=== PATIENT | female | born 1950 | race Caucasian/White ===

== ENCOUNTER 2016-11-25 11:16 | Inpatient (IN) | payer OTHER ==
[2016-11-25 11:36] VITALS: BMI 21.1
--- NOTE | 2016-11-25 13:55 | HP ---
CIWA Score - CIWA Score Nausea/Vomitin-Int. Nausea w/Dry Heave Muscle Tremors: 4-Moderate,w/Arms Extend Anxiety: 4-Mod. Anxious/Guarded Agitation: 3 Paroxysmal Sweats: 1-Minimal Palms Moist Orientation: 0-Oriented Tacttile Disturbances: 2-Mild Itch/Numbness/Burn Auditory Disturbances: 0-None Visual Disturbances: 0-None Headache: 0-None Present CIWA-Ar Total Score: 18 Admission ROS S - HPI Chief Complaint: DETOX TX FOR XANAX DEPENDENCE Allergies/Adverse Reactions: Allergies Allergy/AdvReac Type Severity Reaction Status Date / Time lamotrigine [From Lamictal] Allergy Severe Rash Verified 11/25/16 11:48 History of Present Illness: 66 Y/O FEMALE WITH A HX OF XANAX, COCAINE Exam Limitations: No Limitations - Ebola screening Have you traveled outside of the country in the last 21 days: No Have you had contact with anyone from an Ebola affected area: No Have you been sick,other than usual withdrawal symptoms: No Do you have a fever: No - Review of Systems Constitutional: Chills, Loss of Appetite, Night Sweats, Changes in sleep, Unintentional Wgt. Loss EENT: reports: Dental Problems (NO TEETH;LOST DENTURES SINCE 2005) Respiratory: reports: No Symptoms reported Cardiac: reports: Lightheadedness, Palpitations GI: reports: Constipated, Nausea, Poor Appetite, Vomiting : reports: No Symptoms Reported Musculoskeletal: reports: Back Pain (BACK SX 03/07/16--4 METAL PLATES IN LOWER BACK) Integumentary: reports: No Symptoms Reported Neuro: reports: Headache, Numbness, Seizure (DUE TO WITHDRAWAL SX), Tingling, Tremors, Unsteady Gait, Dizziness Endocrine: reports: No Symptoms Reported Hematology: reports: No Symptoms Reported Psychiatric: reports: Orientated x3, Anxious, Depressed Other Systems: Reviewed and Negative Patient History - Patient Medical History Hx Anemia: No Hx Asthma: No Hx Chronic Obstructive Pulmonary Disease (COPD): No Hx Cancer: No Hx Cardiac Disorders: No Hx Congestive Heart Failure: No Hx Hypertension: No Hx Hypercholesterolemia: No Hx Pacemaker: No HX Cerebrovascular Accident: No Hx Seizures: Yes (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 was in 08/2016) Hx Diabetes: No Hx Gastrointestinal Disorders: No Hx Liver Disease: No Hx Genitourinary Disorders: No Hx Sexually Transmitted Disorders: No Hx Renal Disease (ESRD): No Hx Thyroid Disease: No Hx Human Immunodeficiency Virus (HIV): Yes (since 2000;NORVIR, PREZISTA;TRUVADA) Hx Hepatitis C: Yes (1987) Hx Depression: Yes Hx Suicide Attempt: Yes (pill overdose in 02/2016;DENIES CURRENT S/H IDEATIONS.) Hx Bipolar Disorder: Yes Hx Schizophrenia: No - Patient Surgical History Past Surgical History: Yes Hx Neurologic Surgery: No Hx Cataract Extraction: No Hx Cardiac Surgery: No Hx Lung Surgery: No Hx Breast Surgery: No Hx Breast Biopsy: No Hx Abdominal Surgery: No Hx Appendectomy: No Hx Cholecystectomy: No Hx Genitourinary Surgery: No Hx Section: No Hx Orthopedic Surgery: Yes (LOWER BACK SX WITH 4 PLATES IN 03/07/2016) Other Surgical History: fx, both legs and right knee in 2002 Anesthesia Reaction: No - PPD History Previous Implant?: Yes Documented Results: Negative w/proof Implanted On Prior [facility] Admission?: Yes Date: 10/29/14 Results: 0 mm PPD to be Administered?: Yes - Reproductive History Patient is a Female of Child Bearing Age (11 -55 yrs old): Yes LMP comment: AT AGE 57 Patient : No - Smoking Cessation Smoking history: Current every day smoker Have you smoked in the past 12 months: Yes Aproximately how many cigarettes per day: 7 Cigars Per Day: 0 Hx Chewing Tobacco Use: No Initiated information on smoking cessation: Yes 'Breaking Loose' booklet given: 11/25/16 - Substance & Tx. History Hx Alcohol Use: No (DENIES) Hx Substance Use: Yes (COCAINE/XANAX) Substance Use Type: Cocaine, Tranquilizers Hx Substance Use Treatment: Yes (LAST TX AT [facility]-DETOX; PSYCH @ [facility] 3 MONTHS AGO.) - Substances Abused Crack Route: Smoking Frequency: 1-3 times last 30 days Amount used: $10-15 Age of first use: 37 Date of Last Use: 11/23/16 Xanax Route: Oral Frequency: Daily Amount used: 10 mg. Age of first use: 37 Date of Last Use: 11/24/16 Family Disease History - Family Disease History Family Disease History: Other: Brother (dsa), Sister (alcohol,dsa) Admission Physical Exam BHS - Vital Signs Vital Signs: Vital Signs - 24 hr 11/25/16 11:32 Temperature 98.1 F Pulse Rate 100 H Respiratory 18 Rate Blood Pressure 108/78 - Physical General Appearance: Yes: Appropriately Dressed, Mild Distress, Irritable, Anxious HEENTM: Yes: EOMI, Normocephalic, EMILY, Pharynx Normal Respiratory: Yes: Chest Non-Tender, Lungs Clear, Normal Breath Sounds, No Respiratory Distress Neck: Yes: No masses,lesions,Nodules, Supple, Trachea in good position Breast: Yes: Breast Exam Deferred Cardiology: Yes: Regular Rhythm, Regular Rate, S1, S2 Abdominal: Yes: Normal Bowel Sounds, Non Tender, Soft Genitourinary: Yes: Other (N/C) Back: Yes: Within Normal Limits Musculoskeletal: Yes: full range of Motion, Gait Steady Extremities: Yes: Normal Range of Motion, Non-Tender 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: 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: 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 NML intact, Fully Oriented, Alert Integumentary: Yes: Dry, Warm Lymphatic: Yes: Within Normal Limits - Diagnostic (1) Cocaine dependence Current Visit: Yes Status: Acute Qualifiers: Substance use status: uncomplicated Qualified Code(s): F14.20 - Cocaine dependence, uncomplicated (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 Current Visit: No Status: Resolved (3) Nicotine dependence Current Visit: Yes Status: Acute Qualifiers: Nicotine product type: cigarettes Substance use status: in withdrawal Qualified Code(s): F17.213 - Nicotine dependence, cigarettes, with withdrawal (4) Seizure Current Visit: No Status: Chronic (5) HIV disease Current Visit: Yes Status: Chronic (6) Hepatitis C Current Visit: Yes Status: Chronic Qualifiers: Viral hepatitis chronicity: chronic (7) Methadone maintenance therapy patient Current Visit: Yes Status: Chronic (8) Sedative, hypnotic or anxiolytic dependence with withdrawal, uncomplicated Current Visit: Yes Status: Acute Cleared for Admission S - Detox or Rehab S Level of Care: Medically Managed Detox Regimen/Protocol: Valium S Breath Alcohol Content Breath Alcohol Content: 0 Urine Pregancy Test - Result Urine Test Results: Negative- NO Line Present Urine Drug Screen - Results Drug Screen Negative: No Urine Drug Screen Results: YAZ-Cocaine, BZO-Benzodiazepines, MTD-Methadone, TCA- Tricyclic Antidepress
[2016-11-25] MEDS ORDERED: P-EPHED 60MG/TRIPROLIDI 2.5MG TABLET PO PRN (14:30)
[2016-11-25] MEDS ORDERED: MAG HYDROX/AL HYDROX/SIMETH 30 ML UNIT-DOSE CUP PO PRN (14:30)
[2016-11-25] MEDS ORDERED: hydrOXYzine PAMOATE 50 MG CAPSULE (FP) PO PRN (14:30)
[2016-11-25] MEDS ORDERED: MAGNESIUM CITRATE 300 ML BOTTLE PO PRN (14:30)
[2016-11-25] MEDS ORDERED: ACETAMINOPHEN 325 MG TABLET (FP) PO PRN (14:30)
[2016-11-25] MEDS ORDERED: IBUPROFEN 400 MG TABLET (FP) PO PRN (14:30)
[2016-11-25] MEDS ORDERED: guaiFENesin/D-METHORPHAN HB 10 ML UNIT-DOSE CUPS PO PRN (14:30)
[2016-11-25] MEDS ORDERED: MAGNESIUM HYDROX 2400MG/30ML ORAL SUSPENSION 30 ML CUP PO PRN (14:30)
[2016-11-25] MEDS ORDERED: MENTHOL/PHENOL 1 EACH UD MM PRN (14:30)
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
[2016-11-25] MEDS ORDERED: diazePAM 5 MG TABLET PO ONE (16:30)
[2016-11-25] MEDS: NICOTINE POLACRILEX 2 MG GUM BC PRN (16:42)
[2016-11-25] MEDS: NICOTINE 14 MG/24 HOURS TOPICAL PATCH TD SCH (16:45)
[2016-11-25 21:11] LABS: URINE APPEARANCE SLCLOUDY; URINE BILIRUBIN NEGATIVE (NEGATIVE); URINE BLOOD NEGATIVE (NEGATIVE); URINE COLOR AMBER; URINE GLUCOSE (UA) NEGATIVE (NEGATIVE); URINE KETONE NEGATIVE (NEGATIVE); URINE NITRITE NEGATIVE (NEGATIVE); URINE UROBILINOGEN 4.0 E.U/dl mg/dL (0.2-1.0)
[2016-11-25 21:18] LABS: URINE LEUK ESTERASE 1+ (NEGATIVE); URINE PROTEIN 1+ (NEGATIVE)
[2016-11-25 21:32] LABS: URINE MUCUS MANY; URINE RBC 2 /hpf (0-3); URINE WBC 13 /hpf (3-5)
[2016-11-25] MEDS: QUEtiapine FUMARATE 200 MG TABLET PO SCH (22:14)
[2016-11-25] MEDS: diazePAM 5 MG TABLET PO SCH (22:14)
[2016-11-25] MEDS: THIAMINE HCL 100 MG TABLET (FP) PO SCH (22:14)
[2016-11-26] MEDS: diazePAM 5 MG TABLET PO PRN ×5 (00:52→20:46)
[2016-11-26] MEDS ORDERED: METHADONE HCL 10 MG TABLET ONE (04:10)
[2016-11-26] MEDS ORDERED: METHADONE HCL 40 MG DISPERSABLE TABLET ONE (04:10)
[2016-11-26] MEDS ORDERED: METHADONE HCL 10 MG TABLET PO SCH (06:00)
[2016-11-26] MEDS: diazePAM 5 MG TABLET PO SCH ×3 (06:00→22:37)
[2016-11-26] MEDS: METHADONE 40 MG, METHADONE 30 MG PO SCH (06:00)
--- NOTE | 2016-11-26 09:31 | EKG ---
Test Reason : Blood Pressure : / mmHG Vent. Rate : 083 BPM Atrial Rate : 083 BPM P-R Int : 144 ms QRS Dur : 084 ms QT Int : 364 ms P-R-T Axes : 034 001 036 degrees QTc Int : 427 ms NORMAL SINUS RHYTHM NORMAL ECG NO PREVIOUS ECGS AVAILABLE Confirmed by MD DEE, WARREN ([id number]) on 11/26/2016 9:31:06 AM Referred By: Confirmed By:WARREN PRICE MD
[2016-11-26] MEDS ORDERED: DULoxetine HCL 60 MG CAPSULE.DR PO SCH (10:00)
[2016-11-26] MEDS: PRENATAL VITAMINS W/ FOLIC ACID TABLET (FP) PO SCH (10:40)
[2016-11-26] MEDS: NICOTINE POLACRILEX 2 MG GUM BC PRN (10:41)
[2016-11-26] MEDS: NICOTINE 14 MG/24 HOURS TOPICAL PATCH TD SCH (10:41)
[2016-11-26 10:59] LABS: MCH 32.3 pg (25.7-33.7); MCHC 33.1 g/dl (32.0-36.0); MEAN CELL VOLUME 97.7 fl (80-96); MEAN PLT VOLUME 10.6 fl (7.5-11.1); RDW 14.8 % (11.6-15.6); WHITE BLOOD COUNT 4.1 K/mm3 (4.0-10.0)
[2016-11-26 11:06] LABS: ALBUMIN 3.5 g/dl (3.4-5.0); ANION GAP 8 (8-16); CO2 29 mmol/L (21-32); GLUCOSE,RANDOM 100 mg/dL (74-106)
[2016-11-26 11:09] LABS: ALK PHOS 67 U/L (45-117); BILIRUBIN,TOTAL 0.4 mg/dL (0.2-1.0); CREATININE 0.8 mg/dL (0.55-1.02); SGOT/AST 23 U/L (15-37); SGPT/ALT 24 U/L (12-78); TOT PROT 6.9 g/dl (6.4-8.2)
[2016-11-26 12:09] LABS: PLATELET ESTIMATE DECREASED (NORMAL)
[2016-11-26 12:10] LABS: PLATELET COMMENT2 NO CLOTTING DETECTED
--- NOTE | 2016-11-26 13:01 | PN ---
S CIWA - CIWA Score Nausea/Vomitin Muscle Tremors: 2 Anxiety: 2 Agitation: 2 Paroxysmal Sweats: 2 Orientation: 0-Oriented Tacttile Disturbances: 1-Very Mild Itch/Numbness Auditory Disturbances: 0-None Visual Disturbances: 0-None Headache: 2-Mild CIWA-Ar Total Score: 13 BHS Progress Note (SOAP) Subjective: interrupted sleep, shakes, sweats Objective: 11/26/16 13:00 Vital Signs - 8 hr 11/26/16 11/26/16 06:53 10:00 Temperature 98.1 F 97.2 F L Pulse Rate 87 76 Respiratory 16 18 Rate Blood Pressure 92/55 102/59 Laboratory Last Values WBC 4.1 K/mm3 (4.0-10.0) D 11/26/16 06:00 RBC 3.94 M/mm3 (3.60-5.2) D 11/26/16 06:00 Hgb 12.7 GM/dL (10.7-15.3) D 11/26/16 06:00 Hct 38.5 % (32.4-45.2) D 11/26/16 06:00 MCV 97.7 fl (80-96) H 11/26/16 06:00 MCH 32.3 pg (25.7-33.7) 11/26/16 06:00 MCHC 33.1 g/dl (32.0-36.0) 11/26/16 06:00 RDW 14.8 % (11.6-15.6) 11/26/16 06:00 Plt Count No Result Required. 11/26/16 06:00 MPV 10.6 fl (7.5-11.1) 11/26/16 06:00 Platelet Estimate Decreased (NORMAL) 11/26/16 06:00 Platelet Comment Mod plt clumping 11/26/16 06:00 Platelet Comment No clotting detected 11/26/16 06:00 Sodium 142 mmol/L (136-145) 11/26/16 06:00 Potassium 3.8 mmol/L (3.5-5.1) 11/26/16 06:00 Chloride 105 mmol/L (98-107) 11/26/16 06:00 Carbon Dioxide 29 mmol/L (21-32) 11/26/16 06:00 Anion Gap 8 (8-16) 11/26/16 06:00 BUN 9 mg/dL (7-18) 11/26/16 06:00 Creatinine 0.8 mg/dL (0.55-1.02) D 11/26/16 06:00 Creat Clearance w eGFR > 60 (>60) 11/26/16 06:00 Random Glucose 100 mg/dL (74-106) 11/26/16 06:00 Calcium 9.0 mg/dL (8.5-10.1) 11/26/16 06:00 Total Bilirubin 0.4 mg/dL (0.2-1.0) D 11/26/16 06:00 AST 23 U/L (15-37) D 11/26/16 06:00 ALT 24 U/L (12-78) D 11/26/16 06:00 Alkaline Phosphatase 67 U/L (45-117) 11/26/16 06:00 Total Protein 6.9 g/dl (6.4-8.2) D 11/26/16 06:00 Albumin 3.5 g/dl (3.4-5.0) D 11/26/16 06:00 Urine Color Jade 11/25/16 20:00 Urine Appearance Slcloudy 11/25/16 20:00 Urine pH 5.0 (5.0-8.0) D 11/25/16 20:00 Ur Specific [place] >= 1.030 (1.005-1.025) H 11/25/16 20:00 Urine Protein 1+ (NEGATIVE) H 11/25/16 20:00 Urine Glucose (UA) Negative (NEGATIVE) 11/25/16 20:00 Urine Ketones Negative (NEGATIVE) 11/25/16 20:00 Urine Blood Negative (NEGATIVE) 11/25/16 20:00 Urine Nitrite Negative (NEGATIVE) 11/25/16 20:00 Urine Bilirubin Negative (NEGATIVE) 11/25/16 20:00 Urine Urobilinogen 4.0 e.u/dl mg/dL (0.2-1.0) H 11/25/16 20:00 Ur Leukocyte Esterase 1+ (NEGATIVE) H 11/25/16 20:00 Urine RBC 2 /hpf (0-3) 11/25/16 20:00 Urine WBC 13 /hpf (3-5) 11/25/16 20:00 Ur Epithelial Cells Few /hpf (FEW) 11/25/16 20:00 Urine Mucus Many 11/25/16 20:00 labs noted Assessment: 11/26/16 13:01 withdrawal sx Plan: continue detox
[2016-11-26] MEDS: QUEtiapine FUMARATE 200 MG TABLET PO SCH (22:37)
[2016-11-26] MEDS: THIAMINE HCL 100 MG TABLET (FP) PO SCH (22:37)
[2016-11-26] MEDS: diphenhydrAMINE HCL 50 MG CAPSULE PO PRN (22:37)
[2016-11-27] MEDS: diazePAM 5 MG TABLET PO PRN ×5 (04:17→21:10)
[2016-11-27] MEDS ORDERED: METHADONE HCL 40 MG DISPERSABLE TABLET ONE (05:00)
[2016-11-27] MEDS ORDERED: METHADONE HCL 10 MG TABLET ONE (05:01)
[2016-11-27] MEDS: TRIMETHOBENZAMIDE HCL 200MG/2ML INJ IM PRN (08:01)
[2016-11-27] MEDS: METHADONE 40 MG, METHADONE 30 MG PO SCH (08:49)
[2016-11-27] MEDS: diazePAM 5 MG TABLET PO SCH ×2 (10:15→22:30)
[2016-11-27] MEDS: PRENATAL VITAMINS W/ FOLIC ACID TABLET (FP) PO SCH (10:15)
[2016-11-27] MEDS: NICOTINE 14 MG/24 HOURS TOPICAL PATCH TD SCH (10:17)
[2016-11-27] MEDS: NICOTINE POLACRILEX 2 MG GUM BC PRN (10:17)
[2016-11-27] MEDS: DULoxetine HCL 30 MG CAPSULE.DR (FP) PO SCH (13:07)
--- NOTE | 2016-11-27 18:43 | PN ---
[facility] CIWA - CIWA Score Nausea/Vomitin-No Nausea/No Vomiting Muscle Tremors: 4-Moderate,w/Arms Extend Anxiety: 4-Mod. Anxious/Guarded Agitation: 4-Moderately Restless Paroxysmal Sweats: 3 Orientation: 0-Oriented Tacttile Disturbances: 1-Very Mild Itch/Numbness Auditory Disturbances: 0-None Visual Disturbances: 0-None Headache: 0-None Present CIWA-Ar Total Score: 16 BHS Progress Note (SOAP) Subjective: Anxiety,tremors,sweating,interrupted sleep,restless. Objective: 11/27/16 18:42 Vital Signs - 8 hr 11/27/16 11/27/16 15:08 17:42 Temperature 97.7 F 98.2 F Pulse Rate 91 H 91 H Respiratory 18 20 Rate Blood Pressure 100/65 102/66 Laboratory Last Values WBC 4.1 K/mm3 (4.0-10.0) D 11/26/16 06:00 RBC 3.94 M/mm3 (3.60-5.2) D 11/26/16 06:00 Hgb 12.7 GM/dL (10.7-15.3) D 11/26/16 06:00 Hct 38.5 % (32.4-45.2) D 11/26/16 06:00 MCV 97.7 fl (80-96) H 11/26/16 06:00 MCH 32.3 pg (25.7-33.7) 11/26/16 06:00 MCHC 33.1 g/dl (32.0-36.0) 11/26/16 06:00 RDW 14.8 % (11.6-15.6) 11/26/16 06:00 Plt Count No Result Required. 11/26/16 06:00 MPV 10.6 fl (7.5-11.1) 11/26/16 06:00 Platelet Estimate Decreased (NORMAL) 11/26/16 06:00 Platelet Comment Mod plt clumping 11/26/16 06:00 Platelet Comment No clotting detected 11/26/16 06:00 Sodium 142 mmol/L (136-145) 11/26/16 06:00 Potassium 3.8 mmol/L (3.5-5.1) 11/26/16 06:00 Chloride 105 mmol/L (98-107) 11/26/16 06:00 Carbon Dioxide 29 mmol/L (21-32) 11/26/16 06:00 Anion Gap 8 (8-16) 11/26/16 06:00 BUN 9 mg/dL (7-18) 11/26/16 06:00 Creatinine 0.8 mg/dL (0.55-1.02) D 11/26/16 06:00 Creat Clearance w eGFR > 60 (>60) 11/26/16 06:00 Random Glucose 100 mg/dL (74-106) 11/26/16 06:00 Calcium 9.0 mg/dL (8.5-10.1) 11/26/16 06:00 Total Bilirubin 0.4 mg/dL (0.2-1.0) D 11/26/16 06:00 AST 23 U/L (15-37) D 11/26/16 06:00 ALT 24 U/L (12-78) D 11/26/16 06:00 Alkaline Phosphatase 67 U/L (45-117) 11/26/16 06:00 Total Protein 6.9 g/dl (6.4-8.2) D 11/26/16 06:00 Albumin 3.5 g/dl (3.4-5.0) D 11/26/16 06:00 Urine Color Jade 11/25/16 20:00 Urine Appearance Slcloudy 11/25/16 20:00 Urine pH 5.0 (5.0-8.0) D 11/25/16 20:00 Ur Specific [place] >= 1.030 (1.005-1.025) H 11/25/16 20:00 Urine Protein 1+ (NEGATIVE) H 11/25/16 20:00 Urine Glucose (UA) Negative (NEGATIVE) 11/25/16 20:00 Urine Ketones Negative (NEGATIVE) 11/25/16 20:00 Urine Blood Negative (NEGATIVE) 11/25/16 20:00 Urine Nitrite Negative (NEGATIVE) 11/25/16 20:00 Urine Bilirubin Negative (NEGATIVE) 11/25/16 20:00 Urine Urobilinogen 4.0 e.u/dl mg/dL (0.2-1.0) H 11/25/16 20:00 Ur Leukocyte Esterase 1+ (NEGATIVE) H 11/25/16 20:00 Urine RBC 2 /hpf (0-3) 11/25/16 20:00 Urine WBC 13 /hpf (3-5) 11/25/16 20:00 Ur Epithelial Cells Few /hpf (FEW) 11/25/16 20:00 Urine Mucus Many 11/25/16 20:00 RPR Titer Nonreactive (NONREACTIVE) 11/26/16 06:00 labs noted Assessment: 11/27/16 18:43 Withdrawal sx. Plan: Continue detox
[2016-11-27] MEDS: LOPERAMIDE HCL 2 MG CAPSULE PO PRN (20:02)
[2016-11-27] MEDS: THIAMINE HCL 100 MG TABLET (FP) PO SCH (22:30)
[2016-11-27] MEDS: QUEtiapine FUMARATE 200 MG TABLET PO SCH (22:30)
[2016-11-27] MEDS: diphenhydrAMINE HCL 50 MG CAPSULE PO PRN (22:30)
[2016-11-28] MEDS: diazePAM 5 MG TABLET PO PRN ×3 (02:19→12:29)
[2016-11-28] MEDS: LOPERAMIDE HCL 2 MG CAPSULE PO PRN ×2 (02:20→15:48)
[2016-11-28] MEDS ORDERED: METHADONE HCL 10 MG TABLET ONE (04:58)
[2016-11-28] MEDS ORDERED: METHADONE HCL 40 MG DISPERSABLE TABLET ONE (04:58)
[2016-11-28] MEDS: METHADONE 40 MG, METHADONE 30 MG PO SCH (06:34)
[2016-11-28] MEDS: diazePAM 5 MG TABLET PO SCH ×2 (10:54→22:25)
[2016-11-28] MEDS: DULoxetine HCL 30 MG CAPSULE.DR (FP) PO SCH (10:54)
[2016-11-28] MEDS: PRENATAL VITAMINS W/ FOLIC ACID TABLET (FP) PO SCH (10:54)
[2016-11-28] MEDS: NICOTINE 14 MG/24 HOURS TOPICAL PATCH TD SCH (10:55)
--- NOTE | 2016-11-28 11:30 | PN ---
BHS Progress Note (SOAP) Subjective: sweats diarrhea Objective: 11/28/16 11:29 Vital Signs Temperature 95.7 F L 11/28/16 10:16 Pulse Rate 91 H 11/28/16 10:16 Respiratory Rate 18 11/28/16 10:16 Blood Pressure 108/71 11/28/16 10:16 O2 Sat by Pulse Oximetry (%) AAOx3 lying in bed no acute distress Assessment: 11/28/16 11:30 withdrawal sx Plan: continue detox increase fluids provide pt with pitcher d/c in am
[2016-11-28] MEDS: TRIMETHOBENZAMIDE HCL 200MG/2ML INJ IM PRN (15:54)
[2016-11-28] MEDS: QUEtiapine FUMARATE 200 MG TABLET PO SCH (22:25)
[2016-11-28] MEDS: THIAMINE HCL 100 MG TABLET (FP) PO SCH (22:25)
[2016-11-29] MEDS ORDERED: METHADONE HCL 40 MG DISPERSABLE TABLET ONE (04:50)
[2016-11-29] MEDS ORDERED: METHADONE HCL 10 MG TABLET ONE (04:50)
[2016-11-29] MEDS: METHADONE 40 MG, METHADONE 30 MG PO SCH (05:51)
[2016-11-29 07:07] VITALS: BP 116/71; PULSE 105; TEMP 97.3
--- NOTE | 2016-11-29 09:09 | DS ---
[facility] Detox Discharge Summary Admission Date: 11/25/16 Discharge Date: 11/29/16 - History Present History: Cocaine Dependence, Opioid Dependence Pertinent Past History: insomnia, anxiety, depression, bipolar do, nicotine dependence, was on MMTP in past - Physical Exam Results Vital Signs: Vital Signs Temperature 97.3 F L 11/29/16 07:04 Pulse Rate 105 H 11/29/16 07:04 Respiratory Rate 20 11/29/16 07:04 Blood Pressure 116/71 11/29/16 07:04 O2 Sat by Pulse Oximetry (%) Laboratory Tests 11/25/16 11/26/16 11/26/16 20:00 06:00 06:00 WBC 4.1 D RBC 3.94 D Hgb 12.7 D Hct 38.5 D MCV 97.7 H MCH 32.3 MCHC 33.1 RDW 14.8 Plt Count No Result Required. MPV 10.6 Platelet Estimate Decreased Platelet Comment No clotting detected Sodium 142 Potassium 3.8 Chloride 105 Carbon Dioxide 29 Anion Gap 8 BUN 9 Creatinine 0.8 D Creat Clearance w eGFR > 60 Random Glucose 100 Calcium 9.0 Total Bilirubin 0.4 D AST 23 D ALT 24 D Alkaline Phosphatase 67 Total Protein 6.9 D Albumin 3.5 D Urine Color Jade Urine Appearance Slcloudy Urine pH 5.0 D Ur Specific [place] >= 1.030 H Urine Protein 1+ H Urine Glucose (UA) Negative Urine Ketones Negative Urine Blood Negative Urine Nitrite Negative Urine Bilirubin Negative Urine Urobilinogen 4.0 e.u/dl H Ur Leukocyte Esterase 1+ H Urine RBC 2 Urine WBC 13 Ur Epithelial Cells Few Urine Mucus Many RPR Titer 11/26/16 06:00 WBC RBC Hgb Hct MCV MCH MCHC RDW Plt Count MPV Platelet Estimate Platelet Comment Sodium Potassium Chloride Carbon Dioxide Anion Gap BUN Creatinine Creat Clearance w eGFR Random Glucose Calcium Total Bilirubin AST ALT Alkaline Phosphatase Total Protein Albumin Urine Color Urine Appearance Urine pH Ur Specific [place] Urine Protein Urine Glucose (UA) Urine Ketones Urine Blood Urine Nitrite Urine Bilirubin Urine Urobilinogen Ur Leukocyte Esterase Urine RBC Urine WBC Ur Epithelial Cells Urine Mucus RPR Titer Nonreactive Pertinent Admission Physical Exam Findings: withdrawal sx - Treatment Hospital Course: Detox Protocol Followed, Detoxed Safely, Responded well, Discharged Condition Good, Rehab Referral Accepted - Medication Discharge Medications: Ambulatory Orders Quetiapine Fumarate [Seroquel -] 300 mg PO HS #30 tablet 08/11/15 Darunavir Ethanolate [Prezista -] 600 mg PO BID #60 tab 10/31/14 Emtricitabine/Tenofovir [Truvada -] 1 tab PO DAILY #30 tablet 10/31/14 Ritonavir [Norvir -] 100 mg PO BID #60 tab 10/31/14 Duloxetine HCl [Cymbalta -] 120 mg PO DAILY 11/25/16 - Diagnosis (1) Cocaine dependence Current Visit: Yes Status: Chronic Qualifiers: Substance use status: uncomplicated Qualified Code(s): F14.20 - Cocaine dependence, uncomplicated (2) Opioid dependence on agonist therapy Current Visit: Yes Status: Acute (3) Bipolar disorder Current Visit: Yes Status: Chronic (4) HIV disease Current Visit: Yes Status: Chronic (5) Hepatitis C Current Visit: Yes Status: Chronic Qualifiers: Viral hepatitis chronicity: chronic (6) Nicotine dependence Current Visit: Yes Status: Chronic Qualifiers: Nicotine product type: cigarettes Substance use status: in withdrawal Qualified Code(s): F17.213 - Nicotine dependence, cigarettes, with withdrawal (7) Sedative, hypnotic or anxiolytic dependence with withdrawal, uncomplicated Current Visit: Yes Status: Chronic (8) Bipolar II disorder Current Visit: Yes Status: Chronic (9) Seizure Current Visit: No Status: Inactive - AMA Did Patient Leave Against Medical Advice: No
[2016-11-29] MEDS ORDERED: ONDANSETRON *ODT* 4 MG TABLET SL ONE (09:32)
[2016-11-29] MEDS ORDERED: DIPHENOXYLATE 2.5/ATROPINE.025 1 COMBO TABLET PO ONE (09:39)
[2016-11-29] MEDS: PRENATAL VITAMINS W/ FOLIC ACID TABLET (FP) PO SCH (09:44)
[2016-11-29] MEDS: DULoxetine HCL 30 MG CAPSULE.DR (FP) PO SCH (09:44)
[2016-11-29] MEDS ORDERED: diazePAM 5 MG TABLET PO SCH (10:00)
== END 2016-11-29 09:52 | disposition home or self-care (01) | DRG 773 ==
LOC: YASAS 11:16 → Y6N 15:16
PROVIDERS: ADMIT Internal Medicine Addiction Medicine; ATTEND Internal Medicine Addiction Medicine
PROC: HZ2ZZZZ Detoxification Services for Substance Abuse Treatment (ICD-10-PCS; principal; 2016-11-25)
DX: F13.230 Sedative, hypnotic or anxiolytic dependence with withdrawal, uncomplicated (principal); F11.20 Opioid dependence, uncomplicated; F14.20 Cocaine dependence, uncomplicated; F17.210 Nicotine dependence, cigarettes, uncomplicated; F31.81 Bipolar II disorder; Z21 Asymptomatic human immunodeficiency virus [HIV] infection status; B18.2 Chronic viral hepatitis C; G47.00 Insomnia, unspecified; M54.5 Low back pain; L51.3 Stevens-Johnson syndrome-toxic epidermal necrolysis overlap syndrome; Z86.69 Personal history of other diseases of the nervous system and sense organs; Z88.8 Allergy status to other drugs, medicaments and biological substances; Z91.5 Personal history of self-harm
CPT/HCPCS: 36415; 80053; 81003; 81015; 85027; 86593; 93005; 93010

== ENCOUNTER 2016-12-28 10:33 | Inpatient (IN) | payer OTHER ==
[2016-12-28 12:13] VITALS: BMI 19.8
--- NOTE | 2016-12-28 14:21 | HP ---
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 Allergies/Adverse Reactions: Allergies Allergy/AdvReac Type Severity Reaction Status Date / Time lamotrigine [From Lamictal] Allergy Severe Rash Verified 12/28/16 12:59 History of Present Illness: 66 Y/O FEMALE WITH A HX OF XANAX AND KLONOPIN DEPENDENCE SEEKING DETOX TX. PT HAS AND EXTENSIVE HX OF DRUG TX. STATES LONGEST PERIOD OF SOBRIETY OF ELEVEN YEARS AT ONE STRETCH. - Ebola screening Have you traveled outside of the country in the last 21 days: No Have you had contact with anyone from an Ebola affected area: No Have you been sick,other than usual withdrawal symptoms: No Do you have a fever: No - Review of Systems Constitutional: Chills, Loss of Appetite, Night Sweats, Unintentional Wgt. Loss EENT: reports: Cataracts (CTARACTS, BOTH EYES-NO TREATMENT.), Dental Problems ( NO TEETH) Respiratory: reports: No Symptoms reported Cardiac: reports: Lightheadedness GI: reports: Constipated, Diarrhea, Nausea, Poor Appetite, Vomiting, Indigestion , Abdominal cramping : reports: No Symptoms Reported Musculoskeletal: reports: Back Pain (BACK SX LESS THAN A YEAR AGO--METAL JOHN IN BACK.), Muscle Pain Integumentary: reports: Bruising (N), Rash (PT STATES SLEPT IN A SUSPECTED LOCATION INFESTED WITH ROACHES AND MAYBE BEDBUGS. HIVES ON NECK AND ITCHY RASH/ ESCORIATIONS ON ARMS AND LEGS.) Neuro: reports: Headache, Seizure (BY HX RELATED TO DRUGS.), Tremors, Unsteady Gait, Dizziness Endocrine: reports: No Symptoms Reported Psychiatric: reports: Orientated x3, Anxious, Depressed Other Systems: Reviewed and Negative Patient History - Patient Medical History Hx Anemia: No Hx Asthma: No Hx Chronic Obstructive Pulmonary Disease (COPD): No Hx Cancer: No Hx Cardiac Disorders: No Hx Congestive Heart Failure: No Hx Hypertension: No Hx Hypercholesterolemia: No Hx Pacemaker: No HX Cerebrovascular Accident: No Hx Seizures: Yes (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 in 2011) Hx Diabetes: No Hx Gastrointestinal Disorders: No Hx Liver Disease: No Hx Genitourinary Disorders: No Hx Sexually Transmitted Disorders: No Hx Renal Disease (ESRD): No Hx Thyroid Disease: No Hx Human Immunodeficiency Virus (HIV): Yes (since 2000;NORVIR, PREZISTA;TRUVADA) Hx Hepatitis C: Yes (1987) Hx Depression: Yes Hx Suicide Attempt: Yes (pill overdose in 02/2016;DENIES CURRENT IDEATIONS) Hx Bipolar Disorder: Yes Hx Schizophrenia: No - Patient Surgical History Past Surgical History: Yes Hx Neurologic Surgery: No Hx Cataract Extraction: No Hx Cardiac Surgery: No Hx Lung Surgery: No Hx Breast Surgery: No Hx Breast Biopsy: No Hx Abdominal Surgery: No Hx Appendectomy: No Hx Cholecystectomy: No Hx Genitourinary Surgery: No Hx Section: No Hx Orthopedic Surgery: Yes (LOWER BACK SX WITH 4 PLATES IN 03/07/2016) Hx Hysterectomy: No Other Surgical History: fx, both legs and right knee in 2002 Anesthesia Reaction: No - PPD History Previous Implant?: Yes Documented Results: Negative w/proof Implanted On Prior R Admission?: Yes Date: 10/29/14 Results: 0 mm PPD to be Administered?: Yes - Reproductive History Patient is a Female of Child Bearing Age (11 -55 yrs old): No (POST MENOPAUSAL WOMAN) Patient : No - Smoking Cessation Smoking history: Current every day smoker Have you smoked in the past 12 months: Yes Aproximately how many cigarettes per day: 7 Cigars Per Day: 0 Hx Chewing Tobacco Use: No Initiated information on smoking cessation: Yes 'Breaking Loose' booklet given: 12/28/16 - Substance & Tx. History Hx Alcohol Use: No Hx Substance Use: Yes (XANAX/KLONOPIN/CRACK) Substance Use Type: Tranquilizers Hx Substance Use Treatment: Yes ([facility] - Substances Abused Crack Route: Smoking Frequency: 1-3 times last 30 days Amount used: $30-40 Age of first use: 32 Date of Last Use: 12/26/16 Xanax Route: Oral Frequency: Daily Amount used: 10 mg. Age of first use: 37 Date of Last Use: 12/27/16 Klonopin Route: Oral Frequency: 1-3 times last 30 days Amount used: 10 mg. Age of first use: 37 Date of Last Use: 12/18/16 Family Disease History - Family Disease History Family Disease History: Other: Brother (dsa), Sister (alcohol,dsa) Admission Physical Exam S - Vital Signs Vital Signs: Vital Signs - 24 hr 12/28/16 12:09 Temperature 98.2 F Pulse Rate 80 Respiratory 18 Rate Blood Pressure 108/73 - Physical General Appearance: Yes: Moderate Distress, Irritable, Anxious HEENTM: Yes: EOMI, Normocephalic, EMILY, Pharynx Normal Respiratory: Yes: Chest Non-Tender, Lungs Clear, Normal Breath Sounds, No Respiratory Distress Neck: Yes: No masses,lesions,Nodules, Supple, Trachea in good position Breast: Yes: Breast Exam Deferred Cardiology: Yes: Regular Rhythm, Regular Rate, S1, S2 Abdominal: Yes: Normal Bowel Sounds, Non Tender, Soft Genitourinary: Yes: Other Back: Yes: Within Normal Limits Musculoskeletal: Yes: full range of Motion, Gait Steady Extremities: Yes: Normal Range of Motion, Non-Tender 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: Yes: 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.) Lymphatic: Yes: Within Normal Limits - Diagnostic (1) Methadone maintenance therapy patient Current Visit: Yes Status: Chronic (2) Nicotine dependence Current Visit: Yes Status: Acute Qualifiers: Nicotine product type: cigarettes Substance use status: in withdrawal Qualified Code(s): F17.213 - Nicotine dependence, cigarettes, with withdrawal; F17.213 - Nicotine dependence, cigarettes, with withdrawal (3) Sedative, hypnotic or anxiolytic dependence with withdrawal, uncomplicated Current Visit: Yes Status: Acute (4) HIV (human immunodeficiency virus infection) Current Visit: Yes Status: Chronic (5) Cocaine dependence Current Visit: Yes Status: Acute Qualifiers: Substance use status: uncomplicated Qualified Code(s): F14.20 - Cocaine dependence, uncomplicated; F14.20 - Cocaine dependence, uncomplicated; F14.20 - Cocaine dependence, uncomplicated (6) Hepatitis C Current Visit: Yes Status: Chronic Qualifiers: Viral hepatitis chronicity: unspecified Hepatic coma status: without hepatic coma Qualified Code(s): B19.20 - Unspecified viral hepatitis C without hepatic coma; B19.20 - Unspecified viral hepatitis C without hepatic coma (7) Rash and nonspecific skin eruption Current Visit: Yes Status: Acute Cleared for Admission [facility] - Detox or Rehab [facility] Level of Care: Medically Managed Detox Regimen/Protocol: Valium [facility] Breath Alcohol Content Breath Alcohol Content: 0 Urine Pregancy Test - Result Urine Test Results: Negative- NO Line Present Urine Drug Screen - Results Drug Screen Negative: No Urine Drug Screen Results: YAZ-Cocaine, BZO-Benzodiazepines, MTD-Methadone
[2016-12-28] MEDS ORDERED: MENTHOL/PHENOL 1 EACH UD MM PRN (14:55)
[2016-12-28] MEDS ORDERED: diphenhydrAMINE HCL 50 MG CAPSULE PO PRN (14:55)
[2016-12-28] MEDS ORDERED: guaiFENesin/D-METHORPHAN HB 10 ML UNIT-DOSE CUPS PO PRN (14:55)
[2016-12-28] MEDS ORDERED: NICOTINE POLACRILEX 2 MG GUM BC PRN (14:55)
[2016-12-28] MEDS ORDERED: IBUPROFEN 400 MG TABLET (FP) PO PRN (14:55)
[2016-12-28] MEDS ORDERED: MAGNESIUM HYDROX 2400MG/30ML ORAL SUSPENSION 30 ML CUP PO PRN (14:55)
[2016-12-28] MEDS ORDERED: hydrOXYzine PAMOATE 50 MG CAPSULE (FP) PO PRN (14:55)
[2016-12-28] MEDS ORDERED: LOPERAMIDE HCL 2 MG CAPSULE PO PRN (14:55)
[2016-12-28] MEDS ORDERED: MAG HYDROX/AL HYDROX/SIMETH 30 ML UNIT-DOSE CUP PO PRN (14:55)
[2016-12-28] MEDS ORDERED: ACETAMINOPHEN 325 MG TABLET (FP) PO PRN (14:55)
[2016-12-28] MEDS ORDERED: MAGNESIUM CITRATE 300 ML BOTTLE PO PRN (14:55)
[2016-12-28] MEDS ORDERED: P-EPHED 60MG/TRIPROLIDI 2.5MG TABLET PO PRN (14:55)
[2016-12-28] MEDS ORDERED: PERMETHRIN 5% TOPICAL CREAM 60 GM TUBE TP ONE (15:03)
[2016-12-28] MEDS ORDERED: diazePAM 5 MG TABLET PO ONE (15:56)
[2016-12-28] MEDS: NICOTINE 14 MG/24 HOURS TOPICAL PATCH TD SCH (17:25)
[2016-12-28] MEDS ORDERED: HYDROCORTISONE 1% TOPICAL CREAM 30 GM TUBE TP SCH (18:00)
[2016-12-28] MEDS: EMTRICITABINE 200MG/TENOFOVIR 300MG PO SCH (18:00)
[2016-12-28 21:59] LABS: URINE APPEARANCE CLEAR; URINE BILIRUBIN NEGATIVE (NEGATIVE); URINE BLOOD NEGATIVE (NEGATIVE); URINE COLOR YELLOW; URINE GLUCOSE (UA) NEGATIVE (NEGATIVE); URINE KETONE NEGATIVE (NEGATIVE); URINE NITRITE NEGATIVE (NEGATIVE); URINE PROTEIN NEGATIVE (NEGATIVE)
[2016-12-28] MEDS: RITONAVIR 100 MG TABLET PO SCH (22:22)
[2016-12-28] MEDS: THIAMINE HCL 100 MG TABLET (FP) PO SCH (22:22)
[2016-12-28] MEDS: DARUNAVIR ETHANOLATE 600 MG TAB PO SCH (22:22)
[2016-12-28] MEDS: diazePAM 5 MG TABLET PO SCH (22:25)
[2016-12-29] MEDS: diazePAM 5 MG TABLET PO SCH ×3 (05:25→22:13)
[2016-12-29] MEDS: METHADONE HCL 40 MG DISPERSABLE TABLET PO SCH (06:16)
[2016-12-29] MEDS: diazePAM 5 MG TABLET PO PRN ×4 (07:30→20:22)
[2016-12-29 09:35] LABS: MCHC 32.1 g/dl (32.0-36.0); MEAN CELL VOLUME 96.7 fl (80-96); MEAN PLT VOLUME 10.8 fl (7.5-11.1); PLATELET COUNT 147 K/MM3 (134-434); RDW 14.3 % (11.6-15.6); WHITE BLOOD COUNT 4.2 K/mm3 (4.0-10.0)
[2016-12-29 10:07] LABS: ALBUMIN 3.2 g/dl (3.4-5.0); ALK PHOS 71 U/L (45-117); ANION GAP 5 (8-16); BILIRUBIN,TOTAL 0.7 mg/dL (0.2-1.0); CALCIUM 8.4 mg/dL (8.5-10.1); CO2 31 mmol/L (21-32); CREATININE 0.5 mg/dL (0.55-1.02); GLUCOSE,RANDOM 84 mg/dL (74-106); SGOT/AST 21 U/L (15-37); SGPT/ALT 18 U/L (12-78); TOT PROT 6.5 g/dl (6.4-8.2)
[2016-12-29] MEDS: NICOTINE 14 MG/24 HOURS TOPICAL PATCH TD SCH (10:19)
[2016-12-29] MEDS: EMTRICITABINE 200MG/TENOFOVIR 300MG PO SCH (10:19)
[2016-12-29] MEDS: RITONAVIR 100 MG TABLET PO SCH ×2 (10:19→22:14)
[2016-12-29] MEDS: PRENATAL VITAMINS W/ FOLIC ACID TABLET (FP) PO SCH (10:19)
[2016-12-29] MEDS: DARUNAVIR ETHANOLATE 600 MG TAB PO SCH ×2 (10:19→22:13)
[2016-12-29] MEDS: HYDROCORTISONE 1% TOPICAL CREAM 30 GM TUBE TP SCH ×4 (10:19→22:14)
--- NOTE | 2016-12-29 10:28 | PN ---
S CIWA - CIWA Score Nausea/Vomitin Muscle Tremors: 3 Anxiety: 3 Agitation: 3 Paroxysmal Sweats: 1-Minimal Palms Moist Orientation: 0-Oriented Tacttile Disturbances: 1-Very Mild Itch/Numbness Auditory Disturbances: 1-Very Mild Visual Disturbances: 0-None Headache: 2-Mild CIWA-Ar Total Score: 17 BHS Progress Note (SOAP) Subjective: alert,irritable,anxious,interrupted sleep,tremor Objective: 12/29/16 10:23 Vital Signs Temperature 97.7 F 12/29/16 06:00 Pulse Rate 67 12/29/16 06:00 Respiratory Rate 18 12/29/16 06:00 Blood Pressure 114/69 12/29/16 06:00 O2 Sat by Pulse Oximetry (%) ekg nsr.low voltage Laboratory Last Values WBC 4.2 K/mm3 (4.0-10.0) 12/29/16 07:00 RBC 4.16 M/mm3 (3.60-5.2) 12/29/16 07:00 Hgb 12.9 GM/dL (10.7-15.3) 12/29/16 07:00 Hct 40.2 % (32.4-45.2) 12/29/16 07:00 MCV 96.7 fl (80-96) H 12/29/16 07:00 MCH 31.0 pg (25.7-33.7) 12/29/16 07:00 MCHC 32.1 g/dl (32.0-36.0) 12/29/16 07:00 RDW 14.3 % (11.6-15.6) 12/29/16 07:00 Plt Count 147 K/MM3 (134-434) D 12/29/16 07:00 MPV 10.8 fl (7.5-11.1) 12/29/16 07:00 Urine Color Yellow 12/28/16 21:30 Urine Appearance Clear 12/28/16 21:30 Urine pH 7.0 (5.0-8.0) D 12/28/16 21:30 Urine Protein Negative (NEGATIVE) 12/28/16 21:30 Urine Glucose (UA) Negative (NEGATIVE) 12/28/16 21:30 Urine Ketones Negative (NEGATIVE) 12/28/16 21:30 Urine Blood Negative (NEGATIVE) 12/28/16 21:30 Urine Nitrite Negative (NEGATIVE) 12/28/16 21:30 Urine Bilirubin Negative (NEGATIVE) 12/28/16 21:30 Urine Urobilinogen 2.0 mg/dL (0.2-1.0) H 12/28/16 21:30 labs pending no chest pain,no sob,no dizziness Assessment: 12/29/16 10:27 withdrawal symptom Plan: continue detox
[2016-12-29 11:15] LABS: URINE LEUK ESTERASE 2+ (NEGATIVE)
[2016-12-29 11:17] LABS: URINE BACTERIA MODERATE /hpf (NEGATIVE); URINE RBC 0-3 /hpf (0-3)
--- NOTE | 2016-12-29 12:02 | EKG ---
Test Reason : Blood Pressure : / mmHG Vent. Rate : 062 BPM Atrial Rate : 062 BPM P-R Int : 150 ms QRS Dur : 080 ms QT Int : 410 ms P-R-T Axes : 028 -04 029 degrees QTc Int : 416 ms NORMAL SINUS RHYTHM LOW VOLTAGE QRS SEPTAL INFARCT , AGE UNDETERMINED ABNORMAL ECG WHEN COMPARED WITH ECG OF 25-NOV-2016 15:07, SEPTAL INFARCT IS NOW PRESENT Confirmed by MAGUE LOO, NUHA ([id number]) on 12/29/2016 12:02:12 PM Referred By: Confirmed By:NUHA BOWSER MD
--- NOTE | 2016-12-29 16:40 | CONSULT ---
[facility] Psychiatric Consult - Data Date of interview: 12/29/16 Admission source: [facility] Identifying data: Another admission to [facility] for this 66 y/o female seeking detox treatment on for opioid,cocaine and xanax dependence.Patient is single,a mother of one,domiciled ([place] setting),unemployed and supported on SSI benefits. Substance Abuse History: Discussed in this interview.Patient confirmed substance abuse described in this report. Smoking Cessation. Smoking history: Current every day smoker. Have you smoked in the past 12 months: Yes. Aproximately how many cigarettes per day: 7. Cigars Per Day: 0. Hx Chewing Tobacco Use: No. Initiated information on smoking cessation: Yes. 'Breaking Loose' booklet given: 12/28/16. - Substance & Tx. History. Hx Alcohol Use: No. Hx Substance Use: Yes (XANAX/KLONOPIN/CRACK). Substance Use Type: Tranquilizers. Hx Substance Use Treatment: Yes ([facility] - Substances Abused. Crack. Route: Smoking. Frequency: 1-3 times last 30 days. Amount used: $30-40. Age of first use: 32. Date of Last Use: 12/26/16. Xanax. Route: Oral. Frequency: Daily. Amount used: 10 mg. Age of first use: 37. Date of Last Use: 12/27/16. Klonopin. Route: Oral. Frequency: 1-3 times last 30 days. Amount used: 10 mg. Age of first use: 37. Date of Last Use: 12/18/16 Medical History: Medical co-morbidities : HIV infection since 2000 (on ART medications),hepatitis C,withdrawal-related seizures,lower back pain and a history of orthosurgery for fracture of both legs + right knee in 2002 ( consequence of a suicide attempt via jumping onto train tracks). Psychiatric History: No change in longitudinal psychiatric history.Heavy history of psychiatric hospitalizations (more than 10 admissions).Diagnosed with Bipolar Disorder.Known to [facility] and [facility].Ms Olivarez is still followed at the [facility] in [facility] (medical + psychiatric medications).Currently on cymbalta 120 mg/day + seroquel 300 mg/hs as per self- report (not able to verify/patient is not reliable).Patient is currently on methadone maintenance (80 mg/day) at the [facility].History of multiple suicide attempts (overdoses,self-mutilation,jumping onto train tracks). Physical/Sexual Abuse/Trauma History: No reported history of abuse. Additional Comment: Urine Drug Screen Results: YAZ-Cocaine, BZO-Benzodiazepines , MTD-Methadone.Noted. Mental Status Exam - Mental Status Exam Alert and Oriented to: Time, Place, Person Cognitive Function: Good Patient Appearance: Well Groomed Mood: Hopeful, Euthymic (calm) Affect: Appropriate, Normal Range Patient Behavior: Fatigued, Cooperative Speech Pattern: Clear Voice Loudness: Normal Thought Process: Intact, Goal Oriented Thought Disorder: Not Present Hallucinations: Denies Suicidal Ideation: Denies Homicidal Ideation: Denies Insight/Judgement: Poor Sleep: Poorly, Difficulty falling asleep Appetite: Good Muscle strength/Tone: Normal Gait/Station: Normal Psychiatric Findings - Problem List ([place] 1, 2,3) (1) Opioid dependence on agonist therapy Status: Acute (2) Sedative, hypnotic or anxiolytic dependence with withdrawal, uncomplicated Status: Acute (3) Cocaine dependence Status: Acute Qualifiers: Substance use status: uncomplicated Qualified Code(s): F14.20 - Cocaine dependence, uncomplicated; F14.20 - Cocaine dependence, uncomplicated; F14.20 - Cocaine dependence, uncomplicated (4) Nicotine dependence Status: Acute Qualifiers: Nicotine product type: cigarettes Substance use status: in withdrawal Qualified Code(s): F17.213 - Nicotine dependence, cigarettes, with withdrawal; F17.213 - Nicotine dependence, cigarettes, with withdrawal (5) Bipolar disorder Status: Chronic Comment: History.On medications. (6) HIV (human immunodeficiency virus infection) Status: Chronic (7) Hepatitis C Status: Chronic Qualifiers: Viral hepatitis chronicity: unspecified Hepatic coma status: without hepatic coma Qualified Code(s): B19.20 - Unspecified viral hepatitis C without hepatic coma; B19.20 - Unspecified viral hepatitis C without hepatic coma (8) Insomnia Status: Acute - Initial Treatment Plan Initial Treatment Plan: Psychoeducation.Detoxification.Medications : duloxetine 40 mg po daily + seroquel 100 mg po hs.Side effects/benefits discussed with the patient.She agrees with this careplan.Patient authorized contact with pharmacist at [phone] ([facility]) : seroquel 300 mg # 30 refillled on 11/25/16 but no refill for cymbalta since August 2016.Noted recent script for prozac 40 mg/day at another pharmacy.Patient is unreliable.Observation.Declines scripts at discharge.
[2016-12-29] MEDS: QUEtiapine FUMARATE 100 MG TABLET (FP) PO SCH (22:13)
[2016-12-29] MEDS: THIAMINE HCL 100 MG TABLET (FP) PO SCH (22:13)
[2016-12-30] MEDS: diazePAM 5 MG TABLET PO PRN ×4 (05:22→18:36)
[2016-12-30] MEDS: METHADONE HCL 40 MG DISPERSABLE TABLET PO SCH (06:13)
[2016-12-30] MEDS: PRENATAL VITAMINS W/ FOLIC ACID TABLET (FP) PO SCH (10:20)
[2016-12-30] MEDS: DARUNAVIR ETHANOLATE 600 MG TAB PO SCH ×2 (10:21→22:21)
[2016-12-30] MEDS: DULoxetine HCL 20 MG CAPSULE.DR (FP) PO SCH (10:21)
[2016-12-30] MEDS: RITONAVIR 100 MG TABLET PO SCH ×2 (10:21→22:22)
[2016-12-30] MEDS: diazePAM 5 MG TABLET PO SCH ×2 (10:22→22:22)
[2016-12-30] MEDS: EMTRICITABINE 200MG/TENOFOVIR 300MG PO SCH (10:22)
[2016-12-30] MEDS: HYDROCORTISONE 1% TOPICAL CREAM 30 GM TUBE TP SCH (10:22)
[2016-12-30] MEDS: NICOTINE 14 MG/24 HOURS TOPICAL PATCH TD SCH (10:22)
--- NOTE | 2016-12-30 10:42 | PN ---
S CIWA - CIWA Score Nausea/Vomitin Muscle Tremors: 3 Anxiety: 2 Agitation: 2 Paroxysmal Sweats: 1-Minimal Palms Moist Orientation: 0-Oriented Tacttile Disturbances: 1-Very Mild Itch/Numbness Auditory Disturbances: 1-Very Mild Visual Disturbances: 0-None Headache: 2-Mild CIWA-Ar Total Score: 15 S Progress Note (SOAP) Subjective: alert,irritable,anxious,interrupted sleep,tremor Objective: 12/30/16 10:38 Vital Signs Temperature 96.7 F L 12/30/16 09:28 Pulse Rate 76 12/30/16 09:28 Respiratory Rate 15 12/30/16 09:28 Blood Pressure 104/62 12/30/16 09:28 O2 Sat by Pulse Oximetry (%) 12/30/16 10:38 Laboratory Last Values WBC 4.2 K/mm3 (4.0-10.0) 12/29/16 07:00 RBC 4.16 M/mm3 (3.60-5.2) 12/29/16 07:00 Hgb 12.9 GM/dL (10.7-15.3) 12/29/16 07:00 Hct 40.2 % (32.4-45.2) 12/29/16 07:00 MCV 96.7 fl (80-96) H 12/29/16 07:00 MCH 31.0 pg (25.7-33.7) 12/29/16 07:00 MCHC 32.1 g/dl (32.0-36.0) 12/29/16 07:00 RDW 14.3 % (11.6-15.6) 12/29/16 07:00 Plt Count 147 K/MM3 (134-434) D 12/29/16 07:00 MPV 10.8 fl (7.5-11.1) 12/29/16 07:00 Sodium 141 mmol/L (136-145) 12/29/16 07:00 Potassium 4.2 mmol/L (3.5-5.1) 12/29/16 07:00 Chloride 105 mmol/L (98-107) 12/29/16 07:00 Carbon Dioxide 31 mmol/L (21-32) 12/29/16 07:00 Anion Gap 5 (8-16) L 12/29/16 07:00 BUN 13 mg/dL (7-18) D 12/29/16 07:00 Creatinine 0.5 mg/dL (0.55-1.02) L D 12/29/16 07:00 Creat Clearance w eGFR > 60 (>60) 12/29/16 07:00 Random Glucose 84 mg/dL (74-106) 12/29/16 07:00 Calcium 8.4 mg/dL (8.5-10.1) L 12/29/16 07:00 Total Bilirubin 0.7 mg/dL (0.2-1.0) D 12/29/16 07:00 AST 21 U/L (15-37) 12/29/16 07:00 ALT 18 U/L (12-78) D 12/29/16 07:00 Alkaline Phosphatase 71 U/L (45-117) 12/29/16 07:00 Total Protein 6.5 g/dl (6.4-8.2) 12/29/16 07:00 Albumin 3.2 g/dl (3.4-5.0) L 12/29/16 07:00 Urine Color Yellow 12/28/16 21:30 Urine Appearance Clear 12/28/16 21:30 Urine pH 7.0 (5.0-8.0) D 12/28/16 21:30 Ur Specific [place] 1.015 (1.005-1.025) 12/28/16 21:30 Urine Protein Negative (NEGATIVE) 12/28/16 21:30 Urine Glucose (UA) Negative (NEGATIVE) 12/28/16 21:30 Urine Ketones Negative (NEGATIVE) 12/28/16 21:30 Urine Blood Negative (NEGATIVE) 12/28/16 21:30 Urine Nitrite Negative (NEGATIVE) 12/28/16 21:30 Urine Bilirubin Negative (NEGATIVE) 12/28/16 21:30 Urine Urobilinogen 2.0 mg/dL (0.2-1.0) H 12/28/16 21:30 Ur Leukocyte Esterase 2+ (NEGATIVE) H 12/28/16 21:30 Urine RBC 0-3 /hpf (0-3) 12/28/16 21:30 Urine WBC 10-20 (3-5) 12/28/16 21:30 Ur Epithelial Cells Few /HPF 12/28/16 21:30 Urine Bacteria Moderate /hpf (NEGATIVE) 12/28/16 21:30 RPR Titer Nonreactive (NONREACTIVE) 12/29/16 07:00 12/30/16 10:41 Assessment: 12/30/16 10:41 withdrawal symptom Plan: continue detox,repeat ua
[2016-12-30] MEDS: QUEtiapine FUMARATE 100 MG TABLET (FP) PO SCH (22:22)
[2016-12-30] MEDS: THIAMINE HCL 100 MG TABLET (FP) PO SCH (22:22)
[2016-12-30] MEDS: FLUOCINONIDE 0.05% CREAM (60 GM TUBE) TP SCH (22:56)
[2016-12-31] MEDS: diazePAM 5 MG TABLET PO PRN ×3 (05:10→13:55)
[2016-12-31] MEDS: METHADONE HCL 40 MG DISPERSABLE TABLET PO SCH (06:17)
[2016-12-31] MEDS: PRENATAL VITAMINS W/ FOLIC ACID TABLET (FP) PO SCH (09:55)
[2016-12-31] MEDS: RITONAVIR 100 MG TABLET PO SCH ×2 (09:56→23:41)
[2016-12-31] MEDS: EMTRICITABINE 200MG/TENOFOVIR 300MG PO SCH (09:56)
[2016-12-31] MEDS: DARUNAVIR ETHANOLATE 600 MG TAB PO SCH ×2 (09:56→23:41)
[2016-12-31] MEDS: DULoxetine HCL 20 MG CAPSULE.DR (FP) PO SCH (09:57)
[2016-12-31] MEDS: NICOTINE 14 MG/24 HOURS TOPICAL PATCH TD SCH (10:00)
[2016-12-31] MEDS: FLUOCINONIDE 0.05% CREAM (60 GM TUBE) TP SCH ×2 (10:00→23:41)
[2016-12-31] MEDS: diazePAM 5 MG TABLET PO SCH ×2 (10:00→23:42)
--- NOTE | 2016-12-31 10:22 | PN ---
S Progress Note (SOAP) Subjective: alert,irritable,anxious,interrupted sleep, Objective: 12/31/16 10:21 Vital Signs Temperature 96.8 F L 12/31/16 06:13 Pulse Rate 80 12/31/16 06:13 Respiratory Rate 18 12/31/16 06:13 Blood Pressure 106/65 12/31/16 06:13 O2 Sat by Pulse Oximetry (%) 12/31/16 10:22 Assessment: 12/31/16 10:21 withdrawal symptom 12/31/16 10:22 Plan: continue detox,repeat ua,discharge in am
[2016-12-31 18:38] LABS: URINE APPEARANCE CLEAR; URINE BILIRUBIN NEGATIVE (NEGATIVE); URINE BLOOD NEGATIVE (NEGATIVE); URINE COLOR LTYELLOW; URINE GLUCOSE (UA) NEGATIVE (NEGATIVE); URINE KETONE NEGATIVE (NEGATIVE); URINE NITRITE NEGATIVE (NEGATIVE); URINE PROTEIN NEGATIVE (NEGATIVE); URINE UROBILINOGEN NEGATIVE mg/dL (0.2-1.0)
[2016-12-31 20:56] LABS: URINE LEUK ESTERASE 1+ (NEGATIVE)
[2016-12-31] MEDS: QUEtiapine FUMARATE 100 MG TABLET (FP) PO SCH (23:41)
[2016-12-31] MEDS: THIAMINE HCL 100 MG TABLET (FP) PO SCH (23:42)
[2017-01-01] MEDS: METHADONE HCL 40 MG DISPERSABLE TABLET PO SCH (06:17)
--- NOTE | 2017-01-01 08:23 | DS ---
[facility] Detox Discharge Summary Admission Date: 12/28/16 Discharge Date: 01/01/17 - History Present History: Cocaine Dependence, Sedative Dependence, MMTP Pertinent Past History: HIV HEPATITIS C SKIN RASH - Physical Exam Results Vital Signs: Vital Signs Temperature 98.1 F 01/01/17 06:24 Pulse Rate 81 01/01/17 06:24 Respiratory Rate 18 01/01/17 06:24 Blood Pressure 101/62 01/01/17 06:24 O2 Sat by Pulse Oximetry (%) Pertinent Admission Physical Exam Findings: WITHDRAWAL SYMPTOM - Treatment Hospital Course: Detox Protocol Followed, Detoxed Safely, Responded well, Discharged Condition Good Patient has Accepted a Rehab Referral to: FOLLOW UP WITH AFTER CARE PROGRAM ARRANGEMENT - Medication Discharge Medications: Ambulatory Orders Quetiapine Fumarate [Seroquel -] 300 mg PO HS #30 tablet 10/28/14 Darunavir Ethanolate [Prezista -] 600 mg PO BID #60 tab 10/31/14 Emtricitabine/Tenofovir [Truvada -] 1 tab PO DAILY #30 tablet 10/31/14 Ritonavir [Norvir -] 100 mg PO BID #60 tab 10/31/14 Duloxetine HCl [Cymbalta -] 120 mg PO DAILY 11/25/16 - Diagnosis (1) Cocaine dependence Current Visit: Yes Status: Acute Qualifiers: Substance use status: uncomplicated Qualified Code(s): F14.20 - Cocaine dependence, uncomplicated; F14.20 - Cocaine dependence, uncomplicated; F14.20 - Cocaine dependence, uncomplicated (2) Sedative, hypnotic or anxiolytic dependence with withdrawal, uncomplicated Current Visit: Yes Status: Acute (3) Hepatitis C Current Visit: Yes Status: Chronic Qualifiers: Viral hepatitis chronicity: unspecified Hepatic coma status: without hepatic coma Qualified Code(s): B19.20 - Unspecified viral hepatitis C without hepatic coma; B19.20 - Unspecified viral hepatitis C without hepatic coma (4) Methadone maintenance therapy patient Current Visit: Yes Status: Chronic (5) HIV disease Current Visit: No Status: Chronic (6) Bipolar disorder Current Visit: Yes Status: Chronic - AMA Did Patient Leave Against Medical Advice: No
[2017-01-01] MEDS: DULoxetine HCL 20 MG CAPSULE.DR (FP) PO SCH (09:38)
[2017-01-01] MEDS ORDERED: diazePAM 5 MG TABLET PO SCH (10:00)
[2017-01-01 10:55] VITALS: BP 95/63; PULSE 79; TEMP 98.3
== END 2017-01-01 10:23 | disposition home or self-care (01) | DRG 773 ==
LOC: YASAS 10:33 → Y6N 14:28
PROVIDERS: ADMIT Internal Medicine; ATTEND Internal Medicine
PROC: HZ2ZZZZ Detoxification Services for Substance Abuse Treatment (ICD-10-PCS; principal; 2016-12-28)
DX: F13.230 Sedative, hypnotic or anxiolytic dependence with withdrawal, uncomplicated (principal); F11.20 Opioid dependence, uncomplicated; F14.20 Cocaine dependence, uncomplicated; F17.213 Nicotine dependence, cigarettes, with withdrawal; F31.9 Bipolar disorder, unspecified; B19.20 Unspecified viral hepatitis C without hepatic coma; Z21 Asymptomatic human immunodeficiency virus [HIV] infection status; G47.00 Insomnia, unspecified; R21 Rash and other nonspecific skin eruption; Z86.69 Personal history of other diseases of the nervous system and sense organs; Z91.5 Personal history of self-harm
CPT/HCPCS: 36415; 80053; 81003; 81015; 85027; 86593; 93005; 93010

== ENCOUNTER 2017-04-25 13:06 | Inpatient (IN) | payer OTHER ==
[2017-04-25 14:27] VITALS: BMI 21.9
--- NOTE | 2017-04-25 14:59 | HP ---
CIWA Score - CIWA Score Nausea/Vomitin Muscle Tremors: 3 Anxiety: 3 Agitation: 3 Paroxysmal Sweats: 2 Orientation: 0-Oriented Tacttile Disturbances: 2-Mild Itch/Numbness/Burn Auditory Disturbances: 2-Mild Harshness/Frighten Visual Disturbances: 1-Very Mild Sensitivity Headache: 2-Mild CIWA-Ar Total Score: 21 Admission ROS BHS - HPI Chief Complaint: i need help to stop using xanax,klonopin last detox [facility] 12/28/16 to 01/01/17 seeking detox, weakness low back surgery 03/07/16 weight loss pneumothorax left lung in 2013 mmtp 80 mgs/day, hiv longest period sobriety 11 years Allergies/Adverse Reactions: Allergies Allergy/AdvReac Type Severity Reaction Status Date / Time lamotrigine [From Lamictal] Allergy Severe Rash Verified 04/25/17 14:47 Exam Limitations: No Limitations - Ebola screening Have you traveled outside of the country in the last 21 days: No Have you had contact with anyone from an Ebola affected area: No Have you been sick,other than usual withdrawal symptoms: No - Review of Systems Constitutional: Chills, Loss of Appetite, Malaise, Night Sweats, Changes in sleep, Weakness, Unintentional Wgt. Loss EENT: reports: Tearing, Nose Congestion Respiratory: reports: No Symptoms reported Cardiac: reports: No Symptoms Reported, Palpitations GI: reports: Blood Streaked Bowels, Indigestion : reports: No Symptoms Reported Musculoskeletal: reports: Back Pain, Joint Pain, Muscle Pain Integumentary: reports: Dryness Neuro: reports: Headache, Tremors, Weakness Endocrine: reports: No Symptoms Reported Hematology: reports: No Symptoms Reported Psychiatric: reports: Anxious, Depressed Patient History - Patient Medical History Hx Anemia: No Hx Asthma: No Hx Chronic Obstructive Pulmonary Disease (COPD): No Hx Cancer: No Hx Cardiac Disorders: No Hx Congestive Heart Failure: No Hx Hypertension: No Hx Hypercholesterolemia: No Hx Pacemaker: No HX Cerebrovascular Accident: No Hx Seizures: Yes (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 in 2016) Hx Diabetes: No Hx Gastrointestinal Disorders: No Hx Liver Disease: No Hx Genitourinary Disorders: No Hx Sexually Transmitted Disorders: No Hx Renal Disease (ESRD): No Hx Thyroid Disease: No Hx Human Immunodeficiency Virus (HIV): Yes (since 2000;NORVIR, PREZISTA;TRUVADA) Hx Hepatitis C: Yes (1987) Hx Depression: Yes Hx Suicide Attempt: Yes (pill overdose in 02/2016;DENIES CURRENT IDEATIONS) Hx Bipolar Disorder: Yes Hx Schizophrenia: No Other Medical History: no suicidal,no homicidal, - Patient Surgical History Past Surgical History: Yes Hx Neurologic Surgery: No Hx Cataract Extraction: No Hx Cardiac Surgery: No Hx Lung Surgery: No Hx Breast Surgery: No Hx Breast Biopsy: No Hx Abdominal Surgery: No Hx Appendectomy: No Hx Cholecystectomy: No Hx Genitourinary Surgery: No Hx Section: No Hx Orthopedic Surgery: Yes (LOWER BACK SX WITH 4 PLATES IN 03/07/2016) Hx Hysterectomy: No Other Surgical History: fx, both legs and right knee in 2002 Anesthesia Reaction: No - PPD History Previous Implant?: Yes Documented Results: Negative w/proof Implanted On Prior [facility] Admission?: Yes Date: 12/30/16 Results: 0 mm PPD to be Administered?: Yes - Reproductive History Patient is a Female of Child Bearing Age (11 -55 yrs old): No Patient : No - Smoking Cessation Smoking history: Current every day smoker Have you smoked in the past 12 months: Yes Aproximately how many cigarettes per day: 7 Cigars Per Day: 0 Hx Chewing Tobacco Use: No Initiated information on smoking cessation: Yes 'Breaking Loose' booklet given: 04/25/17 - Substance & Tx. History Hx Alcohol Use: No Hx Substance Use: Yes Substance Use Type: Tranquilizers Hx Substance Use Treatment: Yes ([facility] 12/28/16 to 01/01/17) - Substances Abused Alprazolam (Xanax) Route: Oral Frequency: Daily Amount used: 12-16MG Age of first use: 32 Date of Last Use: 04/24/17 Cocaine Route: Smoking Frequency: 1-2 times per week Amount used: $100 Age of first use: 16 Date of Last Use: 04/23/17 Family Disease History - Family Disease History Family Disease History: Other: Brother (dsa), Sister (alcohol,dsa) Admission Physical Exam BHS - Vital Signs Vital Signs: Vital Signs - 24 hr 04/25/17 14:26 Temperature 97 F L Pulse Rate 92 H Respiratory 19 Rate Blood Pressure 126/75 - Physical General Appearance: Yes: Moderate Distress, Cachetic, Sweating, Anxious HEENTM: Yes: Normal ENT Inspection, EMILY, Pharynx Normal Respiratory: Yes: Lungs Clear, Normal Breath Sounds, No Respiratory Distress Neck: Yes: Within Normal Limits, Supple, Trachea in good position Breast: Yes: Breast Exam Deferred Cardiology: Yes: Within Normal Limits, Regular Rhythm, S1, S2 Abdominal: Yes: Normal Bowel Sounds, Non Tender, Flat, Soft Genitourinary: Yes: Within Normal Limits Back: Yes: Muscle Spasm Musculoskeletal: Yes: full range of Motion, Back pain, Muscle Pain Extremities: Yes: Within Normal Limits, Normal Range of Motion, Tremors 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: Yes: desolderer II-XII NML intact, Alert, Motor Strength 5/5 Integumentary: Yes: Dry Lymphatic: Yes: Within Normal Limits - Diagnostic (1) Sedative, hypnotic or anxiolytic dependence with withdrawal, uncomplicated Current Visit: No Status: Acute (2) Cocaine dependence Current Visit: No Status: Acute Qualifiers: Substance use status: uncomplicated Qualified Code(s): F14.20 - Cocaine dependence, uncomplicated (3) Insomnia Current Visit: No Status: Acute (4) Nicotine dependence Current Visit: No Status: Acute Qualifiers: Nicotine product type: cigarettes Substance use status: in withdrawal Qualified Code(s): F17.213 - Nicotine dependence, cigarettes, with withdrawal (5) Opioid dependence on agonist therapy Current Visit: No Status: Acute (6) Bipolar disorder Current Visit: No Status: Chronic Comment: History.On medications. (7) HIV (human immunodeficiency virus infection) Current Visit: No Status: Chronic (8) Hepatitis C Current Visit: No Status: Chronic Qualifiers: Viral hepatitis chronicity: unspecified Hepatic coma status: without hepatic coma Qualified Code(s): B19.20 - Unspecified viral hepatitis C without hepatic coma Cleared for Admission [facility] - Detox or Rehab [facility] Level of Care: Medically Managed Detox Regimen/Protocol: Valium [facility] Breath Alcohol Content Breath Alcohol Content: 0 Urine Pregancy Test - Result Urine Test Results: Negative- NO Line Present Urine Drug Screen - Results Drug Screen Negative: No Urine Drug Screen Results: YAZ-Cocaine, BZO-Benzodiazepines, MTD-Methadone
[2017-04-25] MEDS ORDERED: guaiFENesin/D-METHORPHAN HB 10 ML UNIT-DOSE CUPS PO PRN (15:29)
[2017-04-25] MEDS ORDERED: IBUPROFEN 400 MG TABLET (FP) PO PRN (15:29)
[2017-04-25] MEDS ORDERED: MAG HYDROX/AL HYDROX/SIMETH 30 ML UNIT-DOSE CUP PO PRN (15:29)
[2017-04-25] MEDS ORDERED: MAGNESIUM CITRATE 300 ML BOTTLE PO PRN (15:29)
[2017-04-25] MEDS ORDERED: P-EPHED 60MG/TRIPROLIDI 2.5MG TABLET PO PRN (15:29)
[2017-04-25] MEDS ORDERED: MENTHOL/PHENOL 1 EACH UD MM PRN (15:29)
[2017-04-25] MEDS ORDERED: ACETAMINOPHEN 325 MG TABLET (FP) PO PRN (15:29)
[2017-04-25] MEDS ORDERED: hydrOXYzine PAMOATE 25 MG CAPSULE (FP) PO PRN (15:29)
[2017-04-25] MEDS ORDERED: LOPERAMIDE HCL 2 MG CAPSULE PO PRN (15:29)
[2017-04-25] MEDS ORDERED: MAGNESIUM HYDROX 2400MG/30ML ORAL SUSPENSION 30 ML CUP PO PRN (15:29)
[2017-04-25] MEDS ORDERED: diazePAM 5 MG TABLET PO ONE (15:55)
[2017-04-25] MEDS: DARUNAVIR ETHANOLATE 600 MG TAB PO SCH (21:46)
[2017-04-25] MEDS: diazePAM 5 MG TABLET PO PRN (21:46)
[2017-04-25] MEDS: RITONAVIR 100 MG TABLET PO SCH (21:47)
[2017-04-25] MEDS: diazePAM 5 MG TABLET PO SCH (21:50)
[2017-04-25] MEDS: THIAMINE HCL 100 MG TABLET (FP) PO SCH (21:50)
[2017-04-25] MEDS: BACITRACIN 15 GM TUBE TOPICAL OINTMENT TP SCH (22:57)
[2017-04-25 23:21] LABS: URINE APPEARANCE SLCLOUDY; URINE BILIRUBIN NEGATIVE (NEGATIVE); URINE BLOOD NEGATIVE (NEGATIVE); URINE COLOR YELLOW; URINE GLUCOSE (UA) NEGATIVE (NEGATIVE); URINE KETONE NEGATIVE (NEGATIVE); URINE NITRITE POSITIVE (NEGATIVE); URINE PROTEIN NEGATIVE (NEGATIVE)
[2017-04-25 23:27] LABS: URINE LEUK ESTERASE 2+ (NEGATIVE)
[2017-04-25 23:36] LABS: EPI CELLS RARE /HPF (FEW); URINE BACTERIA RARE /hpf (NONE SEEN); URINE MUCUS RARE
[2017-04-26] MEDS: diazePAM 5 MG TABLET PO PRN ×4 (01:49→20:31)
[2017-04-26] MEDS: diazePAM 5 MG TABLET PO SCH ×3 (05:31→22:23)
[2017-04-26] MEDS: METHADONE HCL 40 MG DISPERSABLE TABLET PO SCH (08:48)
--- NOTE | 2017-04-26 09:08 | PN ---
S CIWA - CIWA Score Nausea/Vomitin-Mild Nausea/No Vomiting Muscle Tremors: 4-Moderate,w/Arms Extend Anxiety: 4-Mod. Anxious/Guarded Agitation: 4-Moderately Restless Paroxysmal Sweats: 1-Minimal Palms Moist Orientation: 0-Oriented Tacttile Disturbances: 1-Very Mild Itch/Numbness Auditory Disturbances: 0-None Visual Disturbances: 0-None Headache: 1-Very Mild CIWA-Ar Total Score: 16 BHS Progress Note (SOAP) Subjective: sweat tremor anxiety agitation Objective: 04/26/17 09:06 Vital Signs Temperature 96.6 F L 04/26/17 06:26 Pulse Rate 74 04/26/17 06:26 Respiratory Rate 18 04/26/17 06:26 Blood Pressure 120/73 04/26/17 06:26 O2 Sat by Pulse Oximetry (%) Laboratory Last Values Urine Color Yellow 04/25/17 08:20 Urine Appearance Slcloudy 04/25/17 08:20 Urine pH 6.0 (5.0-8.0) 04/25/17 08:20 Ur Specific [place] 1.014 (1.001-1.035) 04/25/17 08:20 Urine Protein Negative (NEGATIVE) 04/25/17 08:20 Urine Glucose (UA) Negative (NEGATIVE) 04/25/17 08:20 Urine Ketones Negative (NEGATIVE) 04/25/17 08:20 Urine Blood Negative (NEGATIVE) 04/25/17 08:20 Urine Nitrite Positive (NEGATIVE) 04/25/17 08:20 Urine Bilirubin Negative (NEGATIVE) 04/25/17 08:20 Urine Urobilinogen 2.0 mg/dL (0.2-1.0) H 04/25/17 08:20 Ur Leukocyte Esterase 2+ (NEGATIVE) H 04/25/17 08:20 Urine WBC (Auto) 127 /hpf (3-5) 04/25/17 08:20 Urine RBC (Auto) 2 /hpf (0-3) 04/25/17 08:20 Ur Epithelial Cells Rare /HPF (FEW) 04/25/17 08:20 Urine Bacteria Rare /hpf (NONE SEEN) 04/25/17 08:20 Urine Mucus Rare 04/25/17 08:20 lab noted Assessment: 04/26/17 09:07 withdrawal sx rule out uti Plan: continue detox repeat ua
--- NOTE | 2017-04-26 09:51 | EKG ---
Test Reason : Blood Pressure : / mmHG Vent. Rate : 077 BPM Atrial Rate : 077 BPM P-R Int : 144 ms QRS Dur : 072 ms QT Int : 370 ms P-R-T Axes : 036 002 031 degrees QTc Int : 418 ms NORMAL SINUS RHYTHM NORMAL ECG WHEN COMPARED WITH ECG OF 28-DEC-2016 22:16, CRITERIA FOR SEPTAL INFARCT ARE NO LONGER PRESENT NONSPECIFIC T WAVE ABNORMALITY NO LONGER EVIDENT IN ANTERIOR LEADS Confirmed by TALI LOO, HECTOR ([id number]) on 04/26/2017 9:51:27 AM Referred By: Confirmed By:HECTOR CESAR MD
[2017-04-26 10:22] LABS: HEMATOCRIT 38.6 % (32.4-45.2); HEMOGLOBIN 12.9 GM/dL (10.7-15.3); MCH 33.4 pg (25.7-33.7); MCHC 33.3 g/dl (32.0-36.0); MEAN CELL VOLUME 100.5 fl (80-96); MEAN PLT VOLUME 10.9 fl (7.5-11.1); PLATELET COUNT 141 K/MM3 (134-434); RBC 3.85 M/mm3 (3.60-5.2); WHITE BLOOD COUNT 5.8 K/mm3 (4.0-10.0)
[2017-04-26 10:34] LABS: ALBUMIN 3.9 g/dl (3.4-5.0); ANION GAP 8 (8-16); BLOOD UREA NITROGEN 13 mg/dL (7-18); CALCIUM 8.5 mg/dL (8.5-10.1); CHLORIDE 105 mmol/L (98-107); CO2 27 mmol/L (21-32); CREATININE 0.7 mg/dL (0.55-1.02); GLUCOSE,RANDOM 121 mg/dL (74-106); POTASSIUM 3.8 mmol/L (3.5-5.1); SGOT/AST 33 U/L (15-37); SODIUM 140 mmol/L (136-145)
[2017-04-26 10:37] LABS: ALK PHOS 99 U/L (45-117); BILIRUBIN,TOTAL 0.8 mg/dL (0.2-1.0); SGPT/ALT 32 U/L (12-78); TOT PROT 7.4 g/dl (6.4-8.2)
[2017-04-26] MEDS: PRENATAL VITAMINS W/ FOLIC ACID TABLET (FP) PO SCH (10:43)
[2017-04-26] MEDS: SULFAMETHOXAZOLE/TRIMETHOPRIM 800MG/160MG D.S. TABLET PO SCH (10:43)
[2017-04-26] MEDS: RITONAVIR 100 MG TABLET PO SCH ×2 (10:44→17:07)
[2017-04-26] MEDS: DARUNAVIR ETHANOLATE 600 MG TAB PO SCH ×2 (10:44→17:07)
[2017-04-26] MEDS: EMTRICITABINE 200MG/TENOFOVIR 300MG PO SCH (10:45)
[2017-04-26] MEDS: BACITRACIN 15 GM TUBE TOPICAL OINTMENT TP SCH ×2 (10:46→22:43)
--- NOTE | 2017-04-26 11:47 | CONSULT ---
[facility] Psychiatric Consult - Data Date of interview: 04/26/17 Admission source: [facility] Identifying data: This is 66 years old white female with histopry of Bipolar disorder, psychiatric hospitalization, suicidal history intoxicated with: Opioids, Cocaine, Xanax anmd Nicotine Substance Abuse History: - Smoking Cessation. Smoking history: Current every day smoker. Have you smoked in the past 12 months: Yes. Aproximately how many cigarettes per day: 7. Cigars Per Day: 0. Hx Chewing Tobacco Use: No. Initiated information on smoking cessation: Yes. 'Breaking Loose' booklet given : 04/25/17. - Substance & Tx. History. Hx Alcohol Use: No. Hx Substance Use: Yes. Substance Use Type: Tranquilizers. Hx Substance Use Treatment: Yes ([facility] 12/28/16 to 01/01/17). - Substances Abused. Alprazolam (Xanax). Route: Oral. Frequency: Daily. Amount used: 12-16MG. Age of first use: 32. Date of Last Use: 04/24/17. Cocaine. Route: Smoking. Frequency: 1-2 times per week. Amount used: $100. Age of first use: 16. Date of Last Use: 04/23/17 Medical History: HIV, HepC+, Psychiatric History: Patient reports to carry Bipolkar Disorder with most recent psychiatric admission on [address] [facility] after OD with medications with suicidal ideation, reports all together 9 suicidal OD in the past. Denies suicidal ideation as off today. Reports takijng prior to admission : Seroquel 300mg pop qhs. Cymbnalta 90mg poqd. Ambien 10mg po qhs prn for insomnia Physical/Sexual Abuse/Trauma History: Denies Additional Comment: Seroquel 300mg pop qhs. Cymbnalta 90mg poqd. Ambien 10mg po qhs prn for insomnia Mental Status Exam - Mental Status Exam Alert and Oriented to: Person Cognitive Function: Fair Patient Appearance: Unkempt Mood: Anxious Affect: Labile Patient Behavior: Guarded, Impulsive, Talkative Speech Pattern: Excessive Voice Loudness: Mildly Loud Thought Process: Circumstantial, Goal Oriented Thought Disorder: Being Controlled Hallucinations: Denies Suicidal Ideation: Denies Homicidal Ideation: Denies Insight/Judgement: Fair Sleep: Difficulty falling asleep Appetite: Weight loss Muscle strength/Tone: Normal Gait/Station: Normal Additional Comments: Seroquel 300mg pop qhs. Cymbnalta 90mg poqd. Ambien 10mg po qhs prn for insomnia Psychiatric Findings - Problem List ([place] 1, 2,3) (1) Weight loss Current Visit: Yes Status: Acute (2) Cocaine dependence Current Visit: No Status: Acute Qualifiers: Substance use status: uncomplicated Qualified Code(s): F14.20 - Cocaine dependence, uncomplicated (3) Nicotine dependence Current Visit: No Status: Acute Qualifiers: Nicotine product type: cigarettes Substance use status: in withdrawal Qualified Code(s): F17.213 - Nicotine dependence, cigarettes, with withdrawal (4) Opioid dependence on agonist therapy Current Visit: No Status: Acute (5) Sedative, hypnotic or anxiolytic dependence with withdrawal, uncomplicated Current Visit: No Status: Acute (6) Bipolar II disorder Current Visit: No Status: Chronic (7) Bipolar disorder Current Visit: No Status: Chronic Comment: History.On medications. (8) Methadone maintenance therapy patient Current Visit: No Status: Chronic - Initial Treatment Plan Initial Treatment Plan: Seroquel 300mg pop qhs. Cymbnalta 90mg poqd. Ambien 10mg po qhs prn for insomnia
[2017-04-26] MEDS: DULoxetine HCL 30 MG CAPSULE.DR (FP) PO SCH (13:00)
[2017-04-26] MEDS: NICOTINE POLACRILEX 2 MG GUM BUC PRN (15:28)
[2017-04-26] MEDS: ZOLPIDEM TARTRATE 10 MG TABLET (PARK CARE ONLY) PO PRN (22:23)
[2017-04-26] MEDS: QUEtiapine FUMARATE 300 MG TABLET PO SCH (22:24)
[2017-04-26] MEDS: THIAMINE HCL 100 MG TABLET (FP) PO SCH (22:24)
[2017-04-27] MEDS: METHADONE HCL 40 MG DISPERSABLE TABLET PO SCH (05:38)
[2017-04-27] MEDS: diazePAM 5 MG TABLET PO PRN ×4 (07:03→21:12)
[2017-04-27] MEDS: DARUNAVIR ETHANOLATE 600 MG TAB PO SCH ×2 (09:49→17:03)
[2017-04-27] MEDS: RITONAVIR 100 MG TABLET PO SCH ×2 (09:49→17:04)
[2017-04-27] MEDS: PRENATAL VITAMINS W/ FOLIC ACID TABLET (FP) PO SCH (10:50)
[2017-04-27] MEDS: DULoxetine HCL 30 MG CAPSULE.DR (FP) PO SCH (10:50)
[2017-04-27] MEDS: SULFAMETHOXAZOLE/TRIMETHOPRIM 800MG/160MG D.S. TABLET PO SCH (10:50)
[2017-04-27] MEDS: diazePAM 5 MG TABLET PO SCH ×2 (10:50→22:37)
[2017-04-27] MEDS: BACITRACIN 15 GM TUBE TOPICAL OINTMENT TP SCH ×2 (10:50→22:34)
[2017-04-27] MEDS: EMTRICITABINE 200MG/TENOFOVIR 300MG PO SCH (10:51)
[2017-04-27] MEDS: NICOTINE POLACRILEX 2 MG GUM BUC PRN (11:06)
--- NOTE | 2017-04-27 11:09 | PN ---
S CIWA - CIWA Score Nausea/Vomitin-No Nausea/No Vomiting Muscle Tremors: 4-Moderate,w/Arms Extend Anxiety: 3 Agitation: 3 Paroxysmal Sweats: 1-Minimal Palms Moist Orientation: 0-Oriented Tacttile Disturbances: 0-None Auditory Disturbances: 0-None Visual Disturbances: 0-None Headache: 1-Very Mild CIWA-Ar Total Score: 12 BHS Progress Note (SOAP) Subjective: sweat tremor anxiety mild headaches and irritability Objective: 04/27/17 11:06 Vital Signs Temperature 97.7 F 04/27/17 10:26 Pulse Rate 80 04/27/17 10:26 Respiratory Rate 18 04/27/17 10:26 Blood Pressure 103/55 04/27/17 10:26 O2 Sat by Pulse Oximetry (%) Laboratory Last Values WBC 5.8 K/mm3 (4.0-10.0) D 04/26/17 06:00 RBC 3.85 M/mm3 (3.60-5.2) 04/26/17 06:00 Hgb 12.9 GM/dL (10.7-15.3) 04/26/17 06:00 Hct 38.6 % (32.4-45.2) 04/26/17 06:00 MCV 100.5 fl (80-96) H 04/26/17 06:00 MCH 33.4 pg (25.7-33.7) 04/26/17 06:00 MCHC 33.3 g/dl (32.0-36.0) 04/26/17 06:00 RDW 14.0 % (11.6-15.6) 04/26/17 06:00 Plt Count 141 K/MM3 (134-434) 04/26/17 06:00 MPV 10.9 fl (7.5-11.1) 04/26/17 06:00 Sodium 140 mmol/L (136-145) 04/26/17 06:00 Potassium 3.8 mmol/L (3.5-5.1) 04/26/17 06:00 Chloride 105 mmol/L (98-107) 04/26/17 06:00 Carbon Dioxide 27 mmol/L (21-32) 04/26/17 06:00 Anion Gap 8 (8-16) 04/26/17 06:00 BUN 13 mg/dL (7-18) 04/26/17 06:00 Creatinine 0.7 mg/dL (0.55-1.02) 04/26/17 06:00 Creat Clearance w eGFR > 60 (>60) 04/26/17 06:00 Random Glucose 121 mg/dL (74-106) H 04/26/17 06:00 Calcium 8.5 mg/dL (8.5-10.1) 04/26/17 06:00 Total Bilirubin 0.8 mg/dL (0.2-1.0) 04/26/17 06:00 AST 33 U/L (15-37) 04/26/17 06:00 ALT 32 U/L (12-78) 04/26/17 06:00 Alkaline Phosphatase 99 U/L (45-117) 04/26/17 06:00 Total Protein 7.4 g/dl (6.4-8.2) 04/26/17 06:00 Albumin 3.9 g/dl (3.4-5.0) 04/26/17 06:00 Urine Color Yellow 04/25/17 08:20 Urine Appearance Slcloudy 04/25/17 08:20 Urine pH 6.0 (5.0-8.0) 04/25/17 08:20 Ur Specific [place] 1.014 (1.001-1.035) 04/25/17 08:20 Urine Protein Negative (NEGATIVE) 04/25/17 08:20 Urine Glucose (UA) Negative (NEGATIVE) 04/25/17 08:20 Urine Ketones Negative (NEGATIVE) 04/25/17 08:20 Urine Blood Negative (NEGATIVE) 04/25/17 08:20 Urine Nitrite Positive (NEGATIVE) 04/25/17 08:20 Urine Bilirubin Negative (NEGATIVE) 04/25/17 08:20 Urine Urobilinogen 2.0 mg/dL (0.2-1.0) H 04/25/17 08:20 Ur Leukocyte Esterase 2+ (NEGATIVE) H 04/25/17 08:20 Urine WBC (Auto) 127 /hpf (3-5) 04/25/17 08:20 Urine RBC (Auto) 2 /hpf (0-3) 04/25/17 08:20 Ur Epithelial Cells Rare /HPF (FEW) 04/25/17 08:20 Urine Bacteria Rare /hpf (NONE SEEN) 04/25/17 08:20 Urine Mucus Rare 04/25/17 08:20 RPR Titer Nonreactive (NONREACTIVE) 04/26/17 06:00 lab noted Assessment: 04/27/17 11:08 withdrawal sx Plan: continue detox
[2017-04-27] MEDS: ZOLPIDEM TARTRATE 10 MG TABLET (PARK CARE ONLY) PO PRN (22:35)
[2017-04-27] MEDS: THIAMINE HCL 100 MG TABLET (FP) PO SCH (22:35)
[2017-04-27] MEDS: QUEtiapine FUMARATE 300 MG TABLET PO SCH (22:35)
[2017-04-28] MEDS: METHADONE HCL 40 MG DISPERSABLE TABLET PO SCH (06:10)
[2017-04-28] MEDS: diazePAM 5 MG TABLET PO PRN ×3 (06:58→14:43)
[2017-04-28] MEDS: RITONAVIR 100 MG TABLET PO SCH ×2 (07:00→16:45)
[2017-04-28] MEDS: DARUNAVIR ETHANOLATE 600 MG TAB PO SCH ×2 (07:01→16:45)
[2017-04-28 10:27] LABS: URINE APPEARANCE SLCLOUDY; URINE BILIRUBIN NEGATIVE (NEGATIVE); URINE BLOOD NEGATIVE (NEGATIVE); URINE COLOR YELLOW; URINE GLUCOSE (UA) NEGATIVE (NEGATIVE); URINE KETONE NEGATIVE (NEGATIVE); URINE NITRITE NEGATIVE (NEGATIVE); URINE PROTEIN NEGATIVE (NEGATIVE)
[2017-04-28] MEDS: BACITRACIN 15 GM TUBE TOPICAL OINTMENT TP SCH (10:41)
[2017-04-28] MEDS: SULFAMETHOXAZOLE/TRIMETHOPRIM 800MG/160MG D.S. TABLET PO SCH (10:41)
[2017-04-28] MEDS: PRENATAL VITAMINS W/ FOLIC ACID TABLET (FP) PO SCH (10:42)
[2017-04-28] MEDS: DULoxetine HCL 30 MG CAPSULE.DR (FP) PO SCH (10:42)
[2017-04-28] MEDS: EMTRICITABINE 200MG/TENOFOVIR 300MG PO SCH (10:42)
[2017-04-28] MEDS: diazePAM 5 MG TABLET PO SCH (10:42)
[2017-04-28 10:46] LABS: URINE LEUK ESTERASE 1+ (NEGATIVE)
[2017-04-28 11:36] LABS: CALCIUM OXALATE CRYSTALS MODERATE /hpf (NONE SEEN); EPI CELLS RARE /HPF (FEW); URINE MUCUS RARE
--- NOTE | 2017-04-28 11:57 | PN ---
Psychiatric Progress Note Vital Signs: Vital Signs Period Temp Pulse Resp BP Sys/[place] Pulse Ox Last 24 Hr 96.6 F-98.8 F 72-83 18-20 94-111/52-78 Date of Session: 04/28/17 Chief Complaint:: BHS HPI: Pt. admitted to for cocaine and benzodiazepine dependence. ROS: Unremarkable. Current Medications: Active Medications Generic Name Dose Route Start Last Admin Trade Name Freq PRN Reason Stop Dose Admin Acetaminophen 650 mg 04/25/17 15:29 04/26/17 18:57 Tylenol - PO 650 mg Q4H PRN Administration FEVER Al Hydroxide/Mg Hydroxide 30 ml 04/25/17 15:29 Mylanta Oral Suspension - PO Q6H PRN DYSPEPSIA Bacitracin 1 applic 04/25/17 22:00 04/28/17 10:41 Bacitracin - TP 1 applic BID ERICH Administration Darunavir 600 mg 04/26/17 17:30 04/28/17 07:01 Prezista - PO 600 mg BIDWM ERICH Administration Diazepam 10 mg 04/25/17 15:29 04/28/17 10:41 Valium - PO 04/28/17 15:28 10 mg Q4H PRN Administration WITHDRAWAL(CONT SUBST) Diazepam 5 mg 04/27/17 10:00 04/28/17 10:42 Valium - PO 04/28/17 22:01 Not Given BID ERICH Diazepam 5 mg 04/29/17 10:00 Valium - PO 04/29/17 10:01 DAILY ERICH Duloxetine HCl 90 mg 04/26/17 12:00 04/28/17 10:42 Cymbalta - PO 90 mg DAILY ERICH Administration Emtricitabine/Tenofovir 1 tab 04/26/17 10:00 04/28/17 10:42 Truvada PO 1 tab DAILY ERICH Administration Eucalyptus/Menthol/Phenol/Sorbitol 1 each 04/25/17 15:29 Cepastat Lozenge - MM Q4H PRN SORE THROAT Guaifenesin 10 ml 04/25/17 15:29 Robitussin Dm - PO Q6H PRN COUGH Hydroxyzine Pamoate 25 mg 04/25/17 15:29 Vistaril - PO Q4H PRN AGITATION Ibuprofen 400 mg 04/25/17 15:29 Motrin - PO Q6H PRN PAIN LEVEL 4-6 Loperamide HCl 4 mg 04/25/17 15:29 Imodium - PO Q6H PRN DIARRHEA Magnesium Citrate 300 ml 04/25/17 15:29 Citroma - PO Q48H PRN CONSTIPATION Magnesium Hydroxide 30 ml 04/25/17 15:29 Milk Of Magnesia - PO DAILY PRN CONSTIPATION Methadone HCl 80 mg 04/26/17 08:30 04/28/17 06:10 Dolophine - PO 05/03/17 08:29 80 mg DAILY@0600 ERICH Administration Nicotine Polacrilex 2 mg 04/25/17 15:29 04/27/17 11:06 Nicorette Gum - BUC 2 mg Q2H PRN Administration NICOTINE REPLACEMENT RX Multivit/Folic Acid/Iron 1 tab 04/26/17 10:00 04/28/17 10:42 Vitamins (Sjr) - PO 1 tab DAILY ERICH Administration Pseudoephedrine/Triprolidine 1 combo 04/25/17 15:29 Actifed - PO TID PRN NASAL CONGESTION Quetiapine Fumarate 300 mg 04/26/17 22:00 04/27/17 22:35 Seroquel - PO 300 mg HS ERICH Administration Ritonavir 100 mg 04/26/17 17:30 04/28/17 07:00 Norvir - PO 100 mg BIDWM ERICH Administration Thiamine HCl 100 mg 04/25/17 22:00 04/27/17 22:35 Vitamin B1 - PO 100 mg HS ERICH Administration Trimethoprim/Sulfamethoxazole 1 each 04/26/17 10:00 04/28/17 10:41 Bactrim Ds - PO 05/25/17 10:01 1 each DAILY ERICH Administration Zolpidem Tartrate 10 mg 04/26/17 22:00 04/27/17 22:35 Ambien - PO 05/01/17 21:59 10 mg HS PRN Administration INSOMNIA Medication(s) Change(s): Yes. Current dosage of seroquel 300mg qhs to be decreased to 150mg qhs. Current Side Effect: No Lab tests ordered: No Lab tests reviewed: Yes Provider note:: Psychiatric Nurse Practitioner met with patient for psychiatric reconsultation. Pt. reported oversedation this morning and is requesting seroquel 300mg to be lowered to 150mg. Pt. is also taking ambien 10mg qhs. Industrial Twisting Machine Operator suggested lowering or discontinuing the ambien as opposed to cutting the seroquel dose in half. Pt. refused, and preferred ambien to remain at 10mg and seroquel dose to be lowered to 150mg. Psychopharmacotherapy and psychoeducation provided. Seroquel 150mg ordered and ambien to remain at 10mg qhs. Verbal consent given. Will continue to monitor. Total face to face time:: 25 Mental Status Exam - Mental Status Exam Alert and Oriented to: Time, Place, Person Cognitive Function: Good Patient Appearance: Unkempt Mood: Euthymic Affect: Appropriate Patient Behavior: Cooperative Speech Pattern: Clear, Appropriate Voice Loudness: Normal Thought Process: Goal Oriented Thought Disorder: Not Present Hallucinations: Denies Suicidal Ideation: Denies Homicidal Ideation: Denies Insight/Judgement: Poor Sleep: Well Appetite: Fair Muscle strength/Tone: Normal Gait/Station: Normal Psychiatric Treatment Plan - Problem List (1) Cocaine dependence Qualifiers: Substance use status: uncomplicated Qualified Code(s): F14.20 - Cocaine dependence, uncomplicated (4) Bipolar disorder Comment: History.On medications.
--- NOTE | 2017-04-28 11:57 | PN ---
BHS Progress Note (SOAP) Subjective: sweats sleepy body aches Objective: 04/28/17 11:55 Vital Signs Temperature 97.1 F L 04/28/17 11:53 Pulse Rate 80 04/28/17 11:53 Respiratory Rate 18 04/28/17 11:53 Blood Pressure 99/57 04/28/17 11:53 O2 Sat by Pulse Oximetry (%) aaox3 ambulating no acute distress sleepy Assessment: 04/28/17 11:55 mild withdrawal sx Plan: continue detox psych ordered for re-evaluate for seroquel
[2017-04-28 13:35] VITALS: BP 115/87; PULSE 89; TEMP 97.7
[2017-04-28] MEDS ORDERED: QUEtiapine FUMARATE 50 MG TABLET PO SCH (22:00)
[2017-04-29] MEDS ORDERED: diazePAM 5 MG TABLET PO SCH (10:00)
== END 2017-04-28 18:12 | disposition other institution (70) | DRG 773 ==
LOC: YASAS 13:06 → Y6N 15:53
PROVIDERS: ADMIT Internal Medicine; ATTEND Internal Medicine
PROC: HZ2ZZZZ Detoxification Services for Substance Abuse Treatment (ICD-10-PCS; principal; 2017-04-25)
DX: F13.230 Sedative, hypnotic or anxiolytic dependence with withdrawal, uncomplicated (principal); F11.20 Opioid dependence, uncomplicated; F14.20 Cocaine dependence, uncomplicated; F17.213 Nicotine dependence, cigarettes, with withdrawal; F31.81 Bipolar II disorder; G47.00 Insomnia, unspecified; Z21 Asymptomatic human immunodeficiency virus [HIV] infection status; B18.2 Chronic viral hepatitis C; Z86.69 Personal history of other diseases of the nervous system and sense organs; Z91.018 Allergy to other foods; Z87.898 Personal history of other specified conditions; Z91.5 Personal history of self-harm
CPT/HCPCS: 36415; 80053; 81003; 81015; 85027; 86593; 93005; 93010

== ENCOUNTER 2017-04-27 18:06 | Inpatient (IN) | payer OTHER ==
[2017-04-28] MEDS ORDERED: MAG HYDROX/AL HYDROX/SIMETH 30 ML UNIT-DOSE CUP PO PRN (20:21)
[2017-04-28] MEDS ORDERED: MENTHOL/PHENOL 1 EACH UD MM PRN (20:21)
[2017-04-28] MEDS ORDERED: LOPERAMIDE HCL 2 MG CAPSULE PO PRN (20:21)
[2017-04-28] MEDS ORDERED: hydrOXYzine PAMOATE 50 MG CAPSULE (FP) PO PRN (20:21)
[2017-04-28] MEDS ORDERED: MAGNESIUM HYDROX 2400MG/30ML ORAL SUSPENSION 30 ML CUP PO PRN (20:21)
[2017-04-28] MEDS ORDERED: MAGNESIUM CITRATE 300 ML BOTTLE PO PRN (20:21)
[2017-04-28] MEDS ORDERED: P-EPHED 60MG/TRIPROLIDI 2.5MG TABLET PO PRN (20:21)
[2017-04-28] MEDS ORDERED: guaiFENesin/D-METHORPHAN HB 10 ML UNIT-DOSE CUPS PO PRN (20:21)
--- NOTE | 2017-04-28 20:23 | HP ---
[facility] LOO Rehab Assess/Revision - Admission History Admitted to Rehab from: [facility] [address] [facility] Date of Admission to Rehab: 04/28/17 - Findings Detox History & Physical reviewed: Yes Concur with findings: Yes Comments/Additional Findings: ADMIT TO REHAB Inpatient Rehab Admission - Initial Determination Are CD services needed?: Yes Free of communicable disease: No Not in need of hospitalization: Yes - Rehab Admission Criteria Previous failed treatment: Yes Poor recovery environment: Yes Comorbidities: Yes Lacks judgement: Yes Patient is meeting Inpatient Rehab admission criteria:: Yes
--- NOTE | 2017-04-28 21:56 | PN ---
[facility] Progress Note Note: Psychiatry Attending's on-call note : Called to enter medications orders. New admission from [address] [place] [address]. Ms Olivarez is already known to me. History of multiple admissions to [facility]. Known for non-adherence to medications/OPD care. Chronically unreliable. Chart reviewed. Dr Groves + ANGELA Berry's notes : read. Noted modification of regimen (oversedation). Plan : Seroquel 100 mg po hs Titration to follow if no oversedation in 24 hrs. Duloxetine 40 mg po daily (reduced) Titration over next 3-5 days if well tolerated. Pharmacy claims surveyed : not informative. Unit psychiatrist will follow.
[2017-04-28] MEDS ORDERED: QUEtiapine FUMARATE 100 MG TABLET (FP) PO SCH (22:00)
[2017-04-28] MEDS: RITONAVIR 100 MG TABLET PO SCH (22:07)
[2017-04-28] MEDS: DARUNAVIR ETHANOLATE 600 MG TAB PO SCH (22:07)
[2017-04-28] MEDS: THIAMINE HCL 100 MG TABLET (FP) PO SCH (22:07)
[2017-04-29] MEDS: METHADONE HCL 40 MG DISPERSABLE TABLET PO SCH (07:18)
[2017-04-29] MEDS ORDERED: DULoxetine HCL 20 MG CAPSULE.DR (FP) PO SCH (10:00)
[2017-04-29] MEDS: RITONAVIR 100 MG TABLET PO SCH ×2 (10:09→21:47)
[2017-04-29] MEDS: DARUNAVIR ETHANOLATE 600 MG TAB PO SCH ×2 (10:09→21:47)
[2017-04-29] MEDS: EMTRICITABINE 200MG/TENOFOVIR 300MG PO SCH (10:09)
[2017-04-29] MEDS: PRENATAL VITAMINS W/ FOLIC ACID TABLET (FP) PO SCH (10:10)
--- NOTE | 2017-04-29 20:02 | PN ---
DA[facility] Progress Note Note: Psychiatry Attending on-call's note : Met with patient to discuss medications. History taken.Ms Olivarez is well-related. Sees a primary care physician in [facility]. Prescribed cymbalta 90 mg/day + seroquel 300 mg/hs. Currently patient is ambulatory.Gait steady.Clear sensorium. Patient agrees with plan for gradual titration of medications. As follows : seroquel 150 mg po hs Duloxetine 60 mg po daily Side effects/benefits discussed with patient. Orders entered.
[2017-04-29] MEDS: THIAMINE HCL 100 MG TABLET (FP) PO SCH (21:47)
[2017-04-29] MEDS: QUEtiapine FUMARATE 50 MG TABLET PO SCH (21:50)
[2017-04-29] MEDS ORDERED: QUEtiapine FUMARATE 100 MG TABLET (FP) PO SCH (22:00)
[2017-04-30] MEDS: METHADONE HCL 40 MG DISPERSABLE TABLET PO SCH (06:31)
[2017-04-30] MEDS: DARUNAVIR ETHANOLATE 600 MG TAB PO SCH ×2 (09:52→21:34)
[2017-04-30] MEDS: EMTRICITABINE 200MG/TENOFOVIR 300MG PO SCH (09:53)
[2017-04-30] MEDS: DULoxetine HCL 60 MG CAPSULE.DR PO SCH (09:53)
[2017-04-30] MEDS: RITONAVIR 100 MG TABLET PO SCH ×2 (09:53→21:34)
[2017-04-30] MEDS: PRENATAL VITAMINS W/ FOLIC ACID TABLET (FP) PO SCH (09:53)
[2017-04-30] MEDS: THIAMINE HCL 100 MG TABLET (FP) PO SCH (21:34)
[2017-04-30] MEDS: QUEtiapine FUMARATE 50 MG TABLET PO SCH (21:34)
[2017-05-01] MEDS: METHADONE HCL 40 MG DISPERSABLE TABLET PO SCH (06:32)
[2017-05-01] MEDS ORDERED: PT OWN MED DRAWER 7, Y5N ONE ×3 (09:02→21:09)
[2017-05-01] MEDS: RITONAVIR 100 MG TABLET PO SCH ×2 (10:37→21:58)
[2017-05-01] MEDS: PRENATAL VITAMINS W/ FOLIC ACID TABLET (FP) PO SCH (10:37)
[2017-05-01] MEDS: DARUNAVIR ETHANOLATE 600 MG TAB PO SCH ×2 (10:37→21:57)
[2017-05-01] MEDS: DULoxetine HCL 60 MG CAPSULE.DR PO SCH (10:37)
[2017-05-01] MEDS: EMTRICITABINE 200MG/TENOFOVIR 300MG PO SCH (10:38)
[2017-05-01] MEDS: IBUPROFEN 400 MG TABLET (FP) PO PRN (10:39)
--- NOTE | 2017-05-01 11:12 | HP ---
Psychiatrist Admission - Data Date of interview: 05/01/17 Admission source: [address] [place] [address] Identifying data: This is the first admission to [address] [place] [address] for this 66 years old single,mother of 40 yo daughter,resides in [facility],on [facility]. Medical History: HIV+ dx in 2000,hep C,H/O Uday Isauro syndrome . Psychiatric History: Long and extensive psychiatric history started back in her 20 s.Patient was dx with Bipolar disorder,she was on different mood stabilizers,antidepressants.patient reports multiple psychiatric admissions ( more than 10 at least).She is known to [facility].patient reports a few suicidal attempts in the past including DOD, cuttings,jumping onto the train track.Patient is under care at [facility] in [facility].Current medications:Cymbalta 60 mg po daily and Seroquel 200 mg po hs.Patient is also attending [facility] at [facility](80 mg po daily). Physical/Sexual Abuse/Trauma History: denies history of abuse. Vital Signs: Vital Signs - 24 hr 05/01/17 05/01/17 00:30 07:37 Temperature 97.7 F Pulse Rate 88 Respiratory 18 18 Rate Blood Pressure 101/69 Allergies/Adverse Reactions: Allergies Allergy/AdvReac Type Severity Reaction Status Date / Time lamotrigine [From Lamictal] Allergy Severe Rash Verified 04/25/17 14:47 Date of last physical exam: 04/25/17 Concur with the findings of this exam: Yes - Substance Abuse/Tx History Hx Alcohol Use: No Hx Substance Use: Yes (crack since 32 yo,$30=40 daily,Klononin up to 10 mg po daily) Substance Use Type: Cocaine, Opiates Hx Substance Use Treatment: No (never completed inpatient rehab,this is her first treatment) Mental Status Exam - Mental Status Exam Alert and Oriented to: Time, Place, Person Cognitive Function: Grossly Intact Patient Appearance: Unkempt Mood: Sad, Anxious Affect: Labile Patient Behavior: Cooperative Speech Pattern: Clear Voice Loudness: Normal Thought Process: Goal Oriented Thought Disorder: Not Present Hallucinations: Denies Suicidal Ideation: Denies Homicidal Ideation: Denies Insight/Judgement: Fair Sleep: Fair Appetite: Fair Muscle strength/Tone: Normal Gait/Station: Normal Psychiatric Findings - Problem List ([place] 1, 2,3) (1) Cocaine dependence Current Visit: Yes Status: Chronic Qualifiers: (2) Laceration of chin Current Visit: Yes Status: Chronic (3) Nicotine dependence Current Visit: Yes Status: Chronic Qualifiers: (4) Opioid dependence on agonist therapy Current Visit: Yes Status: Chronic (5) Sedative, hypnotic or anxiolytic dependence with withdrawal, uncomplicated Current Visit: Yes Status: Chronic (6) Bipolar 1 disorder Current Visit: Yes Status: Acute (7) HIV (human immunodeficiency virus infection) Current Visit: Yes Status: Chronic (8) Hepatitis C Current Visit: Yes Status: Chronic Qualifiers: Viral hepatitis chronicity: unspecified Hepatic coma status: without hepatic coma Qualified Code(s): B19.20 - Unspecified viral hepatitis C without hepatic coma (9) Methadone maintenance therapy patient Current Visit: Yes Status: Chronic - Initial Treatment Plan Initial Treatment Plan: Continue current medications:Cymbalta 60 mg po daily and Seroquel 200 mg po hs. Will monitor progress.
[2017-05-01] MEDS: AMITRIPTYLINE HCL 25 MG TABLET (FP) PO PRN (12:42)
--- NOTE | 2017-05-01 13:11 | PN ---
[facility] Progress Note (SOAP) Subjective: Suture on the chin need removal. Reports suture were placed at [facility] about a week and a half ago, reports no follow up instruction were given Objective: 05/01/17 13:07 Patient denies pain, numbness or itchiness. Assessment: 05/01/17 13:08 Patient Aox 3 ambulating No acute distress mild erythema on the chin by suture site present, no tenderness or signs and symptoms of infection Plan: Bacitracin topical PRN Suture removal 05/02/17
[2017-05-01] MEDS: BACITRACIN 0.9 GM PACKET TP SCH (16:07)
[2017-05-01] MEDS: QUEtiapine FUMARATE 200 MG TABLET PO SCH (21:57)
[2017-05-01] MEDS: THIAMINE HCL 100 MG TABLET (FP) PO SCH (21:57)
[2017-05-02] MEDS: METHADONE HCL 40 MG DISPERSABLE TABLET PO SCH (06:18)
[2017-05-02] MEDS: AMITRIPTYLINE HCL 25 MG TABLET (FP) PO PRN (07:13)
[2017-05-02] MEDS ORDERED: PT OWN MED DRAWER 7, Y5N ONE ×2 (08:59→20:06)
[2017-05-02] MEDS: RITONAVIR 100 MG TABLET PO SCH ×2 (10:21→22:11)
[2017-05-02] MEDS: BACITRACIN 0.9 GM PACKET TP SCH (10:22)
[2017-05-02] MEDS: DARUNAVIR ETHANOLATE 600 MG TAB PO SCH ×2 (10:22→22:07)
[2017-05-02] MEDS: DULoxetine HCL 60 MG CAPSULE.DR PO SCH (10:22)
[2017-05-02] MEDS: EMTRICITABINE 200MG/TENOFOVIR 300MG PO SCH (10:22)
[2017-05-02] MEDS: PRENATAL VITAMINS W/ FOLIC ACID TABLET (FP) PO SCH (10:22)
[2017-05-02] MEDS ORDERED: SULFAMETHOXAZOLE/TRIMETHOPRIM 800MG/160MG D.S. TABLET PO SCH (15:30)
[2017-05-02] MEDS: THIAMINE HCL 100 MG TABLET (FP) PO SCH (22:07)
[2017-05-02] MEDS: QUEtiapine FUMARATE 200 MG TABLET PO SCH (22:07)
[2017-05-03] MEDS: METHADONE HCL 40 MG DISPERSABLE TABLET PO SCH (06:32)
[2017-05-03] MEDS ORDERED: PT OWN MED DRAWER 7, Y5N ONE ×2 (08:22→22:35)
[2017-05-03] MEDS: AMITRIPTYLINE HCL 25 MG TABLET (FP) PO PRN (08:55)
[2017-05-03] MEDS: BACITRACIN 0.9 GM PACKET TP SCH (10:39)
[2017-05-03] MEDS: PRENATAL VITAMINS W/ FOLIC ACID TABLET (FP) PO SCH (10:39)
[2017-05-03] MEDS: DARUNAVIR ETHANOLATE 600 MG TAB PO SCH ×2 (10:39→21:57)
[2017-05-03] MEDS: EMTRICITABINE 200MG/TENOFOVIR 300MG PO SCH (10:39)
[2017-05-03] MEDS: DULoxetine HCL 60 MG CAPSULE.DR PO SCH (10:39)
[2017-05-03] MEDS: SULFAMETHOXAZOLE/TRIMETHOPRIM 800MG/160MG D.S. TABLET PO SCH (10:39)
[2017-05-03] MEDS: RITONAVIR 100 MG TABLET PO SCH ×2 (10:40→21:57)
--- NOTE | 2017-05-03 12:11 | PN ---
S Progress Note Note: sutures 5 stitches removed,wound healed well,bacitracin ointment daily
[2017-05-03] MEDS: QUEtiapine FUMARATE 200 MG TABLET PO SCH (21:57)
[2017-05-03] MEDS: THIAMINE HCL 100 MG TABLET (FP) PO SCH (21:57)
[2017-05-04] MEDS: METHADONE HCL 40 MG DISPERSABLE TABLET PO SCH (06:36)
[2017-05-04] MEDS ORDERED: PT OWN MED DRAWER 7, Y5N ONE ×2 (08:58→09:00)
[2017-05-04] MEDS: BACITRACIN 0.9 GM PACKET TP SCH (10:35)
[2017-05-04] MEDS: DULoxetine HCL 60 MG CAPSULE.DR PO SCH (10:36)
[2017-05-04] MEDS: EMTRICITABINE 200MG/TENOFOVIR 300MG PO SCH (10:36)
[2017-05-04] MEDS: SULFAMETHOXAZOLE/TRIMETHOPRIM 800MG/160MG D.S. TABLET PO SCH (10:36)
[2017-05-04] MEDS: PRENATAL VITAMINS W/ FOLIC ACID TABLET (FP) PO SCH (10:37)
[2017-05-04] MEDS: DARUNAVIR ETHANOLATE 600 MG TAB PO SCH ×2 (10:37→21:50)
[2017-05-04] MEDS: RITONAVIR 100 MG TABLET PO SCH ×2 (10:37→21:51)
[2017-05-04] MEDS: AMITRIPTYLINE HCL 25 MG TABLET (FP) PO PRN (17:36)
[2017-05-04] MEDS: QUEtiapine FUMARATE 200 MG TABLET PO SCH (21:50)
[2017-05-04] MEDS: THIAMINE HCL 100 MG TABLET (FP) PO SCH (21:50)
[2017-05-05] MEDS: METHADONE HCL 40 MG DISPERSABLE TABLET PO SCH (06:21)
[2017-05-05] MEDS ORDERED: PT OWN MED DRAWER 7, Y5N ONE ×2 (07:41→19:52)
[2017-05-05] MEDS: DARUNAVIR ETHANOLATE 600 MG TAB PO SCH ×2 (10:53→22:13)
[2017-05-05] MEDS: EMTRICITABINE 200MG/TENOFOVIR 300MG PO SCH (10:53)
[2017-05-05] MEDS: BACITRACIN 0.9 GM PACKET TP SCH (10:53)
[2017-05-05] MEDS: SULFAMETHOXAZOLE/TRIMETHOPRIM 800MG/160MG D.S. TABLET PO SCH (10:53)
[2017-05-05] MEDS: PRENATAL VITAMINS W/ FOLIC ACID TABLET (FP) PO SCH (10:54)
[2017-05-05] MEDS: DULoxetine HCL 60 MG CAPSULE.DR PO SCH (10:54)
[2017-05-05] MEDS: RITONAVIR 100 MG TABLET PO SCH ×2 (10:55→22:14)
[2017-05-05] MEDS: AMITRIPTYLINE HCL 25 MG TABLET (FP) PO PRN (19:58)
[2017-05-05] MEDS: QUEtiapine FUMARATE 200 MG TABLET PO SCH (22:13)
[2017-05-05] MEDS: THIAMINE HCL 100 MG TABLET (FP) PO SCH (22:13)
[2017-05-06] MEDS: METHADONE HCL 40 MG DISPERSABLE TABLET PO SCH (06:15)
[2017-05-06] MEDS: BACITRACIN 0.9 GM PACKET TP SCH (10:27)
[2017-05-06] MEDS: EMTRICITABINE 200MG/TENOFOVIR 300MG PO SCH (10:28)
[2017-05-06] MEDS: RITONAVIR 100 MG TABLET PO SCH ×2 (10:28→22:06)
[2017-05-06] MEDS: SULFAMETHOXAZOLE/TRIMETHOPRIM 800MG/160MG D.S. TABLET PO SCH (10:29)
[2017-05-06] MEDS: PRENATAL VITAMINS W/ FOLIC ACID TABLET (FP) PO SCH (10:29)
[2017-05-06] MEDS: DARUNAVIR ETHANOLATE 600 MG TAB PO SCH ×2 (10:29→22:06)
[2017-05-06] MEDS: DULoxetine HCL 60 MG CAPSULE.DR PO SCH (10:30)
[2017-05-06] MEDS: QUEtiapine FUMARATE 200 MG TABLET PO SCH (22:05)
[2017-05-06] MEDS: THIAMINE HCL 100 MG TABLET (FP) PO SCH (22:05)
[2017-05-07] MEDS: METHADONE HCL 40 MG DISPERSABLE TABLET PO SCH (06:12)
[2017-05-07] MEDS ORDERED: PT OWN MED DRAWER 7, Y5N ONE ×2 (08:47→19:55)
[2017-05-07] MEDS: EMTRICITABINE 200MG/TENOFOVIR 300MG PO SCH (10:33)
[2017-05-07] MEDS: PRENATAL VITAMINS W/ FOLIC ACID TABLET (FP) PO SCH (10:33)
[2017-05-07] MEDS: BACITRACIN 0.9 GM PACKET TP SCH (10:33)
[2017-05-07] MEDS: RITONAVIR 100 MG TABLET PO SCH ×2 (10:33→22:01)
[2017-05-07] MEDS: SULFAMETHOXAZOLE/TRIMETHOPRIM 800MG/160MG D.S. TABLET PO SCH (10:33)
[2017-05-07] MEDS: DULoxetine HCL 60 MG CAPSULE.DR PO SCH (10:33)
[2017-05-07] MEDS: DARUNAVIR ETHANOLATE 600 MG TAB PO SCH ×2 (10:34→22:01)
[2017-05-07] MEDS ORDERED: DULoxetine HCL 20 MG CAPSULE.DR (FP) PO STA (15:49)
[2017-05-07] MEDS: AMITRIPTYLINE HCL 25 MG TABLET (FP) PO PRN (19:05)
[2017-05-07] MEDS: THIAMINE HCL 100 MG TABLET (FP) PO SCH (22:00)
[2017-05-07] MEDS: QUEtiapine FUMARATE 200 MG TABLET PO SCH (22:00)
[2017-05-08] MEDS: METHADONE HCL 40 MG DISPERSABLE TABLET PO SCH (06:30)
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
[2017-05-08] MEDS ORDERED: QUEtiapine FUMARATE 50 MG TABLET PO ONE (08:34)
[2017-05-08] MEDS: DULoxetine HCL 20 MG CAPSULE.DR (FP) PO SCH (09:00)
[2017-05-08] MEDS: EMTRICITABINE 200MG/TENOFOVIR 300MG PO SCH (09:03)
[2017-05-08] MEDS: RITONAVIR 100 MG TABLET PO SCH ×2 (09:03→22:03)
[2017-05-08] MEDS: BACITRACIN 0.9 GM PACKET TP SCH (09:04)
[2017-05-08] MEDS: SULFAMETHOXAZOLE/TRIMETHOPRIM 800MG/160MG D.S. TABLET PO SCH (09:04)
[2017-05-08] MEDS: PRENATAL VITAMINS W/ FOLIC ACID TABLET (FP) PO SCH (09:04)
[2017-05-08] MEDS: DARUNAVIR ETHANOLATE 600 MG TAB PO SCH ×2 (09:04→22:03)
[2017-05-08] MEDS: IBUPROFEN 400 MG TABLET (FP) PO PRN (15:52)
[2017-05-08] MEDS ORDERED: PT OWN MED DRAWER 7, Y5N ONE (19:57)
[2017-05-08] MEDS: QUEtiapine FUMARATE 200 MG TABLET PO SCH (22:03)
[2017-05-08] MEDS: THIAMINE HCL 100 MG TABLET (FP) PO SCH (22:03)
[2017-05-09] MEDS: METHADONE HCL 40 MG DISPERSABLE TABLET PO SCH (06:04)
[2017-05-09] MEDS ORDERED: PT OWN MED DRAWER 7, Y5N ONE (09:47)
[2017-05-09] MEDS: BACITRACIN 0.9 GM PACKET TP SCH (09:48)
[2017-05-09] MEDS: DULoxetine HCL 20 MG CAPSULE.DR (FP) PO SCH (09:48)
[2017-05-09] MEDS: SULFAMETHOXAZOLE/TRIMETHOPRIM 800MG/160MG D.S. TABLET PO SCH (09:48)
[2017-05-09] MEDS: EMTRICITABINE 200MG/TENOFOVIR 300MG PO SCH (09:49)
[2017-05-09] MEDS: RITONAVIR 100 MG TABLET PO SCH ×2 (09:49→21:47)
[2017-05-09] MEDS: PRENATAL VITAMINS W/ FOLIC ACID TABLET (FP) PO SCH (09:49)
[2017-05-09] MEDS: DARUNAVIR ETHANOLATE 600 MG TAB PO SCH ×2 (09:49→21:47)
--- NOTE | 2017-05-09 14:25 | PN ---
Psychiatric Progress Note Vital Signs: Vital Signs Period Temp Pulse Resp BP Sys/Mon[place]jo Pulse Ox Last 24 Hr 97.1 F 53 16-16 103/67 Date of Session: 05/09/17 Chief Complaint:: Scott still anxious and having anger issues. HPI: Patient addressed Opioid,Cocaine and Anxiolytic dependence comorbid with Bipolar disorder. ROS: Significant for HIV+,Hep C. Current Medications: Active Medications Generic Name Dose Route Start Last Admin Trade Name Freq PRN Reason Stop Dose Admin Acetaminophen 650 mg 04/28/17 20:21 Tylenol - PO Q4H PRN FEVER Al Hydroxide/Mg Hydroxide 30 ml 04/28/17 20:21 Mylanta Oral Suspension - PO Q6H PRN DYSPEPSIA Amitriptyline HCl 50 mg 05/01/17 11:18 05/07/17 19:05 Elavil - PO 50 mg BID PRN Administration ANXIETY Bacitracin 0.9 gm 05/01/17 14:40 05/09/17 09:48 Bacitracin - TP Not Given DAILY ERICH Darunavir 600 mg 04/28/17 22:00 05/09/17 09:49 Prezista - PO 600 mg BID ERICH Administration Duloxetine HCl 80 mg 05/08/17 10:00 05/09/17 09:48 Cymbalta - PO 80 mg DAILY ERICH Administration Emtricitabine/Tenofovir 1 tab 04/29/17 10:00 05/09/17 09:49 Truvada PO 1 tab DAILY ERICH Administration Eucalyptus/Menthol/Phenol/Sorbitol 1 each 04/28/17 20:21 Cepastat Lozenge - MM Q4H PRN SORE THROAT Guaifenesin 10 ml 04/28/17 20:21 Robitussin Dm - PO Q6H PRN COUGH Hydroxyzine Pamoate 50 mg 04/28/17 20:21 Vistaril - PO Q4H PRN AGITATION Ibuprofen 400 mg 04/28/17 20:21 05/08/17 15:52 Motrin - PO 400 mg Q6H PRN Administration Pain Level 4-6 Loperamide HCl 4 mg 04/28/17 20:21 Imodium - PO Q6H PRN DIARRHEA Lurasidone HCl 20 mg 05/09/17 14:15 Latuda - PO DAILY ERICH Magnesium Citrate 300 ml 04/28/17 20:21 Citroma - PO Q48H PRN CONSTIPATION Magnesium Hydroxide 30 ml 04/28/17 20:21 Milk Of Magnesia - PO DAILY PRN CONSTIPATION Methadone HCl 80 mg 05/06/17 06:00 05/09/17 06:04 Dolophine - PO 80 mg DAILY@0600 ERICH Administration Multivit/Folic Acid/Iron 1 tab 04/29/17 10:00 05/09/17 09:49 Vitamins (Sjr) - PO 1 tab DAILY ERICH Administration Pseudoephedrine/Triprolidine 1 combo 04/28/17 20:21 Actifed - PO TID PRN NASAL CONGESTION Quetiapine Fumarate 200 mg 05/01/17 22:00 05/08/17 22:03 Seroquel - PO 200 mg HS ERICH Administration Quetiapine Fumarate 25 mg 05/09/17 14:03 Seroquel - PO TID PRN ANXIETY Ritonavir 100 mg 04/28/17 22:00 05/09/17 09:49 Norvir - PO 100 mg BID ERICH Administration Thiamine HCl 100 mg 04/28/17 22:00 05/08/17 22:03 Vitamin B1 - PO 100 mg HS ERICH Administration Trimethoprim/Sulfamethoxazole 1 each 05/03/17 10:00 05/09/17 09:48 Bactrim Ds - PO 1 each DAILY ERICH Administration Current Side Effect: No Lab tests ordered: No Lab tests reviewed: Yes Provider note:: Chart was revuewed, medical staff notes has been appreciated.Patient was evaluated in my office.She reports feeling anxious and being angry at times due to her situation ,still some craving for crack.patient reports that she is not suicidal and she is not going to do anything- to hurt herself or others.Patient states :"this is my verbal contract ,I promise that i didnt mean to kill myself and Scott not going to do anything to myself this time, i made a lot of mistakes already". Medications has been discussed with the patient .She will continue Cymbalta 80 mg po daily,Elavil 25 mg po tid prn, Seroquel 200 mg po hs.Add Latuda 20 mg po daily and Seroquel 25 mg po tid prn for anxiety. D/C 1:1 observation.Supportive therapy,psychoeducation has been provided. Will monitor progress. Total face to face time:: 50 Mental Status Exam - Mental Status Exam Alert and Oriented to: Time, Place, Person Cognitive Function: Grossly Intact Patient Appearance: Unkempt Mood: Expansive Affect: Labile Patient Behavior: Talkative, Cooperative Speech Pattern: Clear Voice Loudness: Normal Thought Process: Goal Oriented Thought Disorder: Being Controlled Hallucinations: Denies Suicidal Ideation: Denies Homicidal Ideation: Denies Insight/Judgement: Fair Sleep: Fair Appetite: Good Muscle strength/Tone: Normal Gait/Station: Normal Psychiatric Treatment Plan - Problem List (1) Cocaine dependence Current Visit: Yes Qualifiers: (2) Laceration of chin Current Visit: Yes (3) Nicotine dependence Current Visit: Yes Qualifiers: (4) Opioid dependence on agonist therapy Current Visit: Yes (5) Sedative, hypnotic or anxiolytic dependence with withdrawal, uncomplicated Current Visit: Yes (6) Bipolar 1 disorder Current Visit: Yes (7) HIV (human immunodeficiency virus infection) Current Visit: Yes (8) Hepatitis C Current Visit: Yes Qualifiers: Viral hepatitis chronicity: unspecified Hepatic coma status: without hepatic coma Qualified Code(s): B19.20 - Unspecified viral hepatitis C without hepatic coma (9) Methadone maintenance therapy patient Current Visit: Yes
[2017-05-09] MEDS: QUEtiapine FUMARATE 25 MG TABLET (FP) PO PRN (14:45)
[2017-05-09] MEDS: LURASIDONE HCL 20 MG TABLET PO SCH (14:54)
[2017-05-09] MEDS: QUEtiapine FUMARATE 200 MG TABLET PO SCH (21:47)
[2017-05-09] MEDS: THIAMINE HCL 100 MG TABLET (FP) PO SCH (21:48)
[2017-05-10] MEDS: METHADONE HCL 40 MG DISPERSABLE TABLET PO SCH (06:07)
[2017-05-10] MEDS ORDERED: PT OWN MED DRAWER 7, Y5N ONE ×3 (09:11→10:57)
[2017-05-10] MEDS: PRENATAL VITAMINS W/ FOLIC ACID TABLET (FP) PO SCH (10:53)
[2017-05-10] MEDS: DARUNAVIR ETHANOLATE 600 MG TAB PO SCH ×2 (10:53→21:28)
[2017-05-10] MEDS: SULFAMETHOXAZOLE/TRIMETHOPRIM 800MG/160MG D.S. TABLET PO SCH (10:53)
[2017-05-10] MEDS: LURASIDONE HCL 20 MG TABLET PO SCH (10:54)
[2017-05-10] MEDS: EMTRICITABINE 200MG/TENOFOVIR 300MG PO SCH (10:54)
[2017-05-10] MEDS: RITONAVIR 100 MG TABLET PO SCH ×2 (10:56→21:28)
[2017-05-10] MEDS: QUEtiapine FUMARATE 25 MG TABLET (FP) PO PRN (10:57)
[2017-05-10] MEDS: BACITRACIN 0.9 GM PACKET TP SCH (10:58)
[2017-05-10] MEDS: DULoxetine HCL 20 MG CAPSULE.DR (FP) PO SCH (13:10)
[2017-05-10] MEDS: THIAMINE HCL 100 MG TABLET (FP) PO SCH (21:28)
[2017-05-10] MEDS: QUEtiapine FUMARATE 200 MG TABLET PO SCH (21:28)
[2017-05-11] MEDS: METHADONE HCL 40 MG DISPERSABLE TABLET PO SCH (06:15)
[2017-05-11] MEDS ORDERED: PT OWN MED DRAWER 7, Y5N ONE ×3 (09:05→19:40)
[2017-05-11] MEDS: BACITRACIN 0.9 GM PACKET TP SCH (10:23)
[2017-05-11] MEDS: SULFAMETHOXAZOLE/TRIMETHOPRIM 800MG/160MG D.S. TABLET PO SCH (10:23)
[2017-05-11] MEDS: PRENATAL VITAMINS W/ FOLIC ACID TABLET (FP) PO SCH (10:25)
[2017-05-11] MEDS: DULoxetine HCL 20 MG CAPSULE.DR (FP) PO SCH (10:25)
[2017-05-11] MEDS: EMTRICITABINE 200MG/TENOFOVIR 300MG PO SCH (10:27)
[2017-05-11] MEDS: DARUNAVIR ETHANOLATE 600 MG TAB PO SCH ×2 (10:27→21:40)
[2017-05-11] MEDS: RITONAVIR 100 MG TABLET PO SCH ×2 (10:27→21:40)
[2017-05-11] MEDS: LURASIDONE HCL 20 MG TABLET PO SCH (11:51)
[2017-05-11] MEDS: THIAMINE HCL 100 MG TABLET (FP) PO SCH (21:40)
[2017-05-11] MEDS: QUEtiapine FUMARATE 200 MG TABLET PO SCH (21:40)
[2017-05-12] MEDS: METHADONE HCL 40 MG DISPERSABLE TABLET PO SCH (06:15)
[2017-05-12] MEDS ORDERED: PT OWN MED DRAWER 7, Y5N ONE ×2 (09:36→11:13)
[2017-05-12] MEDS: SULFAMETHOXAZOLE/TRIMETHOPRIM 800MG/160MG D.S. TABLET PO SCH (10:42)
[2017-05-12] MEDS: PRENATAL VITAMINS W/ FOLIC ACID TABLET (FP) PO SCH (10:43)
[2017-05-12] MEDS: DARUNAVIR ETHANOLATE 600 MG TAB PO SCH ×2 (10:43→21:37)
[2017-05-12] MEDS: LURASIDONE HCL 40 MG TABLET PO SCH (10:44)
[2017-05-12] MEDS: RITONAVIR 100 MG TABLET PO SCH ×2 (10:44→21:38)
[2017-05-12] MEDS: BACITRACIN 0.9 GM PACKET TP SCH (10:44)
[2017-05-12] MEDS: EMTRICITABINE 200MG/TENOFOVIR 300MG PO SCH (10:45)
[2017-05-12] MEDS: DULoxetine HCL 20 MG CAPSULE.DR (FP) PO SCH (10:46)
[2017-05-12] MEDS: QUEtiapine FUMARATE 25 MG TABLET (FP) PO PRN (13:12)
[2017-05-12] MEDS: THIAMINE HCL 100 MG TABLET (FP) PO SCH (21:37)
[2017-05-12] MEDS: QUEtiapine FUMARATE 200 MG TABLET PO SCH (21:37)
[2017-05-13] MEDS: METHADONE HCL 40 MG DISPERSABLE TABLET PO SCH (06:17)
[2017-05-13] MEDS: ACETAMINOPHEN 325 MG TABLET (FP) PO PRN (09:06)
[2017-05-13] MEDS: BACITRACIN 0.9 GM PACKET TP SCH (09:07)
[2017-05-13] MEDS: SULFAMETHOXAZOLE/TRIMETHOPRIM 800MG/160MG D.S. TABLET PO SCH (09:07)
[2017-05-13] MEDS: DULoxetine HCL 20 MG CAPSULE.DR (FP) PO SCH (09:08)
[2017-05-13] MEDS: PRENATAL VITAMINS W/ FOLIC ACID TABLET (FP) PO SCH (09:08)
[2017-05-13] MEDS: LURASIDONE HCL 40 MG TABLET PO SCH (09:09)
[2017-05-13] MEDS ORDERED: PT OWN MED DRAWER 7, Y5N ONE (09:09)
[2017-05-13] MEDS: EMTRICITABINE 200MG/TENOFOVIR 300MG PO SCH (09:10)
[2017-05-13] MEDS: DARUNAVIR ETHANOLATE 600 MG TAB PO SCH ×2 (09:10→21:38)
[2017-05-13] MEDS: RITONAVIR 100 MG TABLET PO SCH ×2 (09:10→21:38)
[2017-05-13] MEDS: THIAMINE HCL 100 MG TABLET (FP) PO SCH (21:38)
[2017-05-13] MEDS: QUEtiapine FUMARATE 200 MG TABLET PO SCH (21:38)
[2017-05-14] MEDS: METHADONE HCL 40 MG DISPERSABLE TABLET PO SCH (06:20)
[2017-05-14] MEDS: SULFAMETHOXAZOLE/TRIMETHOPRIM 800MG/160MG D.S. TABLET PO SCH (09:22)
[2017-05-14] MEDS: DULoxetine HCL 20 MG CAPSULE.DR (FP) PO SCH (09:22)
[2017-05-14] MEDS: BACITRACIN 0.9 GM PACKET TP SCH (09:22)
[2017-05-14] MEDS: LURASIDONE HCL 40 MG TABLET PO SCH (09:23)
[2017-05-14] MEDS: DARUNAVIR ETHANOLATE 600 MG TAB PO SCH ×2 (09:23→21:21)
[2017-05-14] MEDS: PRENATAL VITAMINS W/ FOLIC ACID TABLET (FP) PO SCH (09:23)
[2017-05-14] MEDS: RITONAVIR 100 MG TABLET PO SCH ×2 (09:24→21:22)
[2017-05-14] MEDS: EMTRICITABINE 200MG/TENOFOVIR 300MG PO SCH (09:24)
[2017-05-14] MEDS: ACETAMINOPHEN 325 MG TABLET (FP) PO PRN (10:19)
[2017-05-14] MEDS: QUEtiapine FUMARATE 25 MG TABLET (FP) PO PRN (11:42)
[2017-05-14] MEDS: QUEtiapine FUMARATE 200 MG TABLET PO SCH (21:22)
[2017-05-14] MEDS: THIAMINE HCL 100 MG TABLET (FP) PO SCH (21:22)
[2017-05-15] MEDS: METHADONE HCL 40 MG DISPERSABLE TABLET PO SCH (06:03)
[2017-05-15 07:06] VITALS: BP 108/74; PULSE 76; TEMP 97.7
[2017-05-15] MEDS ORDERED: PT OWN MED DRAWER 7, Y5N ONE (08:59)
--- NOTE | 2017-05-15 09:02 | PN ---
Psychiatric Progress Note Vital Signs: Vital Signs Period Temp Pulse Resp BP Sys/Mon[place]jo Pulse Ox Last 24 Hr 97.7 F 76 16-18 108/74 Date of Session: 05/15/17 Chief Complaint:: Discharge visit HPI: Patient addressed Opioid,Cocaine and Anxiolytic dependence comorbid with Bipolar I disorder. ROS: Significant for HIV+,Hep C. Current Medications: Active Medications Generic Name Dose Route Start Last Admin Trade Name Freq PRN Reason Stop Dose Admin Acetaminophen 650 mg 04/28/17 20:21 05/14/17 10:19 Tylenol - PO 650 mg Q4H PRN Administration FEVER Al Hydroxide/Mg Hydroxide 30 ml 04/28/17 20:21 Mylanta Oral Suspension - PO Q6H PRN DYSPEPSIA Amitriptyline HCl 50 mg 05/01/17 11:18 05/07/17 19:05 Elavil - PO 50 mg BID PRN Administration ANXIETY Bacitracin 0.9 gm 05/01/17 14:40 05/14/17 09:22 Bacitracin - TP Not Given DAILY ERICH Darunavir 600 mg 04/28/17 22:00 05/14/17 21:21 Prezista - PO 600 mg BID ERICH Administration Duloxetine HCl 80 mg 05/08/17 10:00 05/14/17 09:22 Cymbalta - PO 80 mg DAILY ERICH Administration Emtricitabine/Tenofovir 1 tab 04/29/17 10:00 05/14/17 09:24 Truvada PO 1 tab DAILY ERICH Administration Eucalyptus/Menthol/Phenol/Sorbitol 1 each 04/28/17 20:21 Cepastat Lozenge - MM Q4H PRN SORE THROAT Guaifenesin 10 ml 04/28/17 20:21 Robitussin Dm - PO Q6H PRN COUGH Hydroxyzine Pamoate 50 mg 04/28/17 20:21 Vistaril - PO Q4H PRN AGITATION Ibuprofen 400 mg 04/28/17 20:21 05/08/17 15:52 Motrin - PO 400 mg Q6H PRN Administration Pain Level 4-6 Loperamide HCl 4 mg 04/28/17 20:21 Imodium - PO Q6H PRN DIARRHEA Lurasidone HCl 40 mg 05/12/17 10:00 05/14/17 09:23 Latuda - PO 40 mg DAILY ERICH Administration Magnesium Citrate 300 ml 04/28/17 20:21 Citroma - PO Q48H PRN CONSTIPATION Magnesium Hydroxide 30 ml 04/28/17 20:21 Milk Of Magnesia - PO DAILY PRN CONSTIPATION Methadone HCl 80 mg 05/13/17 06:00 05/15/17 06:03 Dolophine - PO 05/19/17 05:59 80 mg DAILY@0600 ERICH Administration Multivit/Folic Acid/Iron 1 tab 04/29/17 10:00 05/14/17 09:23 Vitamins (Sjr) - PO 1 tab DAILY ERICH Administration Pseudoephedrine/Triprolidine 1 combo 04/28/17 20:21 Actifed - PO TID PRN NASAL CONGESTION Quetiapine Fumarate 200 mg 05/01/17 22:00 05/14/17 21:22 Seroquel - PO 200 mg HS ERICH Administration Quetiapine Fumarate 25 mg 05/09/17 14:03 05/14/17 11:42 Seroquel - PO 25 mg TID PRN Administration ANXIETY Ritonavir 100 mg 04/28/17 22:00 05/14/17 21:22 Norvir - PO 100 mg BID ERICH Administration Thiamine HCl 100 mg 04/28/17 22:00 05/14/17 21:22 Vitamin B1 - PO 100 mg HS ERICH Administration Trimethoprim/Sulfamethoxazole 1 each 05/03/17 10:00 05/14/17 09:22 Bactrim Ds - PO 1 each DAILY ERICH Administration Current Side Effect: No Lab tests ordered: No Lab tests reviewed: Yes Provider note:: Patient completed this program today.She has met her treatment goals and will continue to address her issues on outpatient basis at [facility].Patient reports finding that current medications :Latuda 40 mg po daily,Seroquel 200 mg po hs and Cymbalta 80 mg po daily help to cope with mood instability,anxiety,sleeping difficulties. Scripts for 30 days provided. Psychotherpay provided focusing on relapse prevention. Patient is stable for discharge today. Total face to face time:: 30 Psychiatric Treatment Plan - Problem List (1) Cocaine dependence Current Visit: Yes Qualifiers: (2) Laceration of chin Current Visit: Yes (3) Nicotine dependence Current Visit: Yes Qualifiers: (4) Opioid dependence on agonist therapy Current Visit: Yes (5) Sedative, hypnotic or anxiolytic dependence with withdrawal, uncomplicated Current Visit: Yes (6) Bipolar 1 disorder Current Visit: Yes (7) HIV (human immunodeficiency virus infection) Current Visit: Yes (8) Hepatitis C Current Visit: Yes Qualifiers: Viral hepatitis chronicity: unspecified Hepatic coma status: without hepatic coma Qualified Code(s): B19.20 - Unspecified viral hepatitis C without hepatic coma (9) Methadone maintenance therapy patient Current Visit: Yes
[2017-05-15] MEDS: RITONAVIR 100 MG TABLET PO SCH (09:11)
[2017-05-15] MEDS: BACITRACIN 0.9 GM PACKET TP SCH (09:11)
[2017-05-15] MEDS: EMTRICITABINE 200MG/TENOFOVIR 300MG PO SCH (09:11)
[2017-05-15] MEDS: DARUNAVIR ETHANOLATE 600 MG TAB PO SCH (09:11)
[2017-05-15] MEDS: SULFAMETHOXAZOLE/TRIMETHOPRIM 800MG/160MG D.S. TABLET PO SCH (09:11)
[2017-05-15] MEDS: LURASIDONE HCL 40 MG TABLET PO SCH (09:11)
[2017-05-15] MEDS: PRENATAL VITAMINS W/ FOLIC ACID TABLET (FP) PO SCH (09:11)
[2017-05-15] MEDS: DULoxetine HCL 20 MG CAPSULE.DR (FP) PO SCH (09:11)
== END 2017-05-15 09:55 | disposition home or self-care (01) | DRG 772 ==
LOC: YASAS 18:06 → Y3E 04-28 18:07
PROVIDERS: ADMIT Psychiatry & Neurology Psychiatry; ATTEND Psychiatry & Neurology Psychiatry
PROC: HZ42ZZZ Group Counseling for Substance Abuse Treatment, Cognitive-Behavioral (ICD-10-PCS; principal; 2017-04-28)
DX: F11.20 Opioid dependence, uncomplicated (principal); F13.230 Sedative, hypnotic or anxiolytic dependence with withdrawal, uncomplicated; F14.20 Cocaine dependence, uncomplicated; F31.89 Other bipolar disorder; Z21 Asymptomatic human immunodeficiency virus [HIV] infection status; Z91.5 Personal history of self-harm; S01.81XD Laceration without foreign body of other part of head, subsequent encounter; X58.XXXD Exposure to other specified factors, subsequent encounter

== ENCOUNTER 2017-09-19 15:32 | Inpatient (IN) | payer OTHER ==
[2017-09-19 17:22] VITALS: BMI 24.2
--- NOTE | 2017-09-19 20:35 | HP ---
CIWA Score - CIWA Score Nausea/Vomitin-Mild Nausea/No Vomiting Muscle Tremors: 2 Anxiety: 3 Agitation: 4-Moderately Restless Paroxysmal Sweats: 3 Orientation: 0-Oriented Tacttile Disturbances: 0-None Auditory Disturbances: 0-None Visual Disturbances: 0-None Headache: 0-None Present CIWA-Ar Total Score: 13 Admission ROS S - HPI Chief Complaint: xanax withdrawal symptoms Allergies/Adverse Reactions: Allergies Allergy/AdvReac Type Severity Reaction Status Date / Time lamotrigine [From Lamictal] Allergy Severe Rash Verified 09/19/17 19:33 History of Present Illness: 67 yo female with nicotine, cocaine and xanax dependence is here for detox, this is one of multiple admissions. MMTP [facility] on methadone 80 mg, last medicated today, dose pending verification. As per patient she was given a take home bottle for 09/20/17, as per patient she drank it today. PMHX: HIV +, Hep C, anxiety, depression, insomnia, personality disorder, PTSD and panic attacks. Denies suicidal / homicidal ideation. Reports hx of psychiatric admissions in the past for suicide ideation or attempt. Last detox [facility] 04/25/17 - 04/28/17. Longest period of sobriety 11 years 1976 - 1987. #: [id number] Others' Prescriptions Patient Name: Lanette Olivarez Date: 1950 Address: [address] [place] [address] Sex: Female Rx Written Rx Dispensed Drug Quantity Days Supply Prescriber Name 03/15/2017 03/16/2017 clonazepam 1 mg tablet 60 30 Zoie Dutta) 01/05/2017 01/05/2017 clonazepam 1 mg tablet 90 30 Daniel Yancey 12/05/2016 12/05/2016 clonazepam 1 mg tablet 90 30 Pippa Mehta Patient Name: Lanette Olivarez Date: 1950 Address: [address], [place] [address] Sex: Female Rx Written Rx Dispensed Drug Quantity Days Supply Prescriber Name 02/07/2017 02/20/2017 clonazepam 1 mg tablet 18 5 Gayle Goldsmith MD Exam Limitations: No Limitations - Ebola screening Have you traveled outside of the country in the last 21 days: No (N) Have you had contact with anyone from an Ebola affected area: No Have you been sick,other than usual withdrawal symptoms: No Do you have a fever: No - Review of Systems Constitutional: Chills, Loss of Appetite, Changes in sleep, Unintentional Wgt. Loss EENT: reports: No Symptoms Reported Respiratory: reports: No Symptoms reported Cardiac: reports: No Symptoms Reported GI: reports: Nausea, Poor Appetite, Poor Fluid Intake : reports: No Symptoms Reported Musculoskeletal: reports: No Symptoms Reported Integumentary: reports: No Symptoms Reported Neuro: reports: See HPI Endocrine: reports: Increased Thirst Hematology: reports: See HPI Psychiatric: reports: Orientated x3, Anxious Other Systems: Reviewed and Negative Patient History - Patient Medical History Hx Anemia: No Hx Asthma: No Hx Chronic Obstructive Pulmonary Disease (COPD): No Hx Cancer: No Hx Cardiac Disorders: No Hx Congestive Heart Failure: No Hx Hypertension: No Hx Hypercholesterolemia: No Hx Pacemaker: No HX Cerebrovascular Accident: No Hx Seizures: No Hx Dementia: No Hx Diabetes: No Hx Gastrointestinal Disorders: No Hx Liver Disease: Yes (Hep C) Hx Genitourinary Disorders: No Hx Sexually Transmitted Disorders: No Hx Renal Disease (ESRD): No Hx Thyroid Disease: No Hx Human Immunodeficiency Virus (HIV): Yes (since 2000;NORVIR, PREZISTA;TRUVADA) Hx Hepatitis C: Yes (1987) Hx Depression: No Hx Suicide Attempt: No Hx Bipolar Disorder: Yes Hx Schizophrenia: No - Patient Surgical History Past Surgical History: Yes Hx Neurologic Surgery: No Hx Cataract Extraction: No Hx Cardiac Surgery: No Hx Lung Surgery: No Hx Breast Surgery: No Hx Breast Biopsy: No Hx Abdominal Surgery: No Hx Appendectomy: No Hx Cholecystectomy: No Hx Genitourinary Surgery: No Hx Section: No Hx Orthopedic Surgery: Yes (LOWER BACK SX WITH 4 PLATES IN 03/07/2016) Hx Hysterectomy: No Other Surgical History: fx, both legs and right knee in 2002 Anesthesia Reaction: No - PPD History Previous Implant?: No Date: 12/30/16 Results: 0MM PPD to be Administered?: No - Reproductive History Patient is a Female of Child Bearing Age (11 -55 yrs old): No - Smoking Cessation Smoking history: Current every day smoker Have you smoked in the past 12 months: Yes Aproximately how many cigarettes per day: 7 Cigars Per Day: 0 Hx Chewing Tobacco Use: No Initiated information on smoking cessation: Yes 'Breaking Loose' booklet given: 09/19/17 - Substance & Tx. History Hx Alcohol Use: No Hx Substance Use: Yes Substance Use Type: Cocaine, Tranquilizers Hx Substance Use Treatment: Yes ([facility] 04/25/17 - 04/28/17) - Substances Abused Alprazolam (Xanax) Route: Oral Frequency: Daily Amount used: 10mg Age of first use: 37 Date of Last Use: 09/19/17 Cocaine Route: Inhalation Frequency: 1-2 times per week Amount used: $50 worth Age of first use: 19 Date of Last Use: 09/19/17 Family Disease History - Family Disease History Family Disease History: Other: Brother (dsa), Sister (alcohol,dsa) Admission Physical Exam S - Vital Signs Vital Signs: Vital Signs - 24 hr 09/19/17 17:18 Temperature 98.7 F Pulse Rate 74 Respiratory 20 Rate Blood Pressure 98/70 - Physical General Appearance: Yes: Disheveled, Mild Distress, Irritable, Sweating, Anxious HEENTM: Yes: Hearing grossly Normal, Normal ENT Inspection, Normocephalic, Normal Voice, EMILY, Pharynx Normal, Tm's normal, Other ( Edentulous) Respiratory: Yes: Chest Non-Tender, Lungs Clear, Normal Breath Sounds, No Respiratory Distress, No Accessory Muscle Use Neck: Yes: No masses,lesions,Nodules, Trachea in good position Breast: Yes: Breast Exam Deferred Cardiology: Yes: Regular Rhythm, Regular Rate Abdominal: Yes: Normal Bowel Sounds, Non Tender, Flat, Soft Genitourinary: Yes: Within Normal Limits Back: Yes: Normal Inspection Musculoskeletal: Yes: full range of Motion, Gait Steady, Pelvis Stable Extremities: Yes: Normal Capillary Refill, Normal Inspection, Normal Range of Motion, Non-Tender 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: Yes: 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 NML intact, Fully Oriented, Alert, Motor Strength 5/5, Depressed Affect Integumentary: Yes: Normal Color, Warm, Diaphoresis Lymphatic: Yes: Within Normal Limits - Diagnostic (1) Weight loss Current Visit: Yes Status: Acute (2) Cocaine dependence Current Visit: Yes Status: Chronic Qualifiers: (3) HIV (human immunodeficiency virus infection) Current Visit: Yes Status: Chronic (4) Hepatitis C Current Visit: Yes Status: Chronic Qualifiers: Viral hepatitis chronicity: unspecified Hepatic coma status: without hepatic coma Qualified Code(s): B19.20 - Unspecified viral hepatitis C without hepatic coma (5) Methadone maintenance therapy patient Current Visit: Yes Status: Chronic Comment: Patient on 80 mg qd, dose pending verification (6) Nicotine dependence Current Visit: Yes Status: Chronic Qualifiers: (7) Sedative, hypnotic or anxiolytic dependence with withdrawal, uncomplicated Current Visit: Yes Status: Acute Cleared for Admission [facility] - Detox or Rehab [facility] Level of Care: Medically Managed Detox Regimen/Protocol: Valium [facility] Breath Alcohol Content Breath Alcohol Content: 0 Urine Drug Screen - Results Drug Screen Negative: No Urine Drug Screen Results: YAZ-Cocaine, BZO-Benzodiazepines, MTD-Methadone
[2017-09-19] MEDS ORDERED: hydrOXYzine PAMOATE 50 MG CAPSULE (FP) PO PRN (20:46)
[2017-09-19] MEDS ORDERED: LOPERAMIDE HCL 2 MG CAPSULE PO PRN (20:46)
[2017-09-19] MEDS ORDERED: MAGNESIUM CITRATE 300 ML BOTTLE PO PRN (20:46)
[2017-09-19] MEDS ORDERED: diazePAM 5 MG TABLET PO ONE (20:46)
[2017-09-19] MEDS ORDERED: P-EPHED 60MG/TRIPROLIDI 2.5MG TABLET PO PRN (20:46)
[2017-09-19] MEDS ORDERED: MENTHOL/PHENOL 1 EACH UD MM PRN (20:46)
[2017-09-19] MEDS ORDERED: NICOTINE POLACRILEX 2 MG GUM BC PRN (20:46)
[2017-09-19] MEDS ORDERED: guaiFENesin/D-METHORPHAN HB 10 ML UNIT-DOSE CUPS PO PRN (20:46)
[2017-09-19] MEDS ORDERED: MAG HYDROX/AL HYDROX/SIMETH 30 ML UNIT-DOSE CUP PO PRN (20:46)
[2017-09-19] MEDS ORDERED: MAGNESIUM HYDROX 2400MG/30ML ORAL SUSPENSION 30 ML CUP PO PRN (20:46)
[2017-09-19] MEDS: SULFAMETHOXAZOLE/TRIMETHOPRIM 800MG/160MG D.S. TABLET PO SCH (22:15)
[2017-09-19] MEDS: THIAMINE HCL 100 MG TABLET (FP) PO SCH (22:15)
--- NOTE | 2017-09-19 22:52 | PN ---
[facility] Progress Note Note: unwitnessed fall while going to the bathroom,patient reports she suffered no injury. Vital Signs Temperature 97.9 F 09/19/17 22:41 Pulse Rate 62 09/19/17 22:41 Respiratory Rate 19 09/19/17 22:41 Blood Pressure 104/72 09/19/17 22:41 O2 Sat by Pulse Oximetry (%) Patient AOx3, no changes in LOC No adventicious breath sounds Full ROM, no skin break down or erythema No signs of injury fall protocol #[address] SCAN continue to monitor
[2017-09-19] MEDS: diazePAM 5 MG TABLET PO SCH (22:58)
[2017-09-19] MEDS: IBUPROFEN 400 MG TABLET (FP) PO PRN (23:23)
[2017-09-20] MEDS: diazePAM 5 MG TABLET PO SCH ×3 (06:00→22:23)
[2017-09-20] MEDS: IBUPROFEN 400 MG TABLET (FP) PO PRN ×2 (09:14→19:10)
[2017-09-20] MEDS ORDERED: METHADONE HCL 10 MG TABLET PO ONE (09:40)
[2017-09-20 09:43] LABS: HEMATOCRIT 32.1 % (32.4-45.2); HEMOGLOBIN 10.9 GM/dL (10.7-15.3); MCHC 33.9 g/dl (32.0-36.0); MEAN CELL VOLUME 100.3 fl (80-96); MEAN PLT VOLUME 11.4 fl (7.5-11.1); PLATELET COUNT 100 K/MM3 (134-434); RDW 13.4 % (11.6-15.6); WHITE BLOOD COUNT 3.9 K/mm3 (4.0-10.0)
[2017-09-20 09:57] LABS: CHLORIDE 104 mmol/L (98-107); POTASSIUM 3.4 mmol/L (3.5-5.1); SODIUM 140 mmol/L (136-145)
[2017-09-20] MEDS: SULFAMETHOXAZOLE/TRIMETHOPRIM 800MG/160MG D.S. TABLET PO SCH (10:23)
[2017-09-20] MEDS: PRENATAL VITAMINS W/ FOLIC ACID TABLET (FP) PO SCH (10:23)
[2017-09-20] MEDS: NICOTINE 14 MG/24 HOURS TOPICAL PATCH TD SCH (10:23)
[2017-09-20] MEDS: diazePAM 5 MG TABLET PO PRN ×2 (10:24→18:59)
[2017-09-20 10:33] LABS: ALBUMIN 3.2 g/dl (3.4-5.0); ALK PHOS 67 U/L (45-117); ANION GAP 11 (8-16); BILIRUBIN,TOTAL 0.6 mg/dL (0.2-1.0); BLOOD UREA NITROGEN 24 mg/dL (7-18); CALCIUM 7.6 mg/dL (8.5-10.1); CO2 25 mmol/L (21-32); CREATININE 0.8 mg/dL (0.55-1.02); GLUCOSE,RANDOM 104 mg/dL (74-106); SGOT/AST 44 U/L (15-37); SGPT/ALT 49 U/L (12-78); TOT PROT 6.3 g/dl (6.4-8.2)
--- NOTE | 2017-09-20 13:08 | PN ---
[facility] CIWA - CIWA Score Nausea/Vomitin-No Nausea/No Vomiting Muscle Tremors: 3 Anxiety: 4-Mod. Anxious/Guarded Agitation: 4-Moderately Restless Paroxysmal Sweats: 1-Minimal Palms Moist Orientation: 0-Oriented Tacttile Disturbances: 0-None Auditory Disturbances: 0-None Visual Disturbances: 0-None Headache: 0-None Present CIWA-Ar Total Score: 12 S Progress Note (SOAP) Subjective: anxiety restlessness difficulty sitting still patient reported that she fell last night around 11 pm feeling "ok" refused ER evaluation both wrists pain today immobile Objective: 09/20/17 13:10 Vital Signs Temperature 97.7 F 09/20/17 11:00 Pulse Rate 70 09/20/17 11:00 Respiratory Rate 18 09/20/17 11:00 Blood Pressure 111/73 09/20/17 11:00 O2 Sat by Pulse Oximetry (%) Laboratory Last Values WBC 3.9 K/mm3 (4.0-10.0) L 09/20/17 08:00 RBC 3.20 M/mm3 (3.60-5.2) L 09/20/17 08:00 Hgb 10.9 GM/dL (10.7-15.3) 09/20/17 08:00 Hct 32.1 % (32.4-45.2) L D 09/20/17 08:00 MCV 100.3 fl (80-96) H 09/20/17 08:00 MCH 34.0 pg (25.7-33.7) H 09/20/17 08:00 MCHC 33.9 g/dl (32.0-36.0) 09/20/17 08:00 RDW 13.4 % (11.6-15.6) 09/20/17 08:00 Plt Count 100 K/MM3 (134-434) L D 09/20/17 08:00 MPV 11.4 fl (7.5-11.1) H 09/20/17 08:00 Sodium 140 mmol/L (136-145) 09/20/17 08:00 Potassium 3.4 mmol/L (3.5-5.1) L 09/20/17 08:00 Chloride 104 mmol/L (98-107) 09/20/17 08:00 Carbon Dioxide 25 mmol/L (21-32) 09/20/17 08:00 Anion Gap 11 (8-16) 09/20/17 08:00 BUN 24 mg/dL (7-18) H 09/20/17 08:00 Creatinine 0.8 mg/dL (0.55-1.02) 09/20/17 08:00 Creat Clearance w eGFR > 60 (>60) 09/20/17 08:00 Random Glucose 104 mg/dL (74-106) 09/20/17 08:00 Calcium 7.6 mg/dL (8.5-10.1) L 09/20/17 08:00 Total Bilirubin 0.6 mg/dL (0.2-1.0) 09/20/17 08:00 AST 44 U/L (15-37) H 09/20/17 08:00 ALT 49 U/L (12-78) 09/20/17 08:00 Alkaline Phosphatase 67 U/L (45-117) 09/20/17 08:00 Total Protein 6.3 g/dl (6.4-8.2) L 09/20/17 08:00 Albumin 3.2 g/dl (3.4-5.0) L 09/20/17 08:00 RPR Titer Nonreactive (NONREACTIVE) 09/20/17 08:00 lab noted repeat K+ 09/20/17 13:12 right wrist and hand swell 10/10 pain skin intact warm erythema tender no passive movement left wrist pain limited mobility Assessment: 09/20/17 13:12 withdrawal sx 09/20/17 13:13 discuss risks of possible wrist dislocation or fracture Plan: continue detox patient agrees to go to er for wrists x ray and treatment for unwitnessed fall unable to verify methadone dosage a 20 mg methodone x 1 for today ambulance was called for pain swell immobile of wrists information provided to ER
--- NOTE | 2017-09-20 15:46 | EKG ---
Test Reason : Blood Pressure : / mmHG Vent. Rate : 060 BPM Atrial Rate : 060 BPM P-R Int : 160 ms QRS Dur : 082 ms QT Int : 438 ms P-R-T Axes : 037 005 032 degrees QTc Int : 438 ms NORMAL SINUS RHYTHM NORMAL ECG WHEN COMPARED WITH ECG OF 25-APR-2017 17:51, NONSPECIFIC T WAVE ABNORMALITY NOW EVIDENT IN ANTERIOR LEADS Confirmed by HECTOR CESAR MD ([id number]) on 09/20/2017 3:46:10 PM Referred By: Confirmed By:HECTOR CESAR MD
--- NOTE | 2017-09-20 18:13 | PN ---
[facility] Progress Note Note: Psychiatric nurse practitioner note: Chemical Cell Changer informed by nursing staff that patient was sent out 911 to [facility] emergency department.
[2017-09-20] MEDS: MELATONIN 5 MG TABLETS PO PRN (22:23)
[2017-09-20] MEDS: THIAMINE HCL 100 MG TABLET (FP) PO SCH (22:23)
[2017-09-21] MEDS: diazePAM 5 MG TABLET PO PRN ×5 (01:48→19:52)
[2017-09-21] MEDS: IBUPROFEN 600 MG TABLET (FP) PO PRN ×3 (01:50→17:21)
[2017-09-21] MEDS: SULFAMETHOXAZOLE/TRIMETHOPRIM 800MG/160MG D.S. TABLET PO SCH (09:12)
[2017-09-21] MEDS: PRENATAL VITAMINS W/ FOLIC ACID TABLET (FP) PO SCH (09:12)
[2017-09-21] MEDS: diazePAM 5 MG TABLET PO SCH ×2 (09:12→22:14)
[2017-09-21] MEDS: NICOTINE 14 MG/24 HOURS TOPICAL PATCH TD SCH (09:14)
[2017-09-21] MEDS: DULOXETINE HCL PO SCH (09:59)
[2017-09-21] MEDS ORDERED: DULoxetine HCL 60 MG CAPSULE.DR PO SCH (10:00)
[2017-09-21] MEDS ORDERED: METHADONE HCL 40 MG DISPERSABLE TABLET PO ONE (10:00)
--- NOTE | 2017-09-21 10:23 | CONSULT ---
[facility] Psychiatric Consult - Data Date of interview: 09/21/17 Admission source: [facility] Identifying data: This is 67 years old female, single mother of one, homeless, on SSI, with nicotine, cocaine and xanax dependence is here for detox, this is one of multiple admissions. Patient on MMTP at [facility] with methadone 80 mg/day, Patient presenrts with both distal radius fractures, in a casts, needs additional assistance as per medical decision. Substance Abuse History: - Smoking Cessation. Smoking history: Current every day smoker. Have you smoked in the past 12 months: Yes. Aproximately how many cigarettes per day: 7. Cigars Per Day: 0. Hx Chewing Tobacco Use: No. Initiated information on smoking cessation: Yes. 'Breaking Loose' booklet given : 09/19/17. - Substance & Tx. History. Hx Alcohol Use: No. Hx Substance Use: Yes. Substance Use Type: Cocaine, Tranquilizers. Hx Substance Use Treatment: Yes ([facility] 04/25/17 - 04/28/17). - Substances Abused. Alprazolam (Xanax). Route : Oral. Frequency: Daily. Amount used: 10mg. Age of first use: 37. Date of Last Use: 09/19/17. Cocaine. Route: Inhalation. Frequency: 1-2 times per week. Amount used: $50 worth. Age of first use: 19. Date of Last Use: Medical History: hiv+, Hep C+, MMTP 80 mg p[e rday, Weight loss hisatory, Psychiatric History: Patient reports history of Bipolar disorder, PTSD, Panic Attacks disorder, wityh most recent psychiatric admission on about 2 months ago at [facility] for safety. Patient reportse takijng prior to admission: Seroquel 200mg po qhs. Cymbalta 90 mg poqd Physical/Sexual Abuse/Trauma History: Denies Additional Comment: Seroquel 200mg po qhs. Cymbalta 90 mg poqd Mental Status Exam - Mental Status Exam Alert and Oriented to: Person Cognitive Function: Fair Patient Appearance: Well Groomed Mood: Anxious Affect: Mood Congruent Patient Behavior: Talkative, Cooperative Speech Pattern: Appropriate, Excessive Voice Loudness: Mildly Soft/Quiet Thought Process: Goal Oriented Thought Disorder: Being Controlled Hallucinations: Denies Suicidal Ideation: Denies Homicidal Ideation: Denies Insight/Judgement: Fair Sleep: Difficulty falling asleep Appetite: Weight loss Muscle strength/Tone: Mild Hypotonicity Gait/Station: Normal Additional Comments: Seroquel 200mg po qhs. Cymbalta 90 mg poqd Psychiatric Findings - Problem List ([place] 1, 2,3) (1) Sedative, hypnotic or anxiolytic dependence with withdrawal, uncomplicated Current Visit: Yes Status: Acute (2) Weight loss Current Visit: Yes Status: Acute (3) Cocaine dependence Current Visit: Yes Status: Chronic Qualifiers: (4) HIV (human immunodeficiency virus infection) Current Visit: Yes Status: Chronic (5) Hepatitis C Current Visit: Yes Status: Chronic Qualifiers: Viral hepatitis chronicity: unspecified Hepatic coma status: without hepatic coma Qualified Code(s): B19.20 - Unspecified viral hepatitis C without hepatic coma (6) Methadone maintenance therapy patient Current Visit: Yes Status: Chronic Comment: Patient on 80 mg qd, dose pending verification (7) Nicotine dependence Current Visit: Yes Status: Chronic Qualifiers: (8) Bipolar 1 disorder Current Visit: No Status: Acute (9) Distal radius fracture Current Visit: No Status: Acute (10) Distal radius fracture, left Current Visit: No Status: Acute Qualifiers: Encounter type: initial encounter Fracture type: closed Fracture morphology: Demar' Qualified Code(s): S52.532A - Colles' fracture of left radius, initial encounter for closed fracture (11) Distal radius fracture, right Current Visit: No Status: Acute Qualifiers: Encounter type: initial encounter Fracture type: closed Fracture morphology: Demar' Qualified Code(s): S52.531A - Colles' fracture of right radius, initial encounter for closed fracture (12) Fracture of ulnar styloid Current Visit: No Status: Acute (13) HIV disease Current Visit: No Status: Chronic (14) Laceration of chin Current Visit: No Status: Chronic (15) Opioid dependence on agonist therapy Current Visit: No Status: Chronic - Initial Treatment Plan Initial Treatment Plan: Seroquel 200mg po qhs. Cymbalta 90 mg poqd
[2017-09-21 10:34] LABS: URINE APPEARANCE CLEAR; URINE BILIRUBIN NEGATIVE (<2.0 mg/dL); URINE COLOR LTYELLOW; URINE GLUCOSE (UA) NEGATIVE (NEGATIVE); URINE KETONE NEGATIVE (NEGATIVE); URINE NITRITE NEGATIVE (NEGATIVE); URINE PROTEIN NEGATIVE (NEGATIVE)
[2017-09-21 10:36] LABS: URINE LEUK ESTERASE 2+ (NEGATIVE)
[2017-09-21 10:37] LABS: EPI CELLS RARE /HPF (FEW)
--- NOTE | 2017-09-21 14:53 | PN ---
[facility] CIWA - CIWA Score Nausea/Vomitin-No Nausea/No Vomiting Muscle Tremors: 4-Moderate,w/Arms Extend Anxiety: 3 Agitation: 3 Paroxysmal Sweats: 1-Minimal Palms Moist Orientation: 0-Oriented Tacttile Disturbances: 0-None Auditory Disturbances: 0-None Visual Disturbances: 0-None Headache: 0-None Present CIWA-Ar Total Score: 11 [facility] Progress Note (SOAP) Subjective: sweat tremor anxiety restlessness fingers nail brisk capillary refilled skin warm pink move freely Objective: 09/21/17 14:42 Vital Signs Temperature 98.2 F 09/21/17 13:59 Pulse Rate 67 09/21/17 13:59 Respiratory Rate 18 09/21/17 13:59 Blood Pressure 104/60 09/21/17 13:59 O2 Sat by Pulse Oximetry (%) Laboratory Last Values WBC 3.9 K/mm3 (4.0-10.0) L 09/20/17 08:00 RBC 3.20 M/mm3 (3.60-5.2) L 09/20/17 08:00 Hgb 10.9 GM/dL (10.7-15.3) 09/20/17 08:00 Hct 32.1 % (32.4-45.2) L D 09/20/17 08:00 MCV 100.3 fl (80-96) H 09/20/17 08:00 MCH 34.0 pg (25.7-33.7) H 09/20/17 08:00 MCHC 33.9 g/dl (32.0-36.0) 09/20/17 08:00 RDW 13.4 % (11.6-15.6) 09/20/17 08:00 Plt Count 100 K/MM3 (134-434) L D 09/20/17 08:00 MPV 11.4 fl (7.5-11.1) H 09/20/17 08:00 Sodium 140 mmol/L (136-145) 09/20/17 08:00 Potassium 4.1 mmol/L (3.5-5.1) 09/21/17 07:40 Chloride 104 mmol/L (98-107) 09/20/17 08:00 Carbon Dioxide 25 mmol/L (21-32) 09/20/17 08:00 Anion Gap 11 (8-16) 09/20/17 08:00 BUN 24 mg/dL (7-18) H 09/20/17 08:00 Creatinine 0.8 mg/dL (0.55-1.02) 09/20/17 08:00 Creat Clearance w eGFR > 60 (>60) 09/20/17 08:00 Random Glucose 104 mg/dL (74-106) 09/20/17 08:00 Calcium 7.6 mg/dL (8.5-10.1) L 09/20/17 08:00 Total Bilirubin 0.6 mg/dL (0.2-1.0) 09/20/17 08:00 AST 44 U/L (15-37) H 09/20/17 08:00 ALT 49 U/L (12-78) 09/20/17 08:00 Alkaline Phosphatase 67 U/L (45-117) 09/20/17 08:00 Total Protein 6.3 g/dl (6.4-8.2) L 09/20/17 08:00 Albumin 3.2 g/dl (3.4-5.0) L 09/20/17 08:00 Urine Color Ltyellow 09/21/17 07:40 Urine Appearance Clear 09/21/17 07:40 Urine pH 7.0 (5.0-8.0) D 09/21/17 07:40 Ur Specific [place] 1.009 (1.001-1.035) 09/21/17 07:40 Urine Protein Negative (NEGATIVE) 09/21/17 07:40 Urine Glucose (UA) Negative (NEGATIVE) 09/21/17 07:40 Urine Ketones Negative (NEGATIVE) 09/21/17 07:40 Urine Blood Negative (NEGATIVE) 09/21/17 07:40 Urine Nitrite Negative (NEGATIVE) 09/21/17 07:40 Urine Bilirubin Negative (<2.0 mg/dL) 09/21/17 07:40 Urine Urobilinogen 2.0 mg/dL (0.2-1.0) H 09/21/17 07:40 Ur Leukocyte Esterase 2+ (NEGATIVE) H 09/21/17 07:40 Urine WBC (Auto) 5 /hpf (3-5) 09/21/17 07:40 Urine RBC (Auto) None /hpf (0-3) 09/21/17 07:40 Ur Epithelial Cells Rare /HPF (FEW) 09/21/17 07:40 RPR Titer Nonreactive (NONREACTIVE) 09/20/17 08:00 lab noted anthony+ low uti 09/21/17 14:45 Assessment: 09/21/17 14:43 withdrawal sx low ca+ 09/21/17 14:45 uti Plan: continue detox ca+ supplement continue bactrim ds
[2017-09-21] MEDS: CALCIUM 500MG/VIT-D 200 UNITS COMBO TABLET (FP) PO SCH (22:14)
[2017-09-21] MEDS: QUEtiapine FUMARATE 200 MG TABLET PO SCH (22:14)
[2017-09-21] MEDS: THIAMINE HCL 100 MG TABLET (FP) PO SCH (22:14)
[2017-09-22] MEDS: diazePAM 5 MG TABLET PO PRN ×4 (01:55→17:12)
[2017-09-22] MEDS: IBUPROFEN 600 MG TABLET (FP) PO PRN ×3 (01:56→22:21)
[2017-09-22] MEDS: METHADONE HCL 40 MG DISPERSABLE TABLET PO SCH (06:24)
[2017-09-22] MEDS: ACETAMINOPHEN 325 MG TABLET (FP) PO PRN (06:59)
[2017-09-22] MEDS: DULOXETINE HCL PO SCH (10:05)
[2017-09-22] MEDS: diazePAM 5 MG TABLET PO SCH ×2 (10:05→22:20)
[2017-09-22] MEDS: CALCIUM 500MG/VIT-D 200 UNITS COMBO TABLET (FP) PO SCH ×2 (10:05→22:21)
[2017-09-22] MEDS: PRENATAL VITAMINS W/ FOLIC ACID TABLET (FP) PO SCH (10:05)
[2017-09-22] MEDS: SULFAMETHOXAZOLE/TRIMETHOPRIM 800MG/160MG D.S. TABLET PO SCH (10:05)
[2017-09-22] MEDS: NICOTINE 14 MG/24 HOURS TOPICAL PATCH TD SCH (10:11)
--- NOTE | 2017-09-22 14:40 | PN ---
S Progress Note (SOAP) Subjective: pt has both arms in a cast b/c of bilateral frx from recent fall. Pt is walking around and has no complaints. Objective: 09/22/17 14:33 CBC, BMP 09/20/17 08:00 09/21/17 07:40 CBCD WBC 3.9 K/mm3 (4.0-10.0) L 09/20/17 08:00 RBC 3.20 M/mm3 (3.60-5.2) L 09/20/17 08:00 Hgb 10.9 GM/dL (10.7-15.3) 09/20/17 08:00 Hct 32.1 % (32.4-45.2) L D 09/20/17 08:00 MCV 100.3 fl (80-96) H 09/20/17 08:00 MCHC 33.9 g/dl (32.0-36.0) 09/20/17 08:00 RDW 13.4 % (11.6-15.6) 09/20/17 08:00 Plt Count 100 K/MM3 (134-434) L D 09/20/17 08:00 MPV 11.4 fl (7.5-11.1) H 09/20/17 08:00 CMP Sodium 140 mmol/L (136-145) 09/20/17 08:00 Potassium 4.1 mmol/L (3.5-5.1) 09/21/17 07:40 Chloride 104 mmol/L (98-107) 09/20/17 08:00 Carbon Dioxide 25 mmol/L (21-32) 09/20/17 08:00 Anion Gap 11 (8-16) 09/20/17 08:00 BUN 24 mg/dL (7-18) H 09/20/17 08:00 Creatinine 0.8 mg/dL (0.55-1.02) 09/20/17 08:00 Creat Clearance w eGFR > 60 (>60) 09/20/17 08:00 Calcium 7.6 mg/dL (8.5-10.1) L 09/20/17 08:00 Total Bilirubin 0.6 mg/dL (0.2-1.0) 09/20/17 08:00 AST 44 U/L (15-37) H 09/20/17 08:00 ALT 49 U/L (12-78) 09/20/17 08:00 Alkaline Phosphatase 67 U/L (45-117) 09/20/17 08:00 Total Protein 6.3 g/dl (6.4-8.2) L 09/20/17 08:00 Albumin 3.2 g/dl (3.4-5.0) L 09/20/17 08:00 mild anemia increased ASY low plt count low BP selma forarms in cast- able to move fingers Vital Signs - 24 hr 09/21/17 09/21/17 09/22/17 18:04 22:49 00:30 Temperature 98.2 F 98.4 F Pulse Rate 73 68 Respiratory 19 18 18 Rate Blood Pressure 130/87 113/82 09/22/17 09/22/17 09/22/17 03:30 06:21 11:26 Temperature 95.9 F L 97.5 F L Pulse Rate 61 58 L Respiratory 16 18 14 Rate Blood Pressure 95/54 92/61 Assessment: ass/plan: continue benzo detox protocol arms in cast- sling, f/u with ortho
[2017-09-22] MEDS: QUEtiapine FUMARATE 200 MG TABLET PO SCH (22:20)
[2017-09-22] MEDS: THIAMINE HCL 100 MG TABLET (FP) PO SCH (22:20)
[2017-09-22] MEDS: MELATONIN 5 MG TABLETS PO PRN (22:21)
[2017-09-23] MEDS: METHADONE HCL 40 MG DISPERSABLE TABLET PO SCH (05:33)
[2017-09-23] MEDS: ACETAMINOPHEN 325 MG TABLET (FP) PO PRN ×3 (05:34→17:38)
[2017-09-23] MEDS: IBUPROFEN 600 MG TABLET (FP) PO PRN ×3 (06:27→21:43)
[2017-09-23] MEDS ORDERED: diazePAM 5 MG TABLET PO SCH (10:00)
[2017-09-23] MEDS: NICOTINE 14 MG/24 HOURS TOPICAL PATCH TD SCH (10:41)
[2017-09-23] MEDS: DULOXETINE HCL PO SCH (10:41)
[2017-09-23] MEDS: SULFAMETHOXAZOLE/TRIMETHOPRIM 800MG/160MG D.S. TABLET PO SCH (10:41)
[2017-09-23] MEDS: PRENATAL VITAMINS W/ FOLIC ACID TABLET (FP) PO SCH (10:41)
[2017-09-23] MEDS: CALCIUM 500MG/VIT-D 200 UNITS COMBO TABLET (FP) PO SCH ×2 (10:41→21:43)
[2017-09-23] MEDS: DARUNAVIR ETHANOLATE 600 MG TAB PO SCH ×2 (12:36→21:42)
[2017-09-23] MEDS: EMTRICITABINE 200MG/TENOFOVIR 300MG PO SCH (12:36)
[2017-09-23] MEDS: RITONAVIR 100 MG TABLET PO SCH ×2 (12:37→22:57)
--- NOTE | 2017-09-23 14:46 | PN ---
S Progress Note (SOAP) Subjective: alert,irritable,anxious,interrupted sleep Objective: 09/23/17 14:45 Vital Signs Temperature 98.1 F 09/23/17 09:23 Pulse Rate 61 09/23/17 09:23 Respiratory Rate 16 09/23/17 09:23 Blood Pressure 93/58 09/23/17 09:23 O2 Sat by Pulse Oximetry (%) Assessment: 09/23/17 14:45 withdrawal symptom Plan: continue detox,on one on one for safety of patient
[2017-09-23] MEDS: THIAMINE HCL 100 MG TABLET (FP) PO SCH (21:42)
[2017-09-23] MEDS: QUEtiapine FUMARATE 200 MG TABLET PO SCH (21:43)
[2017-09-24] MEDS: METHADONE HCL 40 MG DISPERSABLE TABLET PO SCH (06:05)
[2017-09-24] MEDS: SULFAMETHOXAZOLE/TRIMETHOPRIM 800MG/160MG D.S. TABLET PO SCH (09:56)
[2017-09-24] MEDS: IBUPROFEN 600 MG TABLET (FP) PO PRN ×2 (09:56→20:45)
[2017-09-24] MEDS: CALCIUM 500MG/VIT-D 200 UNITS COMBO TABLET (FP) PO SCH ×2 (09:56→22:39)
[2017-09-24] MEDS: DULOXETINE HCL PO SCH (09:56)
[2017-09-24] MEDS: DARUNAVIR ETHANOLATE 600 MG TAB PO SCH ×2 (09:56→22:39)
[2017-09-24] MEDS: PRENATAL VITAMINS W/ FOLIC ACID TABLET (FP) PO SCH (09:56)
[2017-09-24] MEDS: RITONAVIR 100 MG TABLET PO SCH ×2 (09:57→22:40)
[2017-09-24] MEDS: EMTRICITABINE 200MG/TENOFOVIR 300MG PO SCH (09:58)
[2017-09-24] MEDS: NICOTINE 14 MG/24 HOURS TOPICAL PATCH TD SCH (09:59)
--- NOTE | 2017-09-24 12:07 | PN ---
S Progress Note (SOAP) Subjective: feeling better today had shower with one assistance due to both wrists fx with hard casts ambulating around the [address] alert no acute distress Objective: 09/24/17 12:05 Vital Signs Temperature 97.5 F L 09/24/17 09:53 Pulse Rate 93 H 09/24/17 09:53 Respiratory Rate 16 09/24/17 09:53 Blood Pressure 107/75 09/24/17 09:53 O2 Sat by Pulse Oximetry (%) Laboratory Last Values WBC 3.9 K/mm3 (4.0-10.0) L 09/20/17 08:00 RBC 3.20 M/mm3 (3.60-5.2) L 09/20/17 08:00 Hgb 10.9 GM/dL (10.7-15.3) 09/20/17 08:00 Hct 32.1 % (32.4-45.2) L D 09/20/17 08:00 MCV 100.3 fl (80-96) H 09/20/17 08:00 MCH 34.0 pg (25.7-33.7) H 09/20/17 08:00 MCHC 33.9 g/dl (32.0-36.0) 09/20/17 08:00 RDW 13.4 % (11.6-15.6) 09/20/17 08:00 Plt Count 100 K/MM3 (134-434) L D 09/20/17 08:00 MPV 11.4 fl (7.5-11.1) H 09/20/17 08:00 Sodium 140 mmol/L (136-145) 09/20/17 08:00 Potassium 4.1 mmol/L (3.5-5.1) 09/21/17 07:40 Chloride 104 mmol/L (98-107) 09/20/17 08:00 Carbon Dioxide 25 mmol/L (21-32) 09/20/17 08:00 Anion Gap 11 (8-16) 09/20/17 08:00 BUN 24 mg/dL (7-18) H 09/20/17 08:00 Creatinine 0.8 mg/dL (0.55-1.02) 09/20/17 08:00 Creat Clearance w eGFR > 60 (>60) 09/20/17 08:00 Random Glucose 104 mg/dL (74-106) 09/20/17 08:00 Calcium 7.6 mg/dL (8.5-10.1) L 09/20/17 08:00 Total Bilirubin 0.6 mg/dL (0.2-1.0) 09/20/17 08:00 AST 44 U/L (15-37) H 09/20/17 08:00 ALT 49 U/L (12-78) 09/20/17 08:00 Alkaline Phosphatase 67 U/L (45-117) 09/20/17 08:00 Total Protein 6.3 g/dl (6.4-8.2) L 09/20/17 08:00 Albumin 3.2 g/dl (3.4-5.0) L 09/20/17 08:00 Urine Color Ltyellow 09/21/17 07:40 Urine Appearance Clear 09/21/17 07:40 Urine pH 7.0 (5.0-8.0) D 09/21/17 07:40 Ur Specific [place] 1.009 (1.001-1.035) 09/21/17 07:40 Urine Protein Negative (NEGATIVE) 09/21/17 07:40 Urine Glucose (UA) Negative (NEGATIVE) 09/21/17 07:40 Urine Ketones Negative (NEGATIVE) 09/21/17 07:40 Urine Blood Negative (NEGATIVE) 09/21/17 07:40 Urine Nitrite Negative (NEGATIVE) 09/21/17 07:40 Urine Bilirubin Negative (<2.0 mg/dL) 09/21/17 07:40 Urine Urobilinogen 2.0 mg/dL (0.2-1.0) H 09/21/17 07:40 Ur Leukocyte Esterase 2+ (NEGATIVE) H 09/21/17 07:40 Urine WBC (Auto) 5 /hpf (3-5) 09/21/17 07:40 Urine RBC (Auto) None /hpf (0-3) 09/21/17 07:40 Ur Epithelial Cells Rare /HPF (FEW) 09/21/17 07:40 RPR Titer Nonreactive (NONREACTIVE) 09/20/17 08:00 lab noted Assessment: 09/24/17 12:06 mild withdrawal sx uti wrists fx Plan: medically supervised detox 1:1 for close observation and assist ADL's
[2017-09-24] MEDS: ACETAMINOPHEN 325 MG TABLET (FP) PO PRN ×2 (13:55→22:39)
[2017-09-24] MEDS: QUEtiapine FUMARATE 200 MG TABLET PO SCH (22:40)
[2017-09-24] MEDS: THIAMINE HCL 100 MG TABLET (FP) PO SCH (22:40)
[2017-09-25] MEDS: METHADONE HCL 40 MG DISPERSABLE TABLET PO SCH (05:19)
[2017-09-25] MEDS: IBUPROFEN 600 MG TABLET (FP) PO PRN (05:20)
--- NOTE | 2017-09-25 08:53 | DS ---
[facility] Detox Discharge Summary Admission Date: 09/19/17 Discharge Date: 09/25/17 - History Present History: Sedative Dependence Additional Comments: 67 years old female admitted on 09/19/17 for benzo withdrawal sx completed benzo detox regimen tolerated well denies benzo withdrawal sx alert continue 1:1 for safety ammonia serum level pending aftercare [facility] Physical Exam Results Vital Signs: Vital Signs Temperature 97.3 F L 09/25/17 06:00 Pulse Rate 72 09/25/17 06:00 Respiratory Rate 18 09/25/17 06:00 Blood Pressure 112/83 09/25/17 06:00 O2 Sat by Pulse Oximetry (%) Pertinent Admission Physical Exam Findings: benzo withdrawal sx Vital Signs Temperature 97.3 F L 09/25/17 06:00 Pulse Rate 72 09/25/17 06:00 Respiratory Rate 18 09/25/17 06:00 Blood Pressure 112/83 09/25/17 06:00 O2 Sat by Pulse Oximetry (%) Laboratory Last Values WBC 3.9 K/mm3 (4.0-10.0) L 09/20/17 08:00 RBC 3.20 M/mm3 (3.60-5.2) L 09/20/17 08:00 Hgb 10.9 GM/dL (10.7-15.3) 09/20/17 08:00 Hct 32.1 % (32.4-45.2) L D 09/20/17 08:00 MCV 100.3 fl (80-96) H 09/20/17 08:00 MCH 34.0 pg (25.7-33.7) H 09/20/17 08:00 MCHC 33.9 g/dl (32.0-36.0) 09/20/17 08:00 RDW 13.4 % (11.6-15.6) 09/20/17 08:00 Plt Count 100 K/MM3 (134-434) L D 09/20/17 08:00 MPV 11.4 fl (7.5-11.1) H 09/20/17 08:00 Sodium 140 mmol/L (136-145) 09/20/17 08:00 Potassium 4.1 mmol/L (3.5-5.1) 09/21/17 07:40 Chloride 104 mmol/L (98-107) 09/20/17 08:00 Carbon Dioxide 25 mmol/L (21-32) 09/20/17 08:00 Anion Gap 11 (8-16) 09/20/17 08:00 BUN 24 mg/dL (7-18) H 09/20/17 08:00 Creatinine 0.8 mg/dL (0.55-1.02) 09/20/17 08:00 Creat Clearance w eGFR > 60 (>60) 09/20/17 08:00 Random Glucose 104 mg/dL (74-106) 09/20/17 08:00 Calcium 7.6 mg/dL (8.5-10.1) L 09/20/17 08:00 Total Bilirubin 0.6 mg/dL (0.2-1.0) 09/20/17 08:00 AST 44 U/L (15-37) H 09/20/17 08:00 ALT 49 U/L (12-78) 09/20/17 08:00 Alkaline Phosphatase 67 U/L (45-117) 09/20/17 08:00 Total Protein 6.3 g/dl (6.4-8.2) L 09/20/17 08:00 Albumin 3.2 g/dl (3.4-5.0) L 09/20/17 08:00 Urine Color Ltyellow 09/21/17 07:40 Urine Appearance Clear 09/21/17 07:40 Urine pH 7.0 (5.0-8.0) D 09/21/17 07:40 Ur Specific [place] 1.009 (1.001-1.035) 09/21/17 07:40 Urine Protein Negative (NEGATIVE) 09/21/17 07:40 Urine Glucose (UA) Negative (NEGATIVE) 09/21/17 07:40 Urine Ketones Negative (NEGATIVE) 09/21/17 07:40 Urine Blood Negative (NEGATIVE) 09/21/17 07:40 Urine Nitrite Negative (NEGATIVE) 09/21/17 07:40 Urine Bilirubin Negative (<2.0 mg/dL) 09/21/17 07:40 Urine Urobilinogen 2.0 mg/dL (0.2-1.0) H 09/21/17 07:40 Ur Leukocyte Esterase 2+ (NEGATIVE) H 09/21/17 07:40 Urine WBC (Auto) 5 /hpf (3-5) 09/21/17 07:40 Urine RBC (Auto) None /hpf (0-3) 09/21/17 07:40 Ur Epithelial Cells Rare /HPF (FEW) 09/21/17 07:40 RPR Titer Nonreactive (NONREACTIVE) 09/20/17 08:00 lab noted - Treatment Hospital Course: Detox Protocol Followed, Detoxed Safely, Responded well, Discharged Condition Good, Rehab Referral Accepted Patient has Accepted a Rehab Referral to: [facility] - Medication Discharge Medications: Ambulatory Orders Emtricitabine/Tenofovir [Truvada -] 1 tab PO DAILY #30 tablet 10/31/14 Ritonavir [Norvir -] 100 mg PO BID #60 tab 10/31/14 Duloxetine HCl [Cymbalta -] 90 mg PO DAILY #30 capsule. 04/26/17 Quetiapine Fumarate [Seroquel -] 300 mg PO HS #30 tablet 04/26/17 Darunavir Ethanolate [Prezista -] 600 mg PO BID #60 tab 05/14/17 Ritonavir [Norvir -] 100 mg PO BID #60 tab 05/14/17 Duloxetine HCl [Cymbalta -] 80 mg PO DAILY #120 capsule. 05/15/17 Lurasidone HCl [Latuda -] 40 mg PO DAILY #30 tablet 05/15/17 Quetiapine Fumarate [Seroquel -] 200 mg PO HS #30 tablet 05/15/17 Duloxetine HCl [Cymbalta -] 90 mg PO DAILY #30 capsule. 09/21/17 Methadone [Dolophine -] 80 mg PO DAILY@0600 09/21/17 Quetiapine Fumarate [Seroquel -] 200 mg PO HS #30 tablet 09/21/17 Sulfamethoxazole/Trimethoprim [Bactrim DS -] 1 tab PO DAILY #30 tablet 09/24/17 - Diagnosis (1) Sedative, hypnotic or anxiolytic dependence with withdrawal, uncomplicated Current Visit: Yes Status: Acute (2) HIV (human immunodeficiency virus infection) Current Visit: Yes Status: Chronic (3) Hepatitis C Current Visit: Yes Status: Resolved Qualifiers: Viral hepatitis chronicity: unspecified Hepatic coma status: without hepatic coma Qualified Code(s): B19.20 - Unspecified viral hepatitis C without hepatic coma (4) Methadone maintenance therapy patient Current Visit: Yes Status: Chronic (5) Nicotine dependence Current Visit: Yes Status: Acute Qualifiers: Nicotine product type: cigarettes Substance use status: in withdrawal Qualified Code(s): F17.213 - Nicotine dependence, cigarettes, with withdrawal (6) Distal radius fracture, left Current Visit: Yes Status: Acute Qualifiers: Encounter type: subsequent encounter Fracture type: closed Fracture morphology: Colles' Fracture healing: with routine healing Qualified Code(s) : S52.532D - Colles' fracture of left radius, subsequent encounter for closed fracture with routine healing (7) Distal radius fracture, right Current Visit: Yes Status: Acute Qualifiers: Encounter type: subsequent encounter Fracture type: closed Fracture morphology: Colles' Fracture healing: with routine healing Qualified Code(s) : S52.531D - Colles' fracture of right radius, subsequent encounter for closed fracture with routine healing (8) Fracture of ulnar styloid Current Visit: Yes Status: Acute Qualifiers: Encounter type: subsequent encounter Fracture type: closed Laterality: unspecified laterality Fracture healing: with routine healing (9) Bipolar II disorder Current Visit: Yes Status: Suspected (10) HIV disease Current Visit: Yes Status: Chronic - AMA Did Patient Leave Against Medical Advice: No
[2017-09-25 09:23] VITALS: BP 99/56; PULSE 85; TEMP 97.2
[2017-09-25] MEDS: RITONAVIR 100 MG TABLET PO SCH (09:52)
[2017-09-25] MEDS: DARUNAVIR ETHANOLATE 600 MG TAB PO SCH (09:52)
[2017-09-25] MEDS: SULFAMETHOXAZOLE/TRIMETHOPRIM 800MG/160MG D.S. TABLET PO SCH (09:52)
[2017-09-25] MEDS: EMTRICITABINE 200MG/TENOFOVIR 300MG PO SCH (09:52)
[2017-09-25] MEDS: PRENATAL VITAMINS W/ FOLIC ACID TABLET (FP) PO SCH (09:52)
[2017-09-25] MEDS: DULOXETINE HCL PO SCH (09:52)
[2017-09-25] MEDS: ACETAMINOPHEN 325 MG TABLET (FP) PO PRN (09:55)
[2017-09-25] MEDS: NICOTINE 14 MG/24 HOURS TOPICAL PATCH TD SCH (09:57)
[2017-09-25] MEDS: CALCIUM 500MG/VIT-D 200 UNITS COMBO TABLET (FP) PO SCH (10:15)
--- NOTE | 2017-09-25 14:13 | HP ---
[facility] Rehab Assess/Revision - Admission History Admitted to Rehab from: [facility] [place] Date of Admission to Rehab: 09/25/17 - Vital signs Vital Signs: Vital Signs Period Temp Pulse Resp BP Sys/[place] Pulse Ox Last 24 Hr 97.2 F-98.2 F 67-85 16-19 99-119/55-83 - Findings Detox History & Physical reviewed: Yes Concur with findings: Yes Comments/Additional Findings: transferred from detox to rehab admission as per protocol Inpatient Rehab Admission - Rehab Admission Criteria Previous failed treatment: Yes Poor recovery environment: Yes Comorbidities: Yes Lacks judgement: No Patient is meeting Inpatient Rehab admission criteria:: Yes
[2017-09-25] MEDS ORDERED: BACLOFEN 10 MG TABLET (FP) PO SCH (14:30)
[2017-09-25] MEDS ORDERED: NAPROXEN 375 MG TABLET (FP) PO SCH (22:00)
== END 2017-09-25 15:21 | disposition left against medical advice (07) | DRG 894 ==
LOC: YASAS 15:32 → Y6N 20:28 → Y3E 09-25 10:57
PROVIDERS: ADMIT Surgery; ATTEND Surgery
PROC: HZ2ZZZZ Detoxification Services for Substance Abuse Treatment (ICD-10-PCS; principal; 2017-09-19)
DX: F13.230 Sedative, hypnotic or anxiolytic dependence with withdrawal, uncomplicated (principal); F11.20 Opioid dependence, uncomplicated; F14.20 Cocaine dependence, uncomplicated; F31.81 Bipolar II disorder; F17.213 Nicotine dependence, cigarettes, with withdrawal; Z21 Asymptomatic human immunodeficiency virus [HIV] infection status; B19.20 Unspecified viral hepatitis C without hepatic coma; E83.50 Unspecified disorder of calcium metabolism; S52.532D Colles' fracture of left radius, subsequent encounter for closed fracture with routine healing; S52.531D Colles' fracture of right radius, subsequent encounter for closed fracture with routine healing; S52.613D Displaced fracture of unspecified ulna styloid process, subsequent encounter for closed fracture with routine healing; W18.39XD Other fall on same level, subsequent encounter; Z87.898 Personal history of other specified conditions
CPT/HCPCS: 36415; 73110-TC-LR-FY; 73110-TC-RT-FY; 73130-TC-LR-FY; 73130-TC-RT-FY; 80053; 81003; 81015; 82140; 84132; 85027; 86593; 93005; 93010; 99283-25; J0475

== ENCOUNTER 2018-03-08 11:56 | Inpatient (IN) | payer OTHER ==
[2018-03-08 12:05] VITALS: BMI 26.1
--- NOTE | 2018-03-08 13:07 | HP ---
"CIWA Score - Admission Criteria [facility] Guidelines: Admission for Medically Managed Detox: Requires at least one of the followin. CIWA greater than 12 2. Seizures within the past 24 hours 3. Delirium tremens within the past 24 hours 4. Hallucinations within the past 24 hours 5. Acute intervention needed for co occurring medical disorder 6. Acute intervention needed for co occurring psychiatric disorder 7. Severe withdrawal that cannot be handled at a lower level of care (continued vomiting, continued diarrhea, abnormal vital signs) requiring intravenous medication and/or fluids 8. Admission ROS [facility] Allergies/Adverse Reactions: Allergies Allergy/AdvReac Type Severity Reaction Status Date / Time lamotrigine [From Lamictal] Allergy Severe Rash Verified 03/08/18 12:07 History of Present Illness: patient here requesting detox from benzodiazepine use , reports 8.5 /day of 2 mg each x 6 months , latest use yesterday ,reports nausea/ vomiting if not using , + withdrawal seizures , most recently 6 months ago . on MMTP since 1987 at [facility] , on take-home x 3 d , goes to clinic 4 d/ week , current 110 mg q d , highest dose 180 mg years ago at [facility] . utox + MTD , BZO etoh - denies tobacco -6-7 cigs/day , does not want nrt PMHX : HIV + ( dx 1999 RF= ST ) ID clinic [facility] gave her appt at [facility] clinic did not go as of yet, latest taken this morning , receives from ACT team , HEP C ( dx 1982 , tx 1982 , RF= ST ) denies IVDU PSHx :right arm debridement (1999) PSych : bipolar d/o on Cymbalta meds : Prezista bid , Truvada bid . SHx : lives in [place] , [place] This report was requested by: Nida Rome | Reference #: [id number] Others' Prescriptions Patient Name: Lanette Olivarez Date: 1950 Address: [address] [place] [id number] Sex: Female Rx Written Rx Dispensed Drug Quantity Days Supply Prescriber Name 11/13/2017 11/14/2017 clonazepam 0.5 mg tablet 90 30 Hannah Sarah MD Patient Name: Lanette Olivarez Date: 1950 Address: [address] [place] [id number] Sex: Female Rx Written Rx Dispensed Drug Quantity Days Supply Prescriber Name 03/15/2017 03/16/2017 clonazepam 1 mg tablet 60 30 Zoie Dutta) Exam Limitations: Clinical Condition - Ebola screening Have you traveled outside of the country in the last 21 days: No Have you had contact with anyone from an Ebola affected area: No Have you been sick,other than usual withdrawal symptoms: No Do you have a fever: No - Review of Systems Constitutional: See HPI, Loss of Appetite EENT: reports: Other (myopia , no teeth) Respiratory: reports: No Symptoms reported Cardiac: reports: No Symptoms Reported GI: reports: Abd. Pain w/ defecation : reports: No Symptoms Reported Musculoskeletal: reports: No Symptoms Reported Integumentary: reports: No Symptoms Reported Neuro: reports: No Symptoms reported Endocrine: reports: No Symptoms Reported Psychiatric: reports: Orientated x3, Anxious Patient History - Patient Medical History Hx Anemia: No Hx Asthma: No Hx Chronic Obstructive Pulmonary Disease (COPD): No Hx Cancer: No Hx Cardiac Disorders: No Hx Congestive Heart Failure: No Hx Hypertension: No Hx Hypercholesterolemia: No Hx Pacemaker: No HX Cerebrovascular Accident: No Hx Seizures: Yes (xanax related last 6 months ago) Hx Dementia: No Hx Diabetes: No Hx Gastrointestinal Disorders: No Hx Liver Disease: Yes (Hep C) Hx Genitourinary Disorders: No Hx Sexually Transmitted Disorders: No Hx Renal Disease (ESRD): No Hx Thyroid Disease: No Hx Human Immunodeficiency Virus (HIV): Yes (since 2000;NORVIR, PREZISTA;TRUVADA) Hx Hepatitis C: Yes (1987) Hx Depression: Yes Hx Suicide Attempt: Yes (Pt states she tried to overdose 3 months ago) Hx Bipolar Disorder: Yes Hx Schizophrenia: No - Patient Surgical History Past Surgical History: No Hx Neurologic Surgery: No Hx Cataract Extraction: No Hx Cardiac Surgery: No Hx Lung Surgery: No Hx Breast Surgery: No Hx Breast Biopsy: No Hx Abdominal Surgery: No Hx Appendectomy: No Hx Cholecystectomy: No Hx Genitourinary Surgery: No Hx Section: No Hx Orthopedic Surgery: Yes (LOWER BACK SX WITH 4 PLATES IN 03/07/2016) Hx Hysterectomy: No Other Surgical History: Fx bilateral wrist sx. Anesthesia Reaction: No - PPD History Previous Implant?: Yes Documented Results: Negative w/o proof Implanted On Prior [facility] Admission?: Yes Date: 12/30/16 Results: 0MM - Reproductive History Patient : No - Smoking Cessation Smoking history: Current every day smoker Have you smoked in the past 12 months: Yes Aproximately how many cigarettes per day: 7 Cigars Per Day: 0 Hx Chewing Tobacco Use: No Initiated information on smoking cessation: No - Substances Abused XANAX Route: Oral Frequency: Daily Amount used: 10MG Age of first use: 32 Date of Last Use: 03/08/18 Family Disease History - Family Disease History Family Disease History: Other: Brother (dsa), Sister (alcohol,dsa) Admission Physical Exam [facility] - Vital Signs Vital Signs: Vital Signs - 24 hr 03/08/18 03/08/18 12:03 12:04 Temperature 96.2 F L 96.0 F L Pulse Rate 81 Respiratory 17 Rate Blood Pressure 97/51 L - Physical General Appearance: Yes: Disheveled, Moderate Distress, Anxious, Other (drowsy , falls asleep frequently during interview , easily awakened by verbal stimuli) HEENTM: Yes: EOMI, Hearing grossly Normal, Normocephalic, Normal Voice, Pharynx Normal, Other (edentulous) Respiratory: Yes: Chest Non-Tender, No Respiratory Distress, No Accessory Muscle Use, Rhonchi (LLL) Neck: Yes: No masses,lesions,Nodules Breast: Yes: Breast Exam Deferred Cardiology: Yes: Regular Rhythm, Regular Rate, S1, S2 Abdominal: Yes: Normal Bowel Sounds, Non Tender, Soft Genitourinary: Yes: Within Normal Limits Back: Yes: Normal Inspection Musculoskeletal: Yes: full range of Motion, Other (unsteady gait) Extremities: Yes: Normal Capillary Refill, Normal Inspection, Tremors 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: Yes: Motor Strength 5/5, Normal Mood/Affect Integumentary: Yes: Normal Color, Dry, Warm, Other (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
[2018-03-08] MEDS ORDERED: chlordiazePOXIDE HCL 25 MG CAPSULE PO PRN (13:16)
[2018-03-08] MEDS ORDERED: guaiFENesin/D-METHORPHAN HB 10 ML UNIT-DOSE CUPS PO PRN (13:16)
[2018-03-08] MEDS ORDERED: ACETAMINOPHEN 325 MG TABLET (FP) PO PRN (13:16)
[2018-03-08] MEDS ORDERED: MAGNESIUM CITRATE 300 ML BOTTLE PO PRN (13:16)
[2018-03-08] MEDS ORDERED: P-EPHED 60MG/TRIPROLIDI 2.5MG TABLET PO PRN (13:16)
[2018-03-08] MEDS ORDERED: MAGNESIUM HYDROX 2400MG/30ML ORAL SUSPENSION 30 ML CUP PO PRN (13:16)
[2018-03-08] MEDS ORDERED: IBUPROFEN 400 MG TABLET (FP) PO PRN (13:16)
[2018-03-08] MEDS ORDERED: MENTHOL/PHENOL 1 EACH UD MM PRN (13:16)
[2018-03-08] MEDS ORDERED: MAG HYDROX/AL HYDROX/SIMETH 30 ML UNIT-DOSE CUP PO PRN (13:16)
[2018-03-08] MEDS ORDERED: chlordiazePOXIDE HCL 25 MG CAPSULE PO SCH (17:00)
[2018-03-08] MEDS: diazePAM 5 MG TABLET PO PRN (17:34)
[2018-03-08] MEDS ORDERED: MELATONIN 5 MG TABLETS PO PRN (22:00)
[2018-03-08] MEDS: THIAMINE HCL 100 MG TABLET (FP) PO SCH (22:08)
[2018-03-08] MEDS: diazePAM 5 MG TABLET PO SCH (22:09)
[2018-03-09] MEDS: diazePAM 5 MG TABLET PO PRN ×3 (01:12→16:50)
[2018-03-09] MEDS: METHADONE HCL 40 MG DISPERSABLE TABLET PO SCH (05:48)
[2018-03-09] MEDS: diazePAM 5 MG TABLET PO SCH ×3 (05:48→22:03)
[2018-03-09] MEDS: PRENATAL VITAMINS W/ FOLIC ACID TABLET (FP) PO SCH (10:15)
[2018-03-09 10:57] LABS: HEMATOCRIT 39.8 % (32.4-45.2); HEMOGLOBIN 12.6 GM/dL (10.7-15.3); MCHC 31.6 g/dl (32.0-36.0); MEAN PLT VOLUME 11.5 fl (7.5-11.1); PLATELET COUNT 110 K/MM3 (134-434); RBC 4.06 M/mm3 (3.60-5.2); RDW 16.3 % (11.6-15.6); WHITE BLOOD COUNT 3.2 K/mm3 (4.0-10.0)
[2018-03-09 11:01] LABS: ALBUMIN 3.7 g/dl (3.4-5.0); ALK PHOS 80 U/L (45-117); ANION GAP 7 MMOL/L (8-16); BILIRUBIN,TOTAL 0.6 mg/dL (0.2-1); BLOOD UREA NITROGEN 14 mg/dL (7-18); CHLORIDE 104 mmol/L (98-107); CO2 26 mmol/L (21-32); CREATININE 0.7 mg/dL (0.55-1.3); GLUCOSE,RANDOM 132 mg/dL (74-106); POTASSIUM 4.3 mmol/L (3.5-5.1); SGOT/AST 51 U/L (15-37); SGPT/ALT 49 U/L (13-61); SODIUM 137 mmol/L (136-145); TOT PROT 7.4 g/dl (6.4-8.2)
--- NOTE | 2018-03-09 11:27 | PN ---
[facility] CIWA - CIWA Score Nausea/Vomitin-Mild Nausea/No Vomiting Muscle Tremors: 1-None Visible, but [place] Anxiety: 3 Agitation: 4-Moderately Restless Paroxysmal Sweats: 1-Minimal Palms Moist Orientation: 0-Oriented Tacttile Disturbances: 2-Mild Itch/Numbness/Burn Auditory Disturbances: 0-None Visual Disturbances: 0-None Headache: 0-None Present CIWA-Ar Total Score: 12 BHS Progress Note (SOAP) Subjective: PATIENT C/O ANXIETY, SHAKES, NIGHT SWEATS AND NAUSEA. Objective: 03/09/18 11:26 Laboratory Tests 03/09/18 05:45 Sodium 137 Potassium 4.3 Chloride 104 Carbon Dioxide 26 Anion Gap 7 L BUN 14 Creatinine 0.7 Creat Clearance w eGFR > 60 Random Glucose 132 H Calcium 9.0 Total Bilirubin 0.6 AST 51 H ALT 49 Alkaline Phosphatase 80 Total Protein 7.4 Albumin 3.7 Vital Signs Temperature 96.7 F L 03/09/18 09:53 Pulse Rate 79 03/09/18 09:53 Respiratory Rate 18 03/09/18 09:53 Blood Pressure 112/79 03/09/18 09:53 O2 Sat by Pulse Oximetry (%) PE: ALERT AND ORIENTED X 3 SKIN WARM, MILD MOISTURE TO PALMS EXT FULL ROM, MILD TREMORS, AMB AD AMADOR ANXIOUS, PACING ON UNIT Assessment: 03/09/18 11:27 WITHDRAWAL SX Plan: CONTINUE DETOX ENCOURAGE ORAL FLUIDS MONITOR CLINICALLY
[2018-03-09] MEDS ORDERED: FLU VACCINE QUAD 60 MCG/0.5 ML (MDV 18-19) IM ONE (12:00)
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
[2018-03-09] MEDS ORDERED: chlordiazePOXIDE HCL 25 MG CAPSULE PO SCH (17:00)
[2018-03-09] MEDS: QUEtiapine FUMARATE 100 MG TABLET (FP) PO SCH (22:03)
[2018-03-09] MEDS: THIAMINE HCL 100 MG TABLET (FP) PO SCH (22:03)
[2018-03-10] MEDS: diazePAM 5 MG TABLET PO PRN ×4 (02:14→18:36)
[2018-03-10] MEDS: METHADONE HCL 40 MG DISPERSABLE TABLET PO SCH (06:03)
[2018-03-10] MEDS: diazePAM 5 MG TABLET PO SCH ×2 (10:11→22:25)
[2018-03-10] MEDS: PRENATAL VITAMINS W/ FOLIC ACID TABLET (FP) PO SCH (10:11)
--- NOTE | 2018-03-10 13:21 | PN ---
S CIWA - CIWA Score Nausea/Vomitin Muscle Tremors: 2 Anxiety: 2 Agitation: 2 Paroxysmal Sweats: 1-Minimal Palms Moist Orientation: 0-Oriented Tacttile Disturbances: 1-Very Mild Itch/Numbness Auditory Disturbances: 1-Very Mild Visual Disturbances: 0-None Headache: 2-Mild CIWA-Ar Total Score: 13 BHS Progress Note (SOAP) Subjective: alert,irritable,anxious,interrupted sleep,tremor Objective: 03/10/18 13:20 Vital Signs Temperature 97.0 F L 03/10/18 09:39 Pulse Rate 80 03/10/18 09:39 Respiratory Rate 16 03/10/18 09:39 Blood Pressure 96/66 03/10/18 09:39 O2 Sat by Pulse Oximetry (%) 03/10/18 13:20 Laboratory Last Values WBC 3.2 K/mm3 (4.0-10.0) L 03/09/18 05:45 RBC 4.06 M/mm3 (3.60-5.2) 03/09/18 05:45 Hgb 12.6 GM/dL (10.7-15.3) 03/09/18 05:45 Hct 39.8 % (32.4-45.2) D 03/09/18 05:45 MCV 98.0 fl (80-96) H 03/09/18 05:45 MCH 31.0 pg (25.7-33.7) 03/09/18 05:45 MCHC 31.6 g/dl (32.0-36.0) L 03/09/18 05:45 RDW 16.3 % (11.6-15.6) H 03/09/18 05:45 Plt Count 110 K/MM3 (134-434) L 03/09/18 05:45 MPV 11.5 fl (7.5-11.1) H 03/09/18 05:45 Sodium 137 mmol/L (136-145) 03/09/18 05:45 Potassium 4.3 mmol/L (3.5-5.1) 03/09/18 05:45 Chloride 104 mmol/L (98-107) 03/09/18 05:45 Carbon Dioxide 26 mmol/L (21-32) 03/09/18 05:45 Anion Gap 7 MMOL/L (8-16) L 03/09/18 05:45 BUN 14 mg/dL (7-18) 03/09/18 05:45 Creatinine 0.7 mg/dL (0.55-1.3) 03/09/18 05:45 Creat Clearance w eGFR > 60 (>60) 03/09/18 05:45 Random Glucose 132 mg/dL (74-106) H 03/09/18 05:45 Calcium 9.0 mg/dL (8.5-10.1) 03/09/18 05:45 Total Bilirubin 0.6 mg/dL (0.2-1) 03/09/18 05:45 AST 51 U/L (15-37) H 03/09/18 05:45 ALT 49 U/L (13-61) 03/09/18 05:45 Alkaline Phosphatase 80 U/L (45-117) 03/09/18 05:45 Total Protein 7.4 g/dl (6.4-8.2) 03/09/18 05:45 Albumin 3.7 g/dl (3.4-5.0) 03/09/18 05:45 RPR Titer Nonreactive (NONREACTIVE) 03/09/18 05:45 Assessment: 03/10/18 13:21 withdrawal symptom Plan: continue detox,fasting glucose in am
[2018-03-10] MEDS ORDERED: chlordiazePOXIDE 5 MG CAPSULE PO SCH (17:00)
[2018-03-10] MEDS: QUEtiapine FUMARATE 100 MG TABLET (FP) PO SCH (22:25)
[2018-03-10] MEDS: THIAMINE HCL 100 MG TABLET (FP) PO SCH (22:25)
[2018-03-11] MEDS: METHADONE HCL 40 MG DISPERSABLE TABLET PO SCH (05:24)
[2018-03-11] MEDS: diazePAM 5 MG TABLET PO PRN (05:25)
[2018-03-11 06:24] VITALS: BP 92/62; PULSE 69; TEMP 96.3
--- NOTE | 2018-03-11 12:27 | DS ---
[facility] Detox Discharge Summary Admission Date: 03/08/18 Discharge Date: 03/11/18 - History Present History: Cocaine Dependence, Sedative Dependence, MMTP Additional Comments: Patient demanded to leave AMA stating that she is feeling much better and not having anymore withdrawal symptoms. As per patient, she has things to do and just wants to leave. Patient refused to stay and complete detox despite encouragement from staff. Patient instructed to call 911 if feeling sick or any withdrawal symptoms and to see her PCP within 3 days. Patient is A, A, Ox3, in nad, ambulating freely. Pertinent Past History: Cocaine use disorder Sedative dependence Opioid dependence on agonist Hepatitis C Nicotine dependence HIV Bipolar disorder - Physical Exam Results Vital Signs: Vital Signs Temperature 96.3 F L 03/11/18 06:24 Pulse Rate 69 03/11/18 06:24 Respiratory Rate 18 03/11/18 06:24 Blood Pressure 92/62 03/11/18 06:24 O2 Sat by Pulse Oximetry (%) Hypotension noted: asymptomatic (patient denied any complaints, instructed to drink plenty of water for hydration) Pertinent Admission Physical Exam Findings: Withdrawal symptoms Laboratory Tests 03/09/18 03/09/18 03/09/18 05:45 05:45 05:45 WBC 3.2 L RBC 4.06 Hgb 12.6 Hct 39.8 D MCV 98.0 H MCH 31.0 MCHC 31.6 L RDW 16.3 H Plt Count 110 L MPV 11.5 H Sodium 137 Potassium 4.3 Chloride 104 Carbon Dioxide 26 Anion Gap 7 L BUN 14 Creatinine 0.7 Creat Clearance w eGFR > 60 Random Glucose 132 H Calcium 9.0 Total Bilirubin 0.6 AST 51 H ALT 49 Alkaline Phosphatase 80 Total Protein 7.4 Albumin 3.7 RPR Titer Nonreactive Labs reviewed: hyperglycemia noted, denies DM (patient to follow up with PCP within 3 days) - Medication Discharge Medications: Ambulatory Orders Emtricitabine/Tenofovir [Truvada -] 1 tab PO DAILY #30 tablet 10/31/14 Darunavir Ethanolate [Prezista -] 600 mg PO BID #60 tab 05/14/17 Ritonavir [Norvir -] 100 mg PO BID #60 tab 05/14/17 Duloxetine HCl [Cymbalta -] 80 mg PO DAILY #120 capsule. 05/15/17 Quetiapine Fumarate [Seroquel -] 200 mg PO HS #30 tablet 09/21/17 Sulfamethoxazole/Trimethoprim [Bactrim DS -] 1 tab PO DAILY #30 tablet 09/24/17 - Diagnosis (1) Seizure Status: Chronic (2) Sedative, hypnotic or anxiolytic dependence with withdrawal, uncomplicated Status: Acute (3) Bipolar disorder Status: Chronic (4) Cocaine dependence Status: Chronic Qualifiers: (5) HIV (human immunodeficiency virus infection) Status: Chronic (6) Nicotine dependence Status: Chronic Qualifiers: Nicotine product type: cigarettes (7) Opioid dependence on agonist therapy Status: Acute (8) Hepatitis C Status: Chronic Qualifiers: Viral hepatitis chronicity: unspecified Hepatic coma status: without hepatic coma Qualified Code(s): B19.20 - Unspecified viral hepatitis C without hepatic coma (9) Swift-Isauro syndrome Status: Resolved (10) Hyperglycemia Status: Acute (11) Hypotension Status: Acute - AMA Did Patient Leave Against Medical Advice: Yes (Instructed to call 911 if feeling sick or any withdrawal symptoms)
[2018-03-11] MEDS ORDERED: chlordiazePOXIDE HCL 10 MG CAPSULE PO SCH (17:00)
[2018-03-12] MEDS ORDERED: diazePAM 5 MG TABLET PO SCH (10:00)
== END 2018-03-11 09:07 | disposition left against medical advice (07) | DRG 894 ==
LOC: YASAS 11:56 → Y3N 14:09
PROC: HZ2ZZZZ Detoxification Services for Substance Abuse Treatment (ICD-10-PCS; principal; 2018-03-08)
DX: F13.230 Sedative, hypnotic or anxiolytic dependence with withdrawal, uncomplicated (principal); F14.20 Cocaine dependence, uncomplicated; F11.20 Opioid dependence, uncomplicated; F17.210 Nicotine dependence, cigarettes, uncomplicated; F31.9 Bipolar disorder, unspecified; Z21 Asymptomatic human immunodeficiency virus [HIV] infection status; I95.9 Hypotension, unspecified; R73.9 Hyperglycemia, unspecified; B18.2 Chronic viral hepatitis C; Z86.69 Personal history of other diseases of the nervous system and sense organs; Z91.5 Personal history of self-harm
CPT/HCPCS: 36415; 71045-TC-FY; 80053; 85027; 86593; 90688; G0008

== ENCOUNTER 2018-04-12 11:40 | Inpatient (IN) | payer OTHER ==
[2018-04-12 12:09] VITALS: BMI 25.8
--- NOTE | 2018-04-12 12:56 | HP ---
CIWA Score Nausea/Vomitin-No Nausea/No Vomiting Muscle Tremors: 4-Moderate,w/Arms Extend Anxiety: 4-Mod. Anxious/Guarded Agitation: 4-Moderately Restless Paroxysmal Sweats: 3 Orientation: 0-Oriented Tacttile Disturbances: 0-None Auditory Disturbances: 0-None Visual Disturbances: 0-None Headache: 1-Very Mild CIWA-Ar Total Score: 16 - Admission Criteria OASAS Guidelines: Admission for Medically Managed Detox: Requires at least one of the followin. CIWA greater than 12 2. Seizures within the past 24 hours 3. Delirium tremens within the past 24 hours 4. Hallucinations within the past 24 hours 5. Acute intervention needed for co occurring medical disorder 6. Acute intervention needed for co occurring psychiatric disorder 7. Severe withdrawal that cannot be handled at a lower level of care (continued vomiting, continued diarrhea, abnormal vital signs) requiring intravenous medication and/or fluids 8. Admission ROS S - HPI Chief Complaint: I need to get help and get to go to rehab. Allergies/Adverse Reactions: Allergies Allergy/AdvReac Type Severity Reaction Status Date / Time lamotrigine [From Lamictal] Allergy Severe Rash / Verified 04/12/18 12:07 Uday Isauro syndrome History of Present Illness: pt is a 67yr old female seeking detox for benzodiazapine dependence seeking treatment. Exam Limitations: No Limitations - Ebola screening Have you traveled outside of the country in the last 21 days: No Have you had contact with anyone from an Ebola affected area: No Have you been sick,other than usual withdrawal symptoms: No Do you have a fever: No - Review of Systems Constitutional: Diaphoresis, Loss of Appetite, Night Sweats, Changes in sleep, Unintentional Wgt. Loss EENT: reports: Tearing, Nose Congestion Respiratory: reports: No Symptoms reported Cardiac: reports: No Symptoms Reported GI: reports: Poor Appetite, Poor Fluid Intake : reports: No Symptoms Reported Musculoskeletal: reports: No Symptoms Reported Integumentary: reports: Flushing, Sweating Neuro: reports: Headache, Seizure (last benzo related seizure was a year ago.), Tingling, Tremors Endocrine: reports: Excessive Sweating, Flushing, Intolerance to Cold, Intolerance to Heat Hematology: reports: No Symptoms Reported Psychiatric: reports: Judgement Intact, Mood/Affect Appropiate, Orientated x3, Agitated, Anxious Other Systems: Reviewed and Negative Patient History - Patient Medical History Hx Anemia: No Hx Asthma: No Hx Chronic Obstructive Pulmonary Disease (COPD): No Hx Cancer: No Hx Cardiac Disorders: No Hx Congestive Heart Failure: No Hx Hypertension: No Hx Hypercholesterolemia: No Hx Pacemaker: No HX Cerebrovascular Accident: No Hx Seizures: Yes (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 was in 04/2017) Hx Dementia: No Hx Diabetes: No Hx Gastrointestinal Disorders: No Hx Liver Disease: Yes (Hep C) Hx Genitourinary Disorders: No Hx Sexually Transmitted Disorders: No Hx Renal Disease (ESRD): No Hx Thyroid Disease: No Hx Human Immunodeficiency Virus (HIV): Yes (since 2000;NORVIR, PREZISTA;TRUVADA) Hx Hepatitis C: Yes (1987) Hx Depression: Yes Hx Suicide Attempt: Yes (pill overdose in 03/19/2018) Hx Bipolar Disorder: Yes Hx Schizophrenia: No - Patient Surgical History Past Surgical History: No Hx Neurologic Surgery: No Hx Cataract Extraction: No Hx Cardiac Surgery: No Hx Lung Surgery: No Hx Breast Surgery: No Hx Breast Biopsy: No Hx Abdominal Surgery: No Hx Appendectomy: No Hx Cholecystectomy: No Hx Genitourinary Surgery: No Hx Section: No Hx Orthopedic Surgery: Yes (LOWER BACK SX WITH 4 PLATES IN 03/07/2016) Hx Hysterectomy: No Other Surgical History: Fx bilateral wrist sx. Anesthesia Reaction: No - PPD History Previous Implant?: Yes Documented Results: Negative w/o proof Implanted On Prior R Admission?: Yes PPD to be Administered?: Yes - Reproductive History Patient is a Female of Child Bearing Age (11 -55 yrs old): No Patient : No - Smoking Cessation Smoking history: Current every day smoker Have you smoked in the past 12 months: Yes Aproximately how many cigarettes per day: 7 Cigars Per Day: 0 Hx Chewing Tobacco Use: No Initiated information on smoking cessation: Yes 'Breaking Loose' booklet given: 04/12/18 - Substance & Tx. History Hx Alcohol Use: No Hx Substance Use: Yes Substance Use Type: Cocaine Hx Substance Use Treatment: Yes (last detox 02/2018) - Substances Abused Crack Route: Smoking Frequency: 1-3 times last 30 days Amount used: $50 Age of first use: 37 Date of Last Use: 04/09/18 Xanax or Klonopin Route: Oral Frequency: Daily Amount used: 8 mg./12 mg. Age of first use: 37 Date of Last Use: 04/12/18 Family Disease History - Family Disease History Family Disease History: Other: Brother (dsa), Sister (alcohol,dsa) Admission Physical Exam [facility] - Vital Signs Vital Signs: Vital Signs - 24 hr 04/12/18 12:07 Temperature 96.2 F L Pulse Rate 71 Respiratory 18 Rate Blood Pressure 128/75 - Physical General Appearance: Yes: Appropriately Dressed, Mild Distress, Tremorous, Irritable, Sweating, Anxious HEENTM: Yes: Hearing grossly Normal, Normal Voice, Nasal Congestion, Rhinorrhea Respiratory: Yes: Lungs Clear, Normal Breath Sounds, No Respiratory Distress Neck: Yes: No masses,lesions,Nodules Breast: Yes: Within Normal Limits Cardiology: Yes: Regular Rhythm, Regular Rate, S1, S2 Abdominal: Yes: Normal Bowel Sounds, Non Tender, Soft Genitourinary: Yes: Within Normal Limits Back: Yes: Normal Inspection Musculoskeletal: Yes: Within Normal Limits, Gait Steady, Back pain Extremities: Yes: Normal Capillary Refill, Normal Inspection, Non-Tender, Tremors 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: Yes: Fully Oriented, Alert, Normal Response Integumentary: Yes: Normal Color, Diaphoresis Lymphatic: Yes: Within Normal Limits - Diagnostic (1) Bipolar 1 disorder Current Visit: Yes Status: Chronic (2) Sedative, hypnotic or anxiolytic dependence with withdrawal, uncomplicated Current Visit: Yes Status: Chronic (3) Weight loss Current Visit: Yes Status: Chronic (4) Cocaine dependence Current Visit: Yes Status: Chronic Qualifiers: Substance use status: uncomplicated Qualified Code(s): F14.20 - Cocaine dependence, uncomplicated (5) HIV (human immunodeficiency virus infection) Current Visit: Yes Status: Chronic Qualifiers: HIV symptom status: unspecified Qualified Code(s): B20 - Human immunodeficiency virus [HIV] disease (6) Hepatitis C Current Visit: Yes Status: Chronic Qualifiers: Viral hepatitis chronicity: chronic Hepatic coma status: without hepatic coma Qualified Code(s): B18.2 - Chronic viral hepatitis C (7) Methadone maintenance therapy patient Current Visit: Yes Status: Chronic Comment: Patient on 80 mg qd, dose pending verification (8) Nicotine dependence Current Visit: Yes Status: Chronic Qualifiers: Nicotine product type: cigarettes Substance use status: uncomplicated Qualified Code(s): F17.210 - Nicotine dependence, cigarettes, uncomplicated (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
[2018-04-12] MEDS ORDERED: hydrOXYzine PAMOATE 50 MG CAPSULE (FP) PO PRN (13:19)
[2018-04-12] MEDS ORDERED: guaiFENesin/D-METHORPHAN HB 10 ML UNIT-DOSE CUPS PO PRN (13:19)
[2018-04-12] MEDS ORDERED: NICOTINE POLACRILEX 4 MG GUM BC PRN (13:19)
[2018-04-12] MEDS ORDERED: MAG HYDROX/AL HYDROX/SIMETH 30 ML UNIT-DOSE CUP PO PRN (13:19)
[2018-04-12] MEDS ORDERED: ACETAMINOPHEN 325 MG TABLET (FP) PO PRN (13:19)
[2018-04-12] MEDS ORDERED: LOPERAMIDE HCL 2 MG CAPSULE PO PRN (13:19)
[2018-04-12] MEDS ORDERED: MAGNESIUM HYDROX 2400MG/30ML ORAL SUSPENSION 30 ML CUP PO PRN (13:19)
[2018-04-12] MEDS ORDERED: IBUPROFEN 400 MG TABLET (FP) PO PRN (13:19)
[2018-04-12] MEDS ORDERED: P-EPHED 60MG/TRIPROLIDI 2.5MG TABLET PO PRN (13:19)
[2018-04-12] MEDS ORDERED: MENTHOL/PHENOL 1 EACH UD MM PRN (13:19)
[2018-04-12] MEDS ORDERED: MAGNESIUM CITRATE 300 ML BOTTLE PO PRN (13:19)
[2018-04-12] MEDS ORDERED: diazePAM 5 MG TABLET PO ONE (14:00)
--- NOTE | 2018-04-12 14:15 | CONSULT ---
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 Substance Abuse History: Smoking history: Current every day smoker. Have you smoked in the past 12 months: Yes. Aproximately how many cigarettes per day: 7. Cigars Per Day: 0. Hx Chewing Tobacco Use: No. Initiated information on smoking cessation: Yes. 'Breaking Loose' booklet given: 04/12/18. - Substance & Tx. History. Hx Alcohol Use: No. Hx Substance Use: Yes. Substance Use Type : Cocaine. Hx Substance Use Treatment: Yes (last detox 02/2018). - Substances Abused. Crack. Route: Smoking. Frequency: 1-3 times last 30 days. Amount used: $50. Age of first use: 37. Date of Last Use: 04/09/18. Xanax or Klonopin. Route: Oral. Frequency: Daily. Amount used: 8 mg./12 mg. Age of first use: 37. Date of Last Use: 04/12/18 Medical History: Weight loss history, HIV+, HepC+, Stivens Isauro Syndrom historyMMTP 90mg pwer day Psychiatric History: Patient reports history of Bipolar Disorder with most recent psychiatric hospitalization on 02/2018 at [facility] after suicidal attempt by OD with psychiatric medications. Patient reports history of 7 suicidal attempts since 20 years old until 02/2018, reports no suicidal ideation at this time. Patient reports rtaking prior to admission: Seroquel 300mg po qhs. Cymbalta 80mg poqd. Currently on MMTP 90 mg per day. Physical/Sexual Abuse/Trauma History: Unclear Additional Comment: Seroquel 300mg po qhs. Cymbalta 80mg poqd Mental Status Exam - Mental Status Exam Alert and Oriented to: Place, Person Cognitive Function: Fair Patient Appearance: Well Groomed Mood: Anxious Affect: Mood Congruent Patient Behavior: Cooperative Speech Pattern: Appropriate Voice Loudness: Normal Thought Process: Goal Oriented Thought Disorder: Being Controlled Hallucinations: Denies Suicidal Ideation: Denies Homicidal Ideation: Denies Insight/Judgement: Fair Sleep: Difficulty falling asleep Appetite: Weight loss Muscle strength/Tone: Normal Gait/Station: Normal Additional Comments: Seroquel 300mg po qhs. Cymbalta 80mg poqd Psychiatric Findings - Problem List ([place] 1, 2,3) (1) Bipolar 1 disorder Current Visit: Yes Status: Chronic (2) Cocaine dependence Current Visit: Yes Status: Chronic Qualifiers: Substance use status: uncomplicated Qualified Code(s): F14.20 - Cocaine dependence, uncomplicated (3) HIV (human immunodeficiency virus infection) Current Visit: Yes Status: Chronic Qualifiers: HIV symptom status: unspecified Qualified Code(s): B20 - Human immunodeficiency virus [HIV] disease (4) Hepatitis C Current Visit: Yes Status: Chronic Qualifiers: Viral hepatitis chronicity: chronic Hepatic coma status: without hepatic coma Qualified Code(s): B18.2 - Chronic viral hepatitis C (5) Methadone maintenance therapy patient Current Visit: Yes Status: Chronic Comment: Patient on 80 mg qd, dose pending verification (6) Nicotine dependence Current Visit: Yes Status: Chronic Qualifiers: Nicotine product type: cigarettes Substance use status: uncomplicated Qualified Code(s): F17.210 - Nicotine dependence, cigarettes, uncomplicated (7) Sedative, hypnotic or anxiolytic dependence with withdrawal, uncomplicated Current Visit: Yes Status: Chronic (8) Weight loss Current Visit: Yes Status: Chronic - Initial Treatment Plan Initial Treatment Plan: Seroquel 300mg po qhs. Cymbalta 80mg poqd
[2018-04-12] MEDS: diazePAM 5 MG TABLET PO PRN (19:10)
[2018-04-12] MEDS ORDERED: MELATONIN 5 MG TABLETS PO PRN (22:00)
[2018-04-12] MEDS: RITONAVIR 100 MG TABLET PO SCH (22:17)
[2018-04-12] MEDS: DARUNAVIR ETHANOLATE 600 MG TAB PO SCH (22:17)
[2018-04-12] MEDS: THIAMINE HCL 100 MG TABLET (FP) PO SCH (22:17)
[2018-04-12] MEDS: diazePAM 5 MG TABLET PO SCH (22:17)
[2018-04-12] MEDS: QUEtiapine FUMARATE 300 MG TABLET PO SCH (22:58)
[2018-04-13] MEDS ORDERED: METHADONE HCL 40 MG DISPERSABLE TABLET ONE (05:47)
[2018-04-13] MEDS ORDERED: METHADONE HCL 10 MG TABLET ONE (05:47)
[2018-04-13] MEDS: diazePAM 5 MG TABLET PO SCH ×3 (05:48→22:28)
[2018-04-13] MEDS: METHADONE 80 MG, METHADONE 10 MG PO SCH (05:48)
[2018-04-13] MEDS ORDERED: METHADONE HCL 40 MG DISPERSABLE TABLET PO SCH (06:00)
[2018-04-13] MEDS ORDERED: DULoxetine HCL 20 MG CAPSULE.DR (FP) PO SCH (10:00)
[2018-04-13 10:23] LABS: ALBUMIN 4.2 g/dl (3.4-5.0); ALK PHOS 94 U/L (45-117); ANION GAP 5 MMOL/L (8-16); BILIRUBIN,TOTAL 0.9 mg/dL (0.2-1); BLOOD UREA NITROGEN 12 mg/dL (7-18); CALCIUM 8.6 mg/dL (8.5-10.1); CHLORIDE 103 mmol/L (98-107); CO2 30 mmol/L (21-32); CREATININE 0.7 mg/dL (0.55-1.3); GLUCOSE,RANDOM 63 mg/dL (74-106); POTASSIUM 3.8 mmol/L (3.5-5.1); SGOT/AST 47 U/L (15-37); SGPT/ALT 60 U/L (13-61); SODIUM 139 mmol/L (136-145); TOT PROT 8.1 g/dl (6.4-8.2)
[2018-04-13] MEDS: RITONAVIR 100 MG TABLET PO SCH ×2 (10:30→22:28)
[2018-04-13] MEDS: PRENATAL VITAMINS W/ FOLIC ACID TABLET (FP) PO SCH (10:30)
[2018-04-13] MEDS: DARUNAVIR ETHANOLATE 600 MG TAB PO SCH ×2 (10:30→22:28)
[2018-04-13] MEDS: EMTRICITABINE 200MG/TENOFOVIR 300MG PO SCH (10:30)
[2018-04-13] MEDS: NICOTINE 21 MG/24 HOURS TOPICAL PATCH TD SCH (10:31)
[2018-04-13 10:48] LABS: HEMATOCRIT 38.7 % (32.4-45.2); HEMOGLOBIN 13.4 GM/dL (10.7-15.3); MCH 34.1 pg (25.7-33.7); MCHC 34.6 g/dl (32.0-36.0); MEAN CELL VOLUME 98.7 fl (80-96); MEAN PLT VOLUME 11.6 fl (7.5-11.1); PLATELET COUNT 159 K/MM3 (134-434); RBC 3.92 M/mm3 (3.60-5.2); RDW 15.6 % (11.6-15.6)
[2018-04-13] MEDS: DULOXETINE HCL 60 MG, DULOXETINE HCL 20 MG PO SCH (10:48)
--- NOTE | 2018-04-13 13:25 | PN ---
S CIWA - CIWA Score Nausea/Vomitin-No Nausea/No Vomiting Muscle Tremors: 4-Moderate,w/Arms Extend Anxiety: 4-Mod. Anxious/Guarded Agitation: 4-Moderately Restless Paroxysmal Sweats: 3 Orientation: 0-Oriented Tacttile Disturbances: 0-None Auditory Disturbances: 0-None Visual Disturbances: 0-None Headache: 0-None Present CIWA-Ar Total Score: 15 B[facility] Progress Note (SOAP) Subjective: anxiety sweats shakes interrupted sleep body aches Objective: 04/13/18 13:29 Vital Signs Temperature 97.0 F L 04/13/18 09:59 Pulse Rate 85 04/13/18 09:59 Respiratory Rate 18 04/13/18 09:59 Blood Pressure 101/69 04/13/18 09:59 O2 Sat by Pulse Oximetry (%) Laboratory Tests 04/13/18 04/13/18 06:00 06:00 WBC 5.0 RBC 3.92 Hgb 13.4 Hct 38.7 MCV 98.7 H MCH 34.1 H MCHC 34.6 RDW 15.6 Plt Count 159 D MPV 11.6 H Sodium 139 Potassium 3.8 Chloride 103 Carbon Dioxide 30 Anion Gap 5 L BUN 12 Creatinine 0.7 Creat Clearance w eGFR > 60 Random Glucose 63 L Calcium 8.6 Total Bilirubin 0.9 AST 47 H ALT 60 Alkaline Phosphatase 94 Total Protein 8.1 Albumin 4.2 aaox3 ambulating no acute distress Assessment: 04/13/18 13:30 withdrawal sx Plan: continue detox increase fluids
[2018-04-13] MEDS: diazePAM 5 MG TABLET PO PRN ×2 (16:51→21:20)
[2018-04-13] MEDS: THIAMINE HCL 100 MG TABLET (FP) PO SCH (22:28)
[2018-04-13] MEDS: QUEtiapine FUMARATE 300 MG TABLET PO SCH (22:28)
[2018-04-14] MEDS ORDERED: METHADONE HCL 40 MG DISPERSABLE TABLET ONE (04:35)
[2018-04-14] MEDS ORDERED: METHADONE HCL 10 MG TABLET ONE (04:35)
[2018-04-14] MEDS: METHADONE 80 MG, METHADONE 10 MG PO SCH (05:15)
[2018-04-14] MEDS: diazePAM 5 MG TABLET PO PRN ×4 (06:13→21:08)
[2018-04-14] MEDS: PRENATAL VITAMINS W/ FOLIC ACID TABLET (FP) PO SCH (10:40)
[2018-04-14] MEDS: diazePAM 5 MG TABLET PO SCH ×2 (10:40→22:29)
[2018-04-14] MEDS: DARUNAVIR ETHANOLATE 600 MG TAB PO SCH ×2 (10:40→22:29)
[2018-04-14] MEDS: NICOTINE 21 MG/24 HOURS TOPICAL PATCH TD SCH (10:40)
[2018-04-14] MEDS: RITONAVIR 100 MG TABLET PO SCH ×2 (10:41→22:28)
[2018-04-14] MEDS: EMTRICITABINE 200MG/TENOFOVIR 300MG PO SCH (10:41)
[2018-04-14] MEDS: DULOXETINE HCL 60 MG, DULOXETINE HCL 20 MG PO SCH (10:41)
--- NOTE | 2018-04-14 15:15 | PN ---
S CIWA - CIWA Score Nausea/Vomitin Muscle Tremors: 2 Anxiety: 2 Agitation: 2 Paroxysmal Sweats: 2 Orientation: 0-Oriented Tacttile Disturbances: 2-Mild Itch/Numbness/Burn Auditory Disturbances: 0-None Visual Disturbances: 0-None Headache: 2-Mild CIWA-Ar Total Score: 14 S Progress Note (SOAP) Subjective: Anxiety, interrupted sleep, tremors and sweats Objective: 04/14/18 15:14 Vital Signs 04/14/18 04/14/18 09:52 15:00 Temperature 97.9 F 97.9 F Pulse Rate 88 74 Respiratory 19 18 Rate Blood Pressure 104/64 91/68 Laboratory Last Values WBC 5.0 K/mm3 (4.0-10.0) 04/13/18 06:00 RBC 3.92 M/mm3 (3.60-5.2) 04/13/18 06:00 Hgb 13.4 GM/dL (10.7-15.3) 04/13/18 06:00 Hct 38.7 % (32.4-45.2) 04/13/18 06:00 MCV 98.7 fl (80-96) H 04/13/18 06:00 MCH 34.1 pg (25.7-33.7) H 04/13/18 06:00 MCHC 34.6 g/dl (32.0-36.0) 04/13/18 06:00 RDW 15.6 % (11.6-15.6) 04/13/18 06:00 Plt Count 159 K/MM3 (134-434) D 04/13/18 06:00 MPV 11.6 fl (7.5-11.1) H 04/13/18 06:00 Sodium 139 mmol/L (136-145) 04/13/18 06:00 Potassium 3.8 mmol/L (3.5-5.1) 04/13/18 06:00 Chloride 103 mmol/L (98-107) 04/13/18 06:00 Carbon Dioxide 30 mmol/L (21-32) 04/13/18 06:00 Anion Gap 5 MMOL/L (8-16) L 04/13/18 06:00 BUN 12 mg/dL (7-18) 04/13/18 06:00 Creatinine 0.7 mg/dL (0.55-1.3) 04/13/18 06:00 Creat Clearance w eGFR > 60 (>60) 04/13/18 06:00 Random Glucose 63 mg/dL (74-106) L 04/13/18 06:00 Calcium 8.6 mg/dL (8.5-10.1) 04/13/18 06:00 Total Bilirubin 0.9 mg/dL (0.2-1) 04/13/18 06:00 AST 47 U/L (15-37) H 04/13/18 06:00 ALT 60 U/L (13-61) 04/13/18 06:00 Alkaline Phosphatase 94 U/L (45-117) 04/13/18 06:00 Total Protein 8.1 g/dl (6.4-8.2) 04/13/18 06:00 Albumin 4.2 g/dl (3.4-5.0) 04/13/18 06:00 RPR Titer Nonreactive (NONREACTIVE) 04/13/18 06:00 Labs noted Assessment: 04/14/18 15:14 Withdrawal sx Plan: Continue detox
[2018-04-14] MEDS: QUEtiapine FUMARATE 300 MG TABLET PO SCH (22:28)
[2018-04-14] MEDS: THIAMINE HCL 100 MG TABLET (FP) PO SCH (22:28)
[2018-04-15] MEDS ORDERED: METHADONE HCL 10 MG TABLET ONE (04:31)
[2018-04-15] MEDS ORDERED: METHADONE HCL 40 MG DISPERSABLE TABLET ONE (04:31)
[2018-04-15] MEDS: diazePAM 5 MG TABLET PO PRN ×2 (04:56→12:12)
[2018-04-15] MEDS: METHADONE 80 MG, METHADONE 10 MG PO SCH (05:33)
[2018-04-15] MEDS: DARUNAVIR ETHANOLATE 600 MG TAB PO SCH ×2 (10:03→22:07)
[2018-04-15] MEDS: DULOXETINE HCL 60 MG, DULOXETINE HCL 20 MG PO SCH (10:03)
[2018-04-15] MEDS: PRENATAL VITAMINS W/ FOLIC ACID TABLET (FP) PO SCH (10:04)
[2018-04-15] MEDS: NICOTINE 21 MG/24 HOURS TOPICAL PATCH TD SCH (10:04)
[2018-04-15] MEDS: RITONAVIR 100 MG TABLET PO SCH ×2 (10:04→22:07)
[2018-04-15] MEDS: EMTRICITABINE 200MG/TENOFOVIR 300MG PO SCH (10:04)
[2018-04-15] MEDS: diazePAM 5 MG TABLET PO SCH ×2 (10:04→22:08)
--- NOTE | 2018-04-15 18:19 | PN ---
[facility] Progress Note (SOAP) Subjective: Anxious, sweating, interrupted sleep Objective: 04/15/18 18:18 Last Vital Signs Temp Pulse Resp BP Pulse Ox 98.1 F 77 18 116/69 04/15/18 17:43 04/15/18 17:43 04/15/18 17:43 04/15/18 17:43 Laboratory Tests 04/13/18 04/13/18 04/13/18 06:00 06:00 06:00 WBC 5.0 RBC 3.92 Hgb 13.4 Hct 38.7 MCV 98.7 H MCH 34.1 H MCHC 34.6 RDW 15.6 Plt Count 159 D MPV 11.6 H Sodium 139 Potassium 3.8 Chloride 103 Carbon Dioxide 30 Anion Gap 5 L BUN 12 Creatinine 0.7 Creat Clearance w eGFR > 60 Random Glucose 63 L Calcium 8.6 Total Bilirubin 0.9 AST 47 H ALT 60 Alkaline Phosphatase 94 Total Protein 8.1 Albumin 4.2 RPR Titer Nonreactive Labs reviewed Assessment: 04/15/18 18:18 Withdrawal symptoms Plan: Continue detox Encouraged PO water hydration Patient scheduled for discharge tomorrow. Patient instructed to follow up with PCP within 1 week.
[2018-04-15] MEDS: THIAMINE HCL 100 MG TABLET (FP) PO SCH (22:08)
[2018-04-15] MEDS: QUEtiapine FUMARATE 300 MG TABLET PO SCH (22:08)
[2018-04-16] MEDS ORDERED: METHADONE HCL 40 MG DISPERSABLE TABLET ONE (04:20)
[2018-04-16] MEDS ORDERED: METHADONE HCL 10 MG TABLET ONE (04:21)
[2018-04-16] MEDS: METHADONE 80 MG, METHADONE 10 MG PO SCH (05:22)
[2018-04-16 09:34] VITALS: BP 96/70; PULSE 94; TEMP 97.9
--- NOTE | 2018-04-16 09:51 | DS ---
[facility] Detox Discharge Summary Admission Date: 04/12/18 Discharge Date: 04/16/18 - History Present History: Cocaine Dependence, Sedative Dependence, MMTP - Physical Exam Results Vital Signs: Vital Signs Temperature 97.9 F 04/16/18 09:34 Pulse Rate 94 H 04/16/18 09:34 Respiratory Rate 18 04/16/18 09:34 Blood Pressure 96/70 04/16/18 09:34 O2 Sat by Pulse Oximetry (%) - Treatment Hospital Course: Detox Protocol Followed, Detoxed Safely, Responded well, Discharged Condition Good, Rehab Referral Accepted - Medication Discharge Medications: Ambulatory Orders Emtricitabine/Tenofovir [Truvada -] 1 tab PO DAILY #30 tablet 10/31/14 Darunavir Ethanolate [Prezista -] 600 mg PO BID #60 tab 05/14/17 Ritonavir [Norvir -] 100 mg PO BID #60 tab 05/14/17 Quetiapine Fumarate [Seroquel -] 200 mg PO HS #30 tablet 09/21/17 Duloxetine HCl [Cymbalta -] 80 mg PO DAILY #120 capsule. 04/12/18 Methadone [Dolophine -] 90 mg PO DAILY 04/12/18 Quetiapine Fumarate [Seroquel -] 300 mg PO HS #30 tab 04/12/18 - Diagnosis (1) Bipolar 1 disorder Current Visit: Yes Status: Chronic (2) Sedative, hypnotic or anxiolytic dependence with withdrawal, uncomplicated Current Visit: Yes Status: Chronic (3) Weight loss Current Visit: Yes Status: Chronic (4) Cocaine dependence Current Visit: Yes Status: Chronic Qualifiers: Substance use status: uncomplicated Qualified Code(s): F14.20 - Cocaine dependence, uncomplicated (5) HIV (human immunodeficiency virus infection) Current Visit: Yes Status: Chronic Qualifiers: HIV symptom status: asymptomatic Qualified Code(s): Z21 - Asymptomatic human immunodeficiency virus [HIV] infection status (6) Hepatitis C Current Visit: Yes Status: Chronic Qualifiers: Viral hepatitis chronicity: chronic Hepatic coma status: without hepatic coma Qualified Code(s): B18.2 - Chronic viral hepatitis C (7) Methadone maintenance therapy patient Current Visit: Yes Status: Chronic (8) Nicotine dependence Current Visit: Yes Status: Chronic Qualifiers: Nicotine product type: cigarettes Substance use status: uncomplicated Qualified Code(s): F17.210 - Nicotine dependence, cigarettes, uncomplicated (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
[2018-04-16] MEDS ORDERED: diazePAM 5 MG TABLET PO SCH (10:00)
[2018-04-16] MEDS: EMTRICITABINE 200MG/TENOFOVIR 300MG PO SCH (10:19)
[2018-04-16] MEDS: DULOXETINE HCL 60 MG, DULOXETINE HCL 20 MG PO SCH (10:19)
[2018-04-16] MEDS: PRENATAL VITAMINS W/ FOLIC ACID TABLET (FP) PO SCH (10:19)
[2018-04-16] MEDS: DARUNAVIR ETHANOLATE 600 MG TAB PO SCH (10:19)
[2018-04-16] MEDS: RITONAVIR 100 MG TABLET PO SCH (10:20)
[2018-04-16] MEDS: NICOTINE 21 MG/24 HOURS TOPICAL PATCH TD SCH (10:21)
== END 2018-04-16 12:15 | disposition home or self-care (01) | DRG 897 ==
LOC: YASAS 11:40 → Y6N 13:35
PROVIDERS: ADMIT Neuromusculoskeletal Medicine & OMM; ATTEND Neuromusculoskeletal Medicine & OMM
PROC: HZ2ZZZZ Detoxification Services for Substance Abuse Treatment (ICD-10-PCS; principal; 2018-04-12)
DX: F13.230 Sedative, hypnotic or anxiolytic dependence with withdrawal, uncomplicated (principal); F14.20 Cocaine dependence, uncomplicated; F11.20 Opioid dependence, uncomplicated; F31.89 Other bipolar disorder; F17.210 Nicotine dependence, cigarettes, uncomplicated; Z21 Asymptomatic human immunodeficiency virus [HIV] infection status; R63.4 Abnormal weight loss; Z68.25 Body mass index [BMI] 25.0-25.9, adult; Z86.19 Personal history of other infectious and parasitic diseases; Z86.69 Personal history of other diseases of the nervous system and sense organs; Z87.2 Personal history of diseases of the skin and subcutaneous tissue; Z91.5 Personal history of self-harm
CPT/HCPCS: 36415; 80053; 85027; 86593

== ENCOUNTER 2018-06-05 11:24 | Inpatient (IN) | payer OTHER ==
[2018-06-05 13:10] VITALS: BMI 25.4
--- NOTE | 2018-06-05 15:22 | HP ---
CIWA Score Nausea/Vomitin Muscle Tremors: 2 Anxiety: 2 Agitation: 2 Paroxysmal Sweats: 1-Minimal Palms Moist Orientation: 0-Oriented Tacttile Disturbances: 1-Very Mild Itch/Numbness Auditory Disturbances: 1-Very Mild Visual Disturbances: 0-None Headache: 2-Mild CIWA-Ar Total Score: 13 - Admission Criteria OASAS Guidelines: Admission for Medically Managed Detox: Requires at least one of the followin. CIWA greater than 12 2. Seizures within the past 24 hours 3. Delirium tremens within the past 24 hours 4. Hallucinations within the past 24 hours 5. Acute intervention needed for co occurring medical disorder 6. Acute intervention needed for co occurring psychiatric disorder 7. Severe withdrawal that cannot be handled at a lower level of care (continued vomiting, continued diarrhea, abnormal vital signs) requiring intravenous medication and/or fluids 8. Admission ROS S - HPI Chief Complaint: i need help to stop using xanax,cocaine,[id number] abused Allergies/Adverse Reactions: Allergies Allergy/AdvReac Type Severity Reaction Status Date / Time lamotrigine [From Lamictal] Allergy Severe Rash / Verified 06/05/18 15:13 Uday Isauro syndrome History of Present Illness: this 67 years old female with xanax dependence,cocaine abused,suboxone abused, mmtp last medicated today 80 mgs hepatitis c hiv since 2000 multiple admissions in detox,last treatment c 04/12/18 to 04/16/18 longest period of sobriety 11 years plan to go to rehab after detox major depression,ptsd,borderlined personality drug related seizure last 08/04 sugery of back,left chest tube,fx left shoulder,fx both wrists Exam Limitations: No Limitations - Ebola screening Have you traveled outside of the country in the last 21 days: No Have you had contact with anyone from an Ebola affected area: No Have you been sick,other than usual withdrawal symptoms: No - Review of Systems Constitutional: Loss of Appetite, Malaise, Night Sweats, Changes in sleep, Weakness EENT: reports: Tearing, Nose Congestion, Other (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 ) Respiratory: reports: No Symptoms reported Cardiac: reports: No Symptoms Reported GI: reports: Nausea, Poor Appetite, Abdominal cramping : reports: No Symptoms Reported Musculoskeletal: reports: Back Pain, Muscle Pain Integumentary: reports: Dryness Neuro: reports: Headache, Tremors Endocrine: reports: No Symptoms Reported Hematology: reports: Other (hiv) Psychiatric: reports: No Sypmtoms Reported, Judgement Intact, Mood/Affect Appropiate, Depressed, other (overdose 8 times) Patient History - Patient Medical History Hx Anemia: No Hx Asthma: No Hx Chronic Obstructive Pulmonary Disease (COPD): No Hx Cancer: No Hx Cardiac Disorders: No Hx Congestive Heart Failure: No Hx Hypertension: No Hx Hypercholesterolemia: No Hx Pacemaker: No HX Cerebrovascular Accident: No Hx Seizures: Yes (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 was in 04/2017) Hx Dementia: No Hx Diabetes: No Hx Gastrointestinal Disorders: No Hx Liver Disease: Yes (Hep C no treatment) Hx Genitourinary Disorders: No Hx Sexually Transmitted Disorders: No Hx Renal Disease (ESRD): No Hx Thyroid Disease: No Hx Human Immunodeficiency Virus (HIV): Yes (since 2000;NORVIR, PREZISTA;TRUVADA) Hx Hepatitis C: Yes (1987) Hx Depression: Yes Hx Suicide Attempt: Yes (pill overdose in 03/19/2018) Hx Bipolar Disorder: Yes Hx Schizophrenia: No Other Medical History: no suicidal,no homicidal - Patient Surgical History Past Surgical History: No Hx Neurologic Surgery: No Hx Cataract Extraction: No Hx Cardiac Surgery: No Hx Lung Surgery: No Hx Breast Surgery: No Hx Breast Biopsy: No Hx Abdominal Surgery: No Hx Appendectomy: No Hx Cholecystectomy: No Hx Genitourinary Surgery: No Hx Section: No Hx Orthopedic Surgery: Yes (LOWER BACK SX WITH 4 PLATES IN 03/07/2016) Hx Hysterectomy: No Other Surgical History: Fx bilateral wrist sx. Anesthesia Reaction: No - PPD History Previous Implant?: Yes Documented Results: Negative w/proof Implanted On Prior R Admission?: Yes Date: 04/14/18 Results: 0 mm PPD to be Administered?: No - Reproductive History Patient is a Female of Child Bearing Age (11 -55 yrs old): No Patient : No - Smoking Cessation Smoking history: Current every day smoker Have you smoked in the past 12 months: Yes Aproximately how many cigarettes per day: 7 Cigars Per Day: 0 Hx Chewing Tobacco Use: No Initiated information on smoking cessation: Yes 'Breaking Loose' booklet given: 06/05/18 - Substance & Tx. History Hx Alcohol Use: No Hx Substance Use: Yes Substance Use Type: Cocaine, Tranquilizers Hx Substance Use Treatment: Yes ([facility] 04/12/18 o 04/16/18) - Substances Abused Alprazolam (Xanax) Route: Oral Frequency: Daily Amount used: 10 mg Age of first use: 37 Date of Last Use: 06/05/18 Cocaine Route: Smoking Frequency: Daily Amount used: $50 and up Age of first use: 19 Date of Last Use: 06/04/18 Family Disease History - Family Disease History Family Disease History: Other: Brother (dsa), Sister (alcohol,dsa) Admission Physical Exam [facility] - Vital Signs Vital Signs: Vital Signs - 24 hr 06/05/18 13:08 Temperature 96.4 F L Pulse Rate 77 Respiratory 20 Rate Blood Pressure 131/86 - Physical General Appearance: Yes: Moderate Distress, Irritable, Sweating, Anxious HEENTM: Yes: EMILY, Other (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 dafenss of right ear since 1999) Respiratory: Yes: Lungs Clear, Other (s/p left chest tube in 2014) Neck: Yes: Within Normal Limits, Supple, Trachea in good position Breast: Yes: Breast Exam Deferred Cardiology: Yes: Within Normal Limits, Regular Rhythm, Regular Rate, S1, S2 Abdominal: Yes: Within Normal Limits, Normal Bowel Sounds, Non Tender, Flat, Soft Genitourinary: Yes: Within Normal Limits Back: Yes: Muscle Spasm Musculoskeletal: Yes: Back pain, Muscle Pain Extremities: Yes: Tremors, Other (deformity of right wrist old fx) 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: Yes: 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 II-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 NML intact, Fully Oriented, Alert, Motor Strength 5/5 Integumentary: Yes: Dry Lymphatic: Yes: Within Normal Limits - Diagnostic (1) Sedative, hypnotic or anxiolytic dependence with withdrawal, uncomplicated Current Visit: No Status: Chronic (2) Bipolar 1 disorder Current Visit: No Status: Chronic (3) Cocaine dependence Current Visit: No Status: Chronic Qualifiers: Substance use status: uncomplicated Qualified Code(s): F14.20 - Cocaine dependence, uncomplicated (4) H/O Swift-Isauro toxic epidermal necrolysis overlap syndrome Current Visit: No Status: Chronic (5) HIV (human immunodeficiency virus infection) Current Visit: No Status: Chronic Qualifiers: HIV symptom status: asymptomatic Qualified Code(s): Z21 - Asymptomatic human immunodeficiency virus [HIV] infection status (6) Hepatitis C Current Visit: No Status: Chronic Qualifiers: Viral hepatitis chronicity: chronic Hepatic coma status: without hepatic coma Qualified Code(s): B18.2 - Chronic viral hepatitis C (7) Methadone maintenance therapy patient Current Visit: No Status: Chronic Comment: Patient on 80 mg qd, dose pending verification (8) Weight loss Current Visit: No Status: Chronic (9) Fracture of both wrists Current Visit: Yes Status: Acute (10) History of back surgery Current Visit: Yes Status: Acute (11) Hx of chest tube placement Current Visit: Yes Status: Acute (12) Shoulder fracture, left Current Visit: Yes Status: Acute Cleared for Admission S - Detox or Rehab S Level of Care: Medically Managed Detox Regimen/Protocol: Valium BHS Breath Alcohol Content Breath Alcohol Content: 0 Urine Pregancy Test - Result Urine Test Results: Negative - NO Line Present Urine Drug Screen - Results Drug Screen Negative: No Urine Drug Screen Results: YAZ-Cocaine, BZO-Benzodiazepines, MTD-Methadone, BUP- Suboxone Inpatient Rehab Admission - Rehab Decision to Admit Inpatient rehab admission?: No
[2018-06-05] MEDS ORDERED: MAGNESIUM CITRATE 300 ML BOTTLE PO PRN (15:52)
[2018-06-05] MEDS ORDERED: METHOCARBAMOL 500 MG TABLET PO PRN (15:52)
[2018-06-05] MEDS ORDERED: MELATONIN 5 MG TABLETS PO PRN (15:52)
[2018-06-05] MEDS ORDERED: guaiFENesin 200 MG/10 ML 10 ML UNIT-DOSE CUPS PO PRN (15:52)
[2018-06-05] MEDS ORDERED: MAG HYDROX/AL HYDROX/SIMETH 30 ML UNIT-DOSE CUP PO PRN (15:52)
[2018-06-05] MEDS ORDERED: IBUPROFEN 400 MG TABLET (FP) PO PRN (15:52)
[2018-06-05] MEDS ORDERED: hydrOXYzine PAMOATE 25 MG CAPSULE (FP) PO PRN (15:52)
[2018-06-05] MEDS ORDERED: BISMUTH SUBSALICYLATE 524 MG/30 ML UD PO PRN (15:52)
[2018-06-05] MEDS ORDERED: ACETAMINOPHEN 325 MG TABLET (FP) PO PRN (15:52)
[2018-06-05] MEDS ORDERED: MENTHOL/PHENOL 1 EACH UD MM PRN (15:52)
[2018-06-05] MEDS ORDERED: P-EPHED 60MG/TRIPROLIDI 2.5MG TABLET PO PRN (15:52)
[2018-06-05] MEDS ORDERED: MAGNESIUM HYDROX 2400MG/30ML ORAL SUSPENSION 30 ML CUP PO PRN (15:52)
[2018-06-05] MEDS ORDERED: diazePAM 5 MG TABLET PO ONE (16:15)
[2018-06-05] MEDS: diazePAM 5 MG TABLET PO PRN (21:38)
[2018-06-05] MEDS: DARUNAVIR ETHANOLATE 600 MG TAB PO SCH (23:08)
[2018-06-05] MEDS: diazePAM 5 MG TABLET PO SCH (23:08)
[2018-06-05] MEDS: THIAMINE HCL 100 MG TABLET (FP) PO SCH (23:09)
[2018-06-05] MEDS: RITONAVIR 100 MG TABLET PO SCH (23:09)
[2018-06-06] MEDS: diazePAM 5 MG TABLET PO SCH ×3 (05:39→22:52)
[2018-06-06] MEDS: ACETAMINOPHEN 325 MG TABLET (FP) PO PRN ×2 (05:41→20:10)
[2018-06-06] MEDS ORDERED: METHADONE HCL 10 MG TABLET PO ONE (08:32)
[2018-06-06] MEDS: diazePAM 5 MG TABLET PO PRN ×3 (08:45→20:08)
[2018-06-06] MEDS ORDERED: METHADONE 80 MG, METHADONE 10 MG PO ONE (09:15)
[2018-06-06] MEDS ORDERED: METHADONE HCL 40 MG DISPERSABLE TABLET ONE (09:16)
[2018-06-06] MEDS ORDERED: METHADONE HCL 10 MG TABLET ONE (09:17)
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
[2018-06-06] MEDS: PRENATAL VITAMINS W/ FOLIC ACID TABLET (FP) PO SCH (11:03)
[2018-06-06] MEDS: RITONAVIR 100 MG TABLET PO SCH ×2 (11:03→22:53)
[2018-06-06] MEDS: DARUNAVIR ETHANOLATE 600 MG TAB PO SCH ×2 (11:04→22:53)
[2018-06-06] MEDS: EMTRICITABINE 200MG/TENOFOVIR 300MG PO SCH (11:04)
[2018-06-06 11:33] LABS: HEMATOCRIT 41.7 % (32.4-45.2); HEMOGLOBIN 14.3 GM/dL (10.7-15.3); MCH 34.2 pg (25.7-33.7); MCHC 34.4 g/dl (32.0-36.0); MEAN CELL VOLUME 99.3 fl (80-96); MEAN PLT VOLUME 10.7 fl (7.5-11.1); PLATELET COUNT 146 K/MM3 (134-434); RBC 4.19 M/mm3 (3.60-5.2); RDW 14.3 % (11.6-15.6); WHITE BLOOD COUNT 3.9 K/mm3 (4.0-10.0)
[2018-06-06 11:43] LABS: URINE APPEARANCE SLCLOUDY; URINE BILIRUBIN NEGATIVE (<2.0 mg/dL); URINE COLOR YELLOW; URINE GLUCOSE (UA) NEGATIVE (NEGATIVE); URINE KETONE NEGATIVE (NEGATIVE); URINE LEUK ESTERASE NEGATIVE (NEGATIVE); URINE NITRITE NEGATIVE (NEGATIVE); URINE PROTEIN NEGATIVE (NEGATIVE)
[2018-06-06 11:50] LABS: ALK PHOS 83 U/L (45-117); ANION GAP 5 MMOL/L (8-16); BILIRUBIN,TOTAL 1.1 mg/dL (0.2-1); BLOOD UREA NITROGEN 11 mg/dL (7-18); CALCIUM 9.3 mg/dL (8.5-10.1); CHLORIDE 105 mmol/L (98-107); CO2 28 mmol/L (21-32); CREATININE 0.7 mg/dL (0.55-1.3); GLUCOSE,RANDOM 106 mg/dL (74-106); POTASSIUM 4.3 mmol/L (3.5-5.1); SGOT/AST 32 U/L (15-37); SGPT/ALT 39 U/L (13-61); SODIUM 138 mmol/L (136-145)
[2018-06-06] MEDS: DULoxetine HCL 60 MG CAPSULE.DR PO SCH (13:56)
--- NOTE | 2018-06-06 14:09 | PN ---
S CIWA - CIWA Score Nausea/Vomitin-No Nausea/No Vomiting Muscle Tremors: 4-Moderate,w/Arms Extend Anxiety: 4-Mod. Anxious/Guarded Agitation: 4-Moderately Restless Paroxysmal Sweats: 3 Orientation: 0-Oriented Tacttile Disturbances: 0-None Auditory Disturbances: 0-None Visual Disturbances: 0-None Headache: 0-None Present CIWA-Ar Total Score: 15 BHS Progress Note (SOAP) Subjective: restless agitation sweats interrupted sleep Objective: 06/06/18 14:08 Vital Signs Temperature 97.7 F 06/06/18 09:51 Pulse Rate 74 06/06/18 09:51 Respiratory Rate 18 06/06/18 09:51 Blood Pressure 122/67 06/06/18 09:51 O2 Sat by Pulse Oximetry (%) Laboratory Tests 06/06/18 06/06/18 06/06/18 07:45 07:45 07:45 WBC 3.9 L RBC 4.19 Hgb 14.3 Hct 41.7 MCV 99.3 H MCH 34.2 H MCHC 34.4 RDW 14.3 Plt Count 146 MPV 10.7 Sodium 138 Potassium 4.3 Chloride 105 Carbon Dioxide 28 Anion Gap 5 L BUN 11 Creatinine 0.7 Creat Clearance w eGFR 83.98 Random Glucose 106 Calcium 9.3 Total Bilirubin 1.1 H AST 32 ALT 39 Alkaline Phosphatase 83 Total Protein 8.0 Albumin 4.0 Urine Color Urine Appearance Urine pH Ur Specific [place] Urine Protein Urine Glucose (UA) Urine Ketones Urine Blood Urine Nitrite Urine Bilirubin Urine Urobilinogen Ur Leukocyte Esterase RPR Titer Nonreactive 06/06/18 08:00 WBC RBC Hgb Hct MCV MCH MCHC RDW Plt Count MPV Sodium Potassium Chloride Carbon Dioxide Anion Gap BUN Creatinine Creat Clearance w eGFR Random Glucose Calcium Total Bilirubin AST ALT Alkaline Phosphatase Total Protein Albumin Urine Color Yellow Urine Appearance Slcloudy Urine pH 6.0 Ur Specific [place] 1.012 Urine Protein Negative Urine Glucose (UA) Negative Urine Ketones Negative Urine Blood Negative Urine Nitrite Negative Urine Bilirubin Negative Urine Urobilinogen 2.0 H Ur Leukocyte Esterase Negative RPR Titer labs noted [id number] ambulating no acute distress Assessment: 06/06/18 14:08 withdrawal sx Plan: continue detox increase fluids
[2018-06-06] MEDS: THIAMINE HCL 100 MG TABLET (FP) PO SCH (22:52)
[2018-06-06] MEDS: QUEtiapine FUMARATE 300 MG TABLET PO SCH (22:52)
[2018-06-07] MEDS ORDERED: METHADONE HCL 10 MG TABLET ONE (04:23)
[2018-06-07] MEDS ORDERED: METHADONE HCL 40 MG DISPERSABLE TABLET ONE (04:23)
[2018-06-07] MEDS: METHADONE 80 MG, METHADONE 10 MG PO SCH (05:21)
[2018-06-07] MEDS ORDERED: METHADONE HCL 10 MG TABLET PO SCH (06:00)
[2018-06-07] MEDS: diazePAM 5 MG TABLET PO PRN ×4 (06:19→20:45)
[2018-06-07] MEDS: EMTRICITABINE 200MG/TENOFOVIR 300MG PO SCH (10:49)
[2018-06-07] MEDS: DARUNAVIR ETHANOLATE 600 MG TAB PO SCH ×2 (10:49→22:18)
[2018-06-07] MEDS: RITONAVIR 100 MG TABLET PO SCH ×2 (10:50→22:19)
[2018-06-07] MEDS: PRENATAL VITAMINS W/ FOLIC ACID TABLET (FP) PO SCH (10:50)
[2018-06-07] MEDS: DULoxetine HCL 60 MG CAPSULE.DR PO SCH (10:50)
[2018-06-07] MEDS: diazePAM 5 MG TABLET PO SCH ×2 (10:51→22:19)
[2018-06-07] MEDS: QUEtiapine FUMARATE 300 MG TABLET PO SCH (22:18)
[2018-06-07] MEDS: THIAMINE HCL 100 MG TABLET (FP) PO SCH (22:19)
[2018-06-08] MEDS ORDERED: METHADONE HCL 40 MG DISPERSABLE TABLET ONE (05:06)
[2018-06-08] MEDS ORDERED: METHADONE HCL 10 MG TABLET ONE (05:07)
[2018-06-08] MEDS: METHADONE 80 MG, METHADONE 10 MG PO SCH (05:09)
[2018-06-08] MEDS ORDERED: diazePAM 5 MG TABLET PO SCH (06:00)
[2018-06-08] MEDS: diazePAM 5 MG TABLET PO PRN ×2 (08:02→12:00)
[2018-06-08] MEDS: DULoxetine HCL 60 MG CAPSULE.DR PO SCH (10:14)
[2018-06-08] MEDS: DARUNAVIR ETHANOLATE 600 MG TAB PO SCH ×2 (10:14→23:46)
[2018-06-08] MEDS: PRENATAL VITAMINS W/ FOLIC ACID TABLET (FP) PO SCH (10:14)
[2018-06-08] MEDS: RITONAVIR 100 MG TABLET PO SCH ×2 (10:14→23:45)
[2018-06-08] MEDS: EMTRICITABINE 200MG/TENOFOVIR 300MG PO SCH (11:21)
--- NOTE | 2018-06-08 11:55 | PN ---
BHS CIWA - CIWA Score Nausea/Vomitin Muscle Tremors: 2 Anxiety: 2 Agitation: 2 Paroxysmal Sweats: 1-Minimal Palms Moist Orientation: 0-Oriented Tacttile Disturbances: 1-Very Mild Itch/Numbness Auditory Disturbances: 1-Very Mild Visual Disturbances: 0-None Headache: 2-Mild CIWA-Ar Total Score: 13 BHS Progress Note (SOAP) Subjective: alert,irritable,anxious,interrupted sleep Objective: 06/08/18 11:50 t97.0,p72,r18,bp 105/66 Assessment: 06/08/18 11:55 withdrawal symptom Plan: continue detox
--- NOTE | 2018-06-08 11:59 | PN ---
S Progress Note (SOAP) Subjective: alert,irritable,anxious,interrupted sleep,feel weak Objective: 06/08/18 11:56 Vital Signs Temperature 97.6 F 06/08/18 09:36 Pulse Rate 72 06/08/18 09:36 Respiratory Rate 18 06/08/18 09:36 Blood Pressure 99/58 L 06/08/18 09:36 O2 Sat by Pulse Oximetry (%) Assessment: 06/08/18 11:57 withdrawal symptom Plan: continue detox,will observe patient for 24 hrs,discharge in 7am that patient can go to mmtp clinic for dose on monday
[2018-06-08] MEDS: QUEtiapine FUMARATE 300 MG TABLET PO SCH (23:46)
[2018-06-08] MEDS: THIAMINE HCL 100 MG TABLET (FP) PO SCH (23:46)
[2018-06-09] MEDS ORDERED: METHADONE HCL 40 MG DISPERSABLE TABLET ONE (04:43)
[2018-06-09] MEDS ORDERED: METHADONE HCL 10 MG TABLET ONE (04:43)
[2018-06-09] MEDS: METHADONE 80 MG, METHADONE 10 MG PO SCH (05:05)
[2018-06-09 06:12] VITALS: BP 101/64; PULSE 94; TEMP 96.8
== END 2018-06-09 05:55 | disposition home or self-care (01) | DRG 897 ==
LOC: YASAS 11:24 → Y6N 15:52
PROVIDERS: ADMIT Surgery; ATTEND Surgery
PROC: HZ2ZZZZ Detoxification Services for Substance Abuse Treatment (ICD-10-PCS; principal; 2018-06-05)
DX: F13.230 Sedative, hypnotic or anxiolytic dependence with withdrawal, uncomplicated (principal); F14.20 Cocaine dependence, uncomplicated; F11.20 Opioid dependence, uncomplicated; F19.280 Other psychoactive substance dependence with psychoactive substance-induced anxiety disorder; F19.282 Other psychoactive substance dependence with psychoactive substance-induced sleep disorder; F17.210 Nicotine dependence, cigarettes, uncomplicated; F31.9 Bipolar disorder, unspecified; F43.10 Post-traumatic stress disorder, unspecified; F60.3 Borderline personality disorder; Z21 Asymptomatic human immunodeficiency virus [HIV] infection status; B18.2 Chronic viral hepatitis C; Z87.2 Personal history of diseases of the skin and subcutaneous tissue; Z91.5 Personal history of self-harm
CPT/HCPCS: 36415; 80053; 81003; 85027; 86593

== ENCOUNTER 2019-01-08 11:41 | Inpatient (IN) | payer OTHER ==
[2019-01-08 13:26] VITALS: BMI 23.2
--- NOTE | 2019-01-08 14:35 | HP ---
CIWA Score Nausea/Vomitin-No Nausea/No Vomiting Muscle Tremors: 5 Anxiety: 3 Agitation: 4-Moderately Restless Paroxysmal Sweats: No Perspiration Orientation: 0-Oriented Tacttile Disturbances: 0-None Auditory Disturbances: 0-None Visual Disturbances: 0-None Headache: 0-None Present CIWA-Ar Total Score: 12 - Admission Criteria OASAS Guidelines: Admission for Medically Managed Detox: Requires at least one of the followin. CIWA greater than 12 2. Seizures within the past 24 hours 3. Delirium tremens within the past 24 hours 4. Hallucinations within the past 24 hours 5. Acute intervention needed for co occurring medical disorder 6. Acute intervention needed for co occurring psychiatric disorder 7. Severe withdrawal that cannot be handled at a lower level of care (continued vomiting, continued diarrhea, abnormal vital signs) requiring intravenous medication and/or fluids 8. Admitting History and Physical - Admission History of Present Illness: 68 y.o. F PMH HIV on HAART (norvir, presizta, truvada) diagnosed in 2000, Hep C , deperssion diagnosed 1998 never treated. Hx of suicidal attempts w/ drug use 8 times in past. Xanax: started using age 37. Uses daily. Took 1 stick this morning (2mg). Normally uses 4 sticks daily (8mg total). She has had seizures in the past from not taking Xanax. Last seizure 8 months ago. Crack cocaine: 3-4 times per month. Injects and smokes, usually smokes. Last used monday, 8 dime bags. Heroin: last used ; now on methadone. Patient is on methadone, gets it from [facility] in [place]. Has been on metahdone since 1987. Cigarettes: 5-6 cigarettes/ daily. Smoked since age 18. 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 Lives in [facility], alone, in [facility]. All: lamictal Meds: Seroquel 400 HS, methadone, efexfor? (for depression) - Past Medical History Hepatobiliary: Yes: Hepatitis C Infectious Disease: Yes: HIV (on HAART) - Smoking History Smoking history: Current every day smoker Have you smoked in the past 12 months: Yes Aproximately how many cigarettes per day: 7 - Alcohol/Substance Use Hx Alcohol Use: No History of Substance Use: reports: Cocaine, Heroin - Social History History of Recent Travel: No Admission ROS [facility] Allergies/Adverse Reactions: Allergies Allergy/AdvReac Type Severity Reaction Status Date / Time lamotrigine [From Lamictal] Allergy Severe Rash / Verified 01/08/19 13:04 Uday Isauro syndrome - Ebola screening Have you traveled outside of the country in the last 21 days: No Have you had contact with anyone from an Ebola affected area: No Do you have a fever: No Patient History - Patient Medical History Hx Anemia: No Hx Asthma: No Hx Chronic Obstructive Pulmonary Disease (COPD): No Hx Cancer: No Hx Cardiac Disorders: No Hx Congestive Heart Failure: No Hx Hypertension: No Hx Hypercholesterolemia: No Hx Pacemaker: No HX Cerebrovascular Accident: No Hx Seizures: Yes (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 was in 04/2017) Hx Dementia: No Hx Diabetes: No Hx Gastrointestinal Disorders: No Hx Liver Disease: Yes (Hep C no treatment) Hx Genitourinary Disorders: No Hx Sexually Transmitted Disorders: No Hx Renal Disease (ESRD): No Hx Thyroid Disease: No Hx Human Immunodeficiency Virus (HIV): Yes (since 2000;NORVIR, PREZISTA;TRUVADA) Hx Hepatitis C: Yes (1987) Hx Depression: Yes Hx Suicide Attempt: Yes (pill overdose in 03/19/2018) Hx Bipolar Disorder: Yes Hx Schizophrenia: No - Patient Surgical History Past Surgical History: No Hx Neurologic Surgery: No Hx Cataract Extraction: No Hx Cardiac Surgery: No Hx Lung Surgery: No Hx Breast Surgery: No Hx Breast Biopsy: No Hx Abdominal Surgery: No Hx Appendectomy: No Hx Cholecystectomy: No Hx Genitourinary Surgery: No Hx Section: No Hx Orthopedic Surgery: Yes (LOWER BACK SX WITH 4 PLATES IN 03/07/2016) Hx Hysterectomy: No Other Surgical History: Fx bilateral wrist sx. Anesthesia Reaction: No - PPD History Date: 04/14/18 Results: 0 mm - Smoking Cessation Smoking history: Current every day smoker Have you smoked in the past 12 months: Yes Aproximately how many cigarettes per day: 7 Cigars Per Day: 0 Hx Chewing Tobacco Use: No - Substances abused Cocaine Substance route: Smoking Frequency: 1-3 times last 30 days Amount used: $50 Age of first use: 19 Date of last use: 01/05/19 Alprazolam (Xanax) Substance route: Oral Frequency: Daily Amount used: (4) 2mg Age of first use: 37 Date of last use: 01/08/19 Admission Physical Exam S - Vital Signs Vital Signs: Vital Signs - 24 hr 01/08/19 13:12 Temperature 98.1 F Pulse Rate 80 Respiratory 18 Rate Blood Pressure 125/83 - Physical General Appearance: Yes: No Apparent Distress, Anxious HEENTM: Yes: Hearing grossly Normal, Normocephalic Respiratory: Yes: Lungs Clear, Normal Breath Sounds, No Accessory Muscle Use Neck: Yes: Within Normal Limits Cardiology: Yes: Regular Rhythm, Regular Rate, S1, S2 Abdominal: Yes: Normal Bowel Sounds, Non Tender, Soft Musculoskeletal: Yes: Within Normal Limits Extremities: Yes: Normal Inspection, Normal Range of Motion, Non-Tender 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: Yes: atmospheric drier tender II-XII NML intact, Fully Oriented, Alert Integumentary: Yes: Within Normal Limits Breathalyzer - Breathalyzer Breathalyzer: 0 Urine Drug Screen - Test Device Lot number: [id number] Expiration date: 08/17/20 - Control Is test valid?: Yes - Results Drug screen NEGATIVE: No Urine drug screen results: YAZ-Cocaine, MTD-Methadone, BZO-Benzodiazepines
--- NOTE | 2019-01-08 14:47 | PN ---
"Teaching Attending Note Name of Resident: Sherin Oliva ATTENDING PHYSICIAN STATEMENT I saw and evaluated the patient. I reviewed the resident's note and discussed the case with the resident. I agree with the resident's findings and plan as documented. SUBJECTIVE: pt here for xanax detox , claims [address] use since she no longer has rx for clonazepam . Denies ETOH use in MMTP current daily dose 90 mg . OBJECTIVE: wnwd CIWA-12 This report was requested by: Nida Rome | Reference #: [id number] Others' Prescriptions Patient Name: Lanette Olivarez Date: 1950 Address: [address] [place] [address] Sex: Female Rx Written Rx Dispensed Drug Quantity Days Supply Prescriber Name 11/05/2018 11/06/2018 clonazepam 2 mg tablet 60 30 Imelda Klein MD 09/28/2018 10/16/2018 clonazepam 2 mg tablet 60 30 [facility] 09/28/2018 10/02/2018 oxycodone hcl 10 mg tablet 5 1 [facility] 09/12/2018 09/12/2018 clonazepam 2 mg tablet 60 30 Hannah Sarah MD Vital Signs - 24 hr 01/08/19 13:12 Temperature 98.1 F Pulse Rate 80 Respiratory 18 Rate Blood Pressure 125/83 ASSESSMENT AND PLAN: Benzodiazepine use disorder - Valium detox ."
[2019-01-08] MEDS ORDERED: hydrOXYzine PAMOATE 25 MG CAPSULE (FP) PO PRN (14:58)
[2019-01-08] MEDS ORDERED: MELATONIN 5 MG TABLETS PO PRN (14:58)
[2019-01-08] MEDS ORDERED: ACETAMINOPHEN 325 MG TABLET (FP) PO PRN ×2 (14:58)
[2019-01-08] MEDS ORDERED: MAGNESIUM CITRATE 300 ML BOTTLE PO PRN (14:58)
[2019-01-08] MEDS ORDERED: MAGNESIUM HYDROX 2400MG/30ML ORAL SUSPENSION 30 ML CUP PO PRN (14:58)
[2019-01-08] MEDS ORDERED: IBUPROFEN 400 MG TABLET (FP) PO PRN (14:58)
[2019-01-08] MEDS ORDERED: MAG HYDROX/AL HYDROX/SIMETH 30 ML UNIT-DOSE CUP PO PRN (14:58)
[2019-01-08] MEDS ORDERED: MENTHOL/PHENOL 1 EACH UD MM PRN (14:58)
[2019-01-08] MEDS ORDERED: METHOCARBAMOL 500 MG TABLET PO PRN (14:58)
[2019-01-08] MEDS ORDERED: BISMUTH SUBSALICYLATE 262 MG/15 ML BTL PO PRN (14:58)
[2019-01-08] MEDS: diazePAM 5 MG TABLET PO PRN ×2 (16:05→20:06)
[2019-01-08] MEDS: THIAMINE HCL 100 MG TABLET (FP) PO SCH (22:30)
[2019-01-08] MEDS: diazePAM 5 MG TABLET PO SCH (22:31)
[2019-01-09] MEDS: diazePAM 5 MG TABLET PO PRN ×5 (00:38→17:19)
[2019-01-09] MEDS ORDERED: METHADONE HCL 40 MG DISPERSABLE TABLET ONE (04:43)
[2019-01-09] MEDS ORDERED: METHADONE HCL 10 MG TABLET ONE (04:43)
[2019-01-09] MEDS: METHADONE 80 MG, METHADONE 10 MG PO SCH (05:28)
[2019-01-09] MEDS ORDERED: METHADONE HCL 10 MG TABLET PO SCH (06:00)
[2019-01-09] MEDS: diazePAM 5 MG TABLET PO SCH ×3 (06:48→21:05)
[2019-01-09] MEDS: PRENATAL VITAMINS W/ FOLIC ACID TABLET (FP) PO SCH (09:37)
[2019-01-09 09:51] LABS: HEMATOCRIT 35.8 % (32.4-45.2); HEMOGLOBIN 12.1 GM/dL (10.7-15.3); MCH 33.9 pg (25.7-33.7); MCHC 33.7 g/dl (32.0-36.0); MEAN CELL VOLUME 100.7 fl (80-96); MEAN PLT VOLUME 11.1 fl (7.5-11.1); PLATELET COUNT 143 K/MM3 (134-434); RBC 3.56 M/mm3 (3.60-5.2); WHITE BLOOD COUNT 4.3 K/mm3 (4.0-10.0)
[2019-01-09 10:30] LABS: ALBUMIN 3.9 g/dl (3.4-5.0); BILIRUBIN,TOTAL 0.5 mg/dL (0.2-1); BLOOD UREA NITROGEN 10.8 mg/dL (7-18); CALCIUM 9.1 mg/dL (8.5-10.1); CREATININE 0.8 mg/dL (0.55-1.3); TOT PROT 7.3 g/dl (6.4-8.2)
--- NOTE | 2019-01-09 12:09 | PN ---
[facility] CIWA - CIWA Score Nausea/Vomitin-Mild Nausea/No Vomiting Muscle Tremors: 2 Anxiety: 4-Mod. Anxious/Guarded Agitation: 3 Paroxysmal Sweats: 2 Orientation: 1-Uncertain about Date Tacttile Disturbances: 0-None Auditory Disturbances: 0-None Visual Disturbances: 0-None Headache: 0-None Present CIWA-Ar Total Score: 13 S Progress Note (SOAP) Subjective: 68 years old female admitted on 01/08/19 for benzo withdrawal sx managment had methadone 90 mg po today doing better ate breakfast limited conversation with staff Objective: 01/09/19 12:08 Vital Signs Temperature 97.4 F L 01/09/19 09:15 Pulse Rate 77 01/09/19 09:15 Respiratory Rate 16 01/09/19 09:15 Blood Pressure 127/86 01/09/19 09:15 O2 Sat by Pulse Oximetry (%) Laboratory Last Values WBC 4.3 K/mm3 (4.0-10.0) 01/09/19 08:15 RBC 3.56 M/mm3 (3.60-5.2) L 01/09/19 08:15 Hgb 12.1 GM/dL (10.7-15.3) 01/09/19 08:15 Hct 35.8 % (32.4-45.2) 01/09/19 08:15 MCV 100.7 fl (80-96) H 01/09/19 08:15 MCH 33.9 pg (25.7-33.7) H 01/09/19 08:15 MCHC 33.7 g/dl (32.0-36.0) 01/09/19 08:15 RDW 14.0 % (11.6-15.6) 01/09/19 08:15 Plt Count 143 K/MM3 (134-434) 01/09/19 08:15 MPV 11.1 fl (7.5-11.1) 01/09/19 08:15 Sodium 137 mmol/L (136-145) 01/09/19 08:15 Potassium 4.0 mmol/L (3.5-5.1) 01/09/19 08:15 Chloride 100 mmol/L (98-107) 01/09/19 08:15 Carbon Dioxide 30 mmol/L (21-32) 01/09/19 08:15 Anion Gap 7 MMOL/L (8-16) L 01/09/19 08:15 BUN 10.8 mg/dL (7-18) 01/09/19 08:15 Creatinine 0.8 mg/dL (0.55-1.3) 01/09/19 08:15 Est GFR (CKD-EPI)AfAm 89.04 01/09/19 08:15 Est GFR (CKD-EPI)NonAf 76.83 01/09/19 08:15 Random Glucose 113 mg/dL (74-106) H 01/09/19 08:15 Calcium 9.1 mg/dL (8.5-10.1) 01/09/19 08:15 Total Bilirubin 0.5 mg/dL (0.2-1) 01/09/19 08:15 AST 36 U/L (15-37) 01/09/19 08:15 ALT 52 U/L (13-61) 01/09/19 08:15 Alkaline Phosphatase 89 U/L (45-117) 01/09/19 08:15 Total Protein 7.3 g/dl (6.4-8.2) 01/09/19 08:15 Albumin 3.9 g/dl (3.4-5.0) 01/09/19 08:15 RPR Titer Nonreactive (NONREACTIVE) 01/09/19 08:15 lab noted Assessment: 01/09/19 12:08 benzo withdrawal sx Plan: continue valium detox regimen
[2019-01-09] MEDS: DOCUSATE SODIUM 100 MG CAPSULE (FP) PO SCH ×2 (14:02→21:05)
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
[2019-01-09] MEDS: NICOTINE POLACRILEX 4 MG GUM BUC PRN ×2 (17:39→19:40)
[2019-01-09] MEDS: THIAMINE HCL 100 MG TABLET (FP) PO SCH (21:05)
[2019-01-09] MEDS ORDERED: QUEtiapine FUMARATE 200 MG TABLET PO SCH (22:00)
[2019-01-10] MEDS ORDERED: METHADONE HCL 40 MG DISPERSABLE TABLET ONE (04:38)
[2019-01-10] MEDS ORDERED: METHADONE HCL 10 MG TABLET ONE (04:38)
[2019-01-10] MEDS: DOCUSATE SODIUM 100 MG CAPSULE (FP) PO SCH (05:40)
[2019-01-10] MEDS: METHADONE 80 MG, METHADONE 10 MG PO SCH (05:40)
[2019-01-10] MEDS ORDERED: diazePAM 5 MG TABLET PO SCH (06:00)
[2019-01-10] MEDS: diazePAM 5 MG TABLET PO PRN ×2 (07:43→11:56)
[2019-01-10 09:25] VITALS: BP 112/75; PULSE 79; TEMP 97.8
--- NOTE | 2019-01-10 09:43 | PN ---
[facility] CIWA - CIWA Score Nausea/Vomitin-No Nausea/No Vomiting Muscle Tremors: 2 Anxiety: 2 Agitation: 2 Paroxysmal Sweats: No Perspiration Orientation: 0-Oriented Tacttile Disturbances: 0-None Auditory Disturbances: 1-Very Mild Visual Disturbances: 0-None Headache: 1-Very Mild CIWA-Ar Total Score: 8 S Progress Note (SOAP) Subjective: doing well with valium detox regimen seen by psychiatrist no medical intervention at this time ambulating on hallway social with peers in day room Objective: 01/10/19 09:45 Vital Signs Temperature 97.8 F 01/10/19 09:24 Pulse Rate 79 01/10/19 09:24 Respiratory Rate 18 01/10/19 09:24 Blood Pressure 112/75 01/10/19 09:24 O2 Sat by Pulse Oximetry (%) Laboratory Last Values WBC 4.3 K/mm3 (4.0-10.0) 01/09/19 08:15 RBC 3.56 M/mm3 (3.60-5.2) L 01/09/19 08:15 Hgb 12.1 GM/dL (10.7-15.3) 01/09/19 08:15 Hct 35.8 % (32.4-45.2) 01/09/19 08:15 MCV 100.7 fl (80-96) H 01/09/19 08:15 MCH 33.9 pg (25.7-33.7) H 01/09/19 08:15 MCHC 33.7 g/dl (32.0-36.0) 01/09/19 08:15 RDW 14.0 % (11.6-15.6) 01/09/19 08:15 Plt Count 143 K/MM3 (134-434) 01/09/19 08:15 MPV 11.1 fl (7.5-11.1) 01/09/19 08:15 Sodium 137 mmol/L (136-145) 01/09/19 08:15 Potassium 4.0 mmol/L (3.5-5.1) 01/09/19 08:15 Chloride 100 mmol/L (98-107) 01/09/19 08:15 Carbon Dioxide 30 mmol/L (21-32) 01/09/19 08:15 Anion Gap 7 MMOL/L (8-16) L 01/09/19 08:15 BUN 10.8 mg/dL (7-18) 01/09/19 08:15 Creatinine 0.8 mg/dL (0.55-1.3) 01/09/19 08:15 Est GFR (CKD-EPI)AfAm 89.04 01/09/19 08:15 Est GFR (CKD-EPI)NonAf 76.83 01/09/19 08:15 Random Glucose 113 mg/dL (74-106) H 01/09/19 08:15 Calcium 9.1 mg/dL (8.5-10.1) 01/09/19 08:15 Total Bilirubin 0.5 mg/dL (0.2-1) 01/09/19 08:15 AST 36 U/L (15-37) 01/09/19 08:15 ALT 52 U/L (13-61) 01/09/19 08:15 Alkaline Phosphatase 89 U/L (45-117) 01/09/19 08:15 Total Protein 7.3 g/dl (6.4-8.2) 01/09/19 08:15 Albumin 3.9 g/dl (3.4-5.0) 01/09/19 08:15 RPR Titer Nonreactive (NONREACTIVE) 01/09/19 08:15 lab noted Assessment: 01/10/19 09:45 benzo withdrawal sx Plan: continue valium detox regimen
[2019-01-10] MEDS: NICOTINE POLACRILEX 4 MG GUM BUC PRN (10:09)
[2019-01-10] MEDS: PRENATAL VITAMINS W/ FOLIC ACID TABLET (FP) PO SCH (10:09)
--- NOTE | 2019-01-10 14:48 | DS ---
[facility] Detox Discharge Summary Admission Date: 01/08/19 Discharge Date: 01/10/19 - History Present History: Sedative Dependence Additional Comments: 68 years old female admitted on 01/08/19 for benzo withdrawal sx management did well with valium detox regimen no complication through out the detox stay seen by psychiatrist treated with seroquel patient is alert oriented x 3 cardiac S1S2 regular rate rhythm respiratory clear lung bilaterally on auscultation extremities full range of motion - Physical Exam Results Vital Signs: Vital Signs Temperature 97.8 F 01/10/19 09:24 Pulse Rate 79 01/10/19 09:24 Respiratory Rate 18 01/10/19 09:24 Blood Pressure 112/75 01/10/19 09:24 O2 Sat by Pulse Oximetry (%) Pertinent Admission Physical Exam Findings: benzo withdrawal sx Laboratory Last Values WBC 4.3 K/mm3 (4.0-10.0) 01/09/19 08:15 RBC 3.56 M/mm3 (3.60-5.2) L 01/09/19 08:15 Hgb 12.1 GM/dL (10.7-15.3) 01/09/19 08:15 Hct 35.8 % (32.4-45.2) 01/09/19 08:15 MCV 100.7 fl (80-96) H 01/09/19 08:15 MCH 33.9 pg (25.7-33.7) H 01/09/19 08:15 MCHC 33.7 g/dl (32.0-36.0) 01/09/19 08:15 RDW 14.0 % (11.6-15.6) 01/09/19 08:15 Plt Count 143 K/MM3 (134-434) 01/09/19 08:15 MPV 11.1 fl (7.5-11.1) 01/09/19 08:15 Sodium 137 mmol/L (136-145) 01/09/19 08:15 Potassium 4.0 mmol/L (3.5-5.1) 01/09/19 08:15 Chloride 100 mmol/L (98-107) 01/09/19 08:15 Carbon Dioxide 30 mmol/L (21-32) 01/09/19 08:15 Anion Gap 7 MMOL/L (8-16) L 01/09/19 08:15 BUN 10.8 mg/dL (7-18) 01/09/19 08:15 Creatinine 0.8 mg/dL (0.55-1.3) 01/09/19 08:15 Est GFR (CKD-EPI)AfAm 89.04 01/09/19 08:15 Est GFR (CKD-EPI)NonAf 76.83 01/09/19 08:15 Random Glucose 113 mg/dL (74-106) H 01/09/19 08:15 Calcium 9.1 mg/dL (8.5-10.1) 01/09/19 08:15 Total Bilirubin 0.5 mg/dL (0.2-1) 01/09/19 08:15 AST 36 U/L (15-37) 01/09/19 08:15 ALT 52 U/L (13-61) 01/09/19 08:15 Alkaline Phosphatase 89 U/L (45-117) 01/09/19 08:15 Total Protein 7.3 g/dl (6.4-8.2) 01/09/19 08:15 Albumin 3.9 g/dl (3.4-5.0) 01/09/19 08:15 RPR Titer Nonreactive (NONREACTIVE) 01/09/19 08:15 lab noted - Treatment Hospital Course: Detox Protocol Followed, Detoxed Safely, Responded well, Discharged Condition Good, Rehab Referral Accepted Patient has Accepted a Rehab Referral to: methadone maintenance program/HIV clinic - Medication Discharge Medications: Ambulatory Orders Emtricitabine/Tenofovir [Truvada -] 1 tab PO DAILY #30 tablet 10/31/14 Darunavir Ethanolate [Prezista -] 600 mg PO BID #60 tab 05/14/17 Ritonavir [Norvir -] 100 mg PO BID #60 tab 05/14/17 Methadone [Dolophine -] 90 mg PO DAILY 04/12/18 Quetiapine Fumarate [Seroquel -] 400 mg PO HS 01/08/19 - Diagnosis (1) Sedative, hypnotic or anxiolytic dependence with withdrawal, uncomplicated Status: Acute (2) HIV (human immunodeficiency virus infection) Status: Chronic Qualifiers: HIV symptom status: asymptomatic Qualified Code(s): Z21 - Asymptomatic human immunodeficiency virus [HIV] infection status (3) Hepatitis C Status: Chronic Qualifiers: Viral hepatitis chronicity: chronic Hepatic coma status: without hepatic coma Qualified Code(s): B18.2 - Chronic viral hepatitis C (4) Methadone maintenance therapy patient Status: Chronic (5) Nicotine dependence Status: Acute Qualifiers: Nicotine product type: cigarettes Substance use status: in withdrawal Qualified Code(s): F17.213 - Nicotine dependence, cigarettes, with withdrawal (6) Weight loss Status: Acute - AMA Did Patient Leave Against Medical Advice: No CIWA Score - CIWA Score Nausea/Vomitin-No Nausea/No Vomiting Muscle Tremors: 1-None Visible, but [place] Anxiety: 1-Mildly Anxious Agitation: 1-Slight > Activity Paroxysmal Sweats: No Perspiration Orientation: 0-Oriented Tacttile Disturbances: 0-None Auditory Disturbances: 0-None Visual Disturbances: 0-None Headache: 1-Very Mild CIWA-Ar Total Score: 4
[2019-01-11] MEDS ORDERED: diazePAM 5 MG TABLET PO ONE (06:00)
== END 2019-01-10 12:57 | disposition home or self-care (01) | DRG 897 ==
LOC: YASAS 11:41 → Y3N 15:13
PROVIDERS: ADMIT Allergy & Immunology; ATTEND Allergy & Immunology
PROC: HZ2ZZZZ Detoxification Services for Substance Abuse Treatment (ICD-10-PCS; principal; 2019-01-08)
DX: F13.230 Sedative, hypnotic or anxiolytic dependence with withdrawal, uncomplicated (principal); F11.20 Opioid dependence, uncomplicated; F14.20 Cocaine dependence, uncomplicated; F17.213 Nicotine dependence, cigarettes, with withdrawal; F31.9 Bipolar disorder, unspecified; F43.10 Post-traumatic stress disorder, unspecified; Z21 Asymptomatic human immunodeficiency virus [HIV] infection status; G47.00 Insomnia, unspecified; R63.4 Abnormal weight loss; Z68.23 Body mass index [BMI] 23.0-23.9, adult; Z91.5 Personal history of self-harm; Z88.8 Allergy status to other drugs, medicaments and biological substances
CPT/HCPCS: 36415; 80053; 85027; 86593